=== PATIENT | female | born 1960 | race Caucasian/White ===

== ENCOUNTER 2016-10-09 18:35 | Observation (INO) | payer MEDICARE, BC, OTHER ==
[2016-10-09] MEDS ORDERED: NITROGLYCERIN SL TABS 0.4 MG TAB SUBLINGUAL STA ×3 (19:25)
[2016-10-09] MEDS ORDERED: ASPIRIN 81 MG CHEW PO STA (19:25)
--- NOTE | 2016-10-09 19:28 | ED ---
General Adult HPI - General Chief complaint: Chest Pain Stated complaint: CHEST PAIN, PRESSURE Time Seen by Provider: 10/09/16 19:00 Source: patient, RN notes reviewed Mode of arrival: wheelchair Limitations: no limitations - History of Present Illness Initial comments: Patient is a pleasant 55-year-old female presenting to the emergency Department with chest pressure. Onset was yesterday. Symptoms have been fairly steady. Patient did have some discomfort of her left mid arm. Patient does have some associated dyspnea. Symptoms seem to be exertional. Patient was nauseated yesterday and did vomit once. Patient has had some sweating. Patient did have similar symptoms years ago associated with a heart attack. Patient has had some cramping of her legs. Patient feels lightheaded. - Related Data Home Medications Medication Instructions Recorded Confirmed Atorvastatin [Lipitor] 40 mg PO HS 05/07/14 10/09/16 Furosemide [Lasix] 20 mg PO DAILY 05/07/14 10/09/16 Metoprolol Succinate [Toprol XL] 25 mg PO DAILY 05/07/14 10/09/16 Potassium Chloride [K-Tab] 10 meq PO DAILY 05/07/14 10/09/16 Aspirin EC [Ecotrin] 325 mg PO DAILY 10/09/16 10/09/16 Isosorbide Mononitrate ER [Imdur] 30 mg PO DAILY 10/09/16 10/09/16 Omeprazole 40 mg PO DAILY 10/09/16 10/09/16 Allergies Allergy/AdvReac Type Severity Reaction Status Date / Time Iodinated Contrast Media - AdvReac Severe Decreased Verified 10/09/16 19:29 Oral and Blood Pressure codeine AdvReac Nausea & Verified 10/09/16 19:29 Vomiting Review of Systems ROS Statement: Those systems with pertinent positive or pertinent negative responses have been documented in the HPI. ROS Other: All systems not noted in ROS Statement are negative. Constitutional: Denies: fever Eyes: Denies: eye pain ENT: Denies: ear pain Respiratory: Reports: dyspnea. Denies: cough Cardiovascular: Reports: chest pain Endocrine: Reports: fatigue Gastrointestinal: Denies: abdominal pain Genitourinary: Denies: dysuria Musculoskeletal: Denies: back pain Skin: Denies: rash Neurological: Denies: headache Past Medical History Past Medical History: Asthma, Hyperlipidemia, Hypertension, Myocardial Infarction ([place]) History of Any Multi-Drug Resistant Organisms: None Reported Past Surgical History: Heart Catheterization, Orthopedic Surgery Past Psychological History: No Psychological Hx Reported Smoking Status: Former smoker Past Alcohol Use History: None Reported Past Drug Use History: None Reported General Exam Limitations: no limitations General appearance: alert, in no apparent distress Head exam: Present: atraumatic Eye exam: Present: normal appearance, PERRL ENT exam: Present: normal oropharynx Neck exam: Present: normal inspection Respiratory exam: Present: normal lung sounds bilaterally Cardiovascular Exam: Present: regular rate, normal rhythm Expanded Peripheral pulses: 2+: Radial (R), Radial (L), Posterior Tibialis (R), Posterior Tibialis (L) GI/Abdominal exam: Present: soft. Absent: tenderness Extremities exam: Present: normal inspection. Absent: pedal edema, calf tenderness Neurological exam: Present: alert Psychiatric exam: Present: normal affect, normal mood Skin exam: Absent: rash Course Vital Signs 10/09/16 10/09/16 10/09/16 18:37 19:43 20:00 Temperature 96.9 F L Pulse Rate 104 H 101 H 95 Respiratory 18 18 18 Rate Blood Pressure 141/90 136/73 150/62 O2 Sat by Pulse 97 97 96 Oximetry 10/09/16 20:27 Temperature Pulse Rate 81 Respiratory 20 Rate Blood Pressure 141/61 O2 Sat by Pulse 99 Oximetry EKG Findings - EKG Comments: EKG Findings:: Sinus tachycardia 107. Frequent PVCs. AR 138. QRS 24. QT 342. QTC 456. Left axis. Inferior Q waves. There is some T wave inversion. Medical Decision Making - Medical Decision Making Patient reexamined and resting comfortably in bed. Patient and family updated on results and plan. Patient also updated regarding results of d-dimer and potential for blood clot. Patient nonetheless refuses computed tomography scan. VQ scan will be ordered. Case was discussed in detail with Dr. Kwan, who will admit for Dr. Live. - Lab Data Result diagrams: 10/09/16 19:00 10/09/16 19:00 Lab Results 10/09/16 10/09/16 10/09/16 Range/Units 19:00 19:00 19:00 WBC 7.9 (3.8-10.6) k/uL RBC 4.91 (3.80-5.40) m/uL Hgb 14.5 (11.4-16.0) gm/dL Hct 44.4 (34.0-46.0) % MCV 90.3 (80.0-100.0) fL MCH 29.6 (25.0-35.0) pg MCHC 32.8 (31.0-37.0) g/dL RDW 13.4 (11.5-15.5) % Plt Count 247 (150-450) k/uL Neutrophils % 63 % Lymphocytes % 25 % Monocytes % 6 % Eosinophils % 2 % Basophils % 1 % Neutrophils # 5.0 (1.3-7.7) k/uL Lymphocytes # 2.0 (1.0-4.8) k/uL Monocytes # 0.5 (0-1.0) k/uL Eosinophils # 0.2 (0-0.7) k/uL Basophils # 0.1 (0-0.2) k/uL PT (9.0-12.0) sec INR (<1.1) APTT (22.0-30.0) sec D-Dimer (<0.60) mg/L FEU Sodium 145 (137-145) mmol/L Potassium 3.4 L (3.5-5.1) mmol/L Chloride 105 (98-107) mmol/L Carbon Dioxide 27 (22-30) mmol/L Anion Gap 13 mmol/L BUN 16 (7-17) mg/dL Creatinine 0.74 (0.52-1.04) mg/dL Est GFR (MDRD) Af Amer >60 (>60 ml/min/1.73 sqM) Est GFR (MDRD) Non-Af >60 (>60 ml/min/1.73 sqM) Glucose 111 H (74-99) mg/dL Calcium 9.4 (8.4-10.2) mg/dL Magnesium 2.0 (1.6-2.3) mg/dL Total Bilirubin 0.8 (0.2-1.3) mg/dL AST 25 (14-36) U/L ALT 36 (9-52) U/L Alkaline Phosphatase 127 H (38-126) U/L Total Creatine Kinase 39 (30-135) U/L CK-MB (CK-2) 0.5 (0.0-2.4) ng/mL CK-MB (CK-2) Rel Index 1.3 Troponin I <0.012 (0.000-0.034) ng/mL NT-Pro-B Natriuret Pep pg/mL Total Protein 7.3 (6.3-8.2) g/dL Albumin 4.1 (3.5-5.0) g/dL 10/09/16 10/09/16 Range/Units 19:00 19:00 WBC (3.8-10.6) k/uL RBC (3.80-5.40) m/uL Hgb (11.4-16.0) gm/dL Hct (34.0-46.0) % MCV (80.0-100.0) fL MCH (25.0-35.0) pg MCHC (31.0-37.0) g/dL RDW (11.5-15.5) % Plt Count (150-450) k/uL Neutrophils % % Lymphocytes % % Monocytes % % Eosinophils % % Basophils % % Neutrophils # (1.3-7.7) k/uL Lymphocytes # (1.0-4.8) k/uL Monocytes # (0-1.0) k/uL Eosinophils # (0-0.7) k/uL Basophils # (0-0.2) k/uL PT 10.2 (9.0-12.0) sec INR 1.0 (<1.1) APTT 23.3 (22.0-30.0) sec D-Dimer 0.77 H (<0.60) mg/L FEU Sodium (137-145) mmol/L Potassium (3.5-5.1) mmol/L Chloride (98-107) mmol/L Carbon Dioxide (22-30) mmol/L Anion Gap mmol/L BUN (7-17) mg/dL Creatinine (0.52-1.04) mg/dL Est GFR (MDRD) Af Amer (>60 ml/min/1.73 sqM) Est GFR (MDRD) Non-Af (>60 ml/min/1.73 sqM) Glucose (74-99) mg/dL Calcium (8.4-10.2) mg/dL Magnesium (1.6-2.3) mg/dL Total Bilirubin (0.2-1.3) mg/dL AST (14-36) U/L ALT (9-52) U/L Alkaline Phosphatase (38-126) U/L Total Creatine Kinase (30-135) U/L CK-MB (CK-2) (0.0-2.4) ng/mL CK-MB (CK-2) Rel Index Troponin I (0.000-0.034) ng/mL NT-Pro-B Natriuret Pep 102 pg/mL Total Protein (6.3-8.2) g/dL Albumin (3.5-5.0) g/dL - Radiology Data Radiology results: image reviewed (Chest x-ray shows stable cardiomegaly. No acute process.) Disposition Clinical Impression: Unstable angina pectoris Disposition: ADMITTED IP TO THIS HOSP
[2016-10-09 19:44] LABS: Basophils # (A) 0.1 k/uL (0-0.2); Basophils % (A) 1 %; CH 29.9; CHCM 33.2; Eosinophils # (A) 0.2 k/uL (0-0.7); Eosinophils % (A) 2 %; HCT 44.4 % (34.0-46.0); HDW 2.42; HGB 14.5 gm/dL (11.4-16.0); Luc # (Auto) 0.17; Luc % (Auto) 2; Lymphocytes % (A) 25 %; MCH 29.6 pg (25.0-35.0); MCHC 32.8 g/dL (31.0-37.0); MCV 90.3 fL (80.0-100.0); Mean Platelet Volume 7.9; Monocytes # (A) 0.5 k/uL (0-1.0); Monocytes % (A) 6 %; Neutrophils % (A) 63 %; RBC 4.91 m/uL (3.80-5.40); RDW 13.4 % (11.5-15.5); WBC 7.9 k/uL (3.8-10.6); WBC (Perox) 8.04
[2016-10-09 19:49] LABS: ALT 36 U/L (9-52); AST 25 U/L (14-36); Alkaline Phosphatase 127 U/L (38-126); Anion Gap 13 mmol/L; Blood Urea Nitrogen 16 mg/dL (7-17); Calcium 9.4 mg/dL (8.4-10.2); Carbon Dioxide 27 mmol/L (22-30); Chloride 105 mmol/L (98-107); Glucose 111 mg/dL (74-99); Non-African American GFR(MDRD) >60 (>60 ml/min/1.73 sqM); Potassium 3.4 mmol/L (3.5-5.1); Sodium 145 mmol/L (137-145); Total Bilirubin 0.8 mg/dL (0.2-1.3); Total Protein 7.3 g/dL (6.3-8.2)
--- NOTE | 2016-10-09 19:49 | XR ---
EXAMINATION TYPE: XR chest 2V DATE OF EXAM: 10/09/2016 7:35 PM COMPARISON: Prior chest x-ray 07 May 2014 HISTORY: Chest pain, history of myocardial infarct TECHNIQUE: Frontal and lateral views of the chest are obtained. FINDINGS: Heart is stable and enlarged. Prominent lung volumes may be indicative of COPD. No pneumon ia, pneumothorax, or pleural effusion is evident. There are overlying cardiac leads. Pulmonary vascul arity and marsha not significantly changed. IMPRESSION: No acute cardiopulmonary process. Stable cardiomegaly.
[2016-10-09 19:59] LABS: Creatine Kinase 39 U/L (30-135)
[2016-10-09] MEDS ORDERED: ACETAMINOPHEN TAB 325 MG TAB PO STA (19:59)
[2016-10-09 20:11] LABS: Creatine Kinase MB 0.5 ng/mL (0.0-2.4); Troponin I <0.012 ng/mL (0.000-0.034)
[2016-10-09 20:21] LABS: Partial Thromboplastin Time 23.3 sec (22.0-30.0); Prothrombin Time 10.2 sec (9.0-12.0)
[2016-10-09] MEDS ORDERED: FAMOTIDINE 20 MG/2 ML VIAL IV STA (20:42)
[2016-10-09] MEDS ORDERED: diphenhydrAMINE 50 MG/ML 1 ML VIAL IVP STA (20:42)
[2016-10-09] MEDS ORDERED: RX INFO: IV CONTRAST WAS GIVEN 1 EACH MISC MISCELLANE PRN (20:42)
[2016-10-09] MEDS ORDERED: methylPREDNISolone SOD SUCCI 125 MG/2 ML VIAL IV STA (20:42)
[2016-10-09] MEDS ORDERED: NITROGLYCERIN SL TABS 0.4 MG TAB SUBLINGUAL PRN (21:01)
[2016-10-09] MEDS ORDERED: HEPARIN SODIUM,PORCINE 5,000 UNIT/ML 1 ML VIAL IV PRN (21:01)
[2016-10-09] MEDS ORDERED: HEPARIN SODIUM,PORCINE 5,000 UNIT/ML 1 ML VIAL IV ONE (21:01)
[2016-10-09] MEDS ORDERED: HEPARIN SODIUM,PORCINE/D5W PMX 25,000 UNIT in DEXTROSE/WATER 1 500ML.BAG IV SCH (21:15)
[2016-10-09] MEDS ORDERED: SODIUM CHLORIDE 0.9% 1,000 ML IV SCH (21:30)
[2016-10-09 22:14] VITALS: BMI 50.1
[2016-10-09] MEDS ORDERED: ONDANSETRON 4 MG/2 ML VIAL IVP PRN (22:30)
[2016-10-09] MEDS ORDERED: HYDROmorphone 1 MG/ML 1 ML SYRINGE IVP PRN (22:34)
[2016-10-09] MEDS ORDERED: ATORVASTATIN 40 MG TAB PO SCH (22:45)
--- NOTE | 2016-10-09 23:22 | NM ---
EXAMINATION TYPE: Nuclear medicine ventilation and perfusion lung scan. DATE OF EXAM: 10/09/2016 11:12 PM COMPARISON: NONE HISTORY: Pain and dyspnea. TECHNIQUE: Utilizing inhalation of 70.9 mCi Tc 99m DTPA aerosol and intravenous injection of 5.36 mC i of Tc 99m MAA, ventilation and perfusion images are acquired post injection in multiple projections . FINDINGS: Normal radiotracer distribution is noted in the lungs. There is no evidence of mismatched defects. IMPRESSION: There is a low probability for acute pulmonary embolism.
[2016-10-09] MEDS: METOPROLOL SUCCINATE (ER) 25 MG TAB.ER.24H PO SCH (23:24)
[2016-10-09] MEDS: POTASSIUM CHLORIDE ER 10 MEQ TAB.ER.PRT PO SCH (23:24)
[2016-10-09] MEDS: NITROGLYCERIN OINT 1 INCH/GM PACKET TOPICAL SCH (23:24)
[2016-10-09] MEDS: PANTOPRAZOLE 40 MG TABLET PO SCH (23:24)
[2016-10-09] MEDS: ISOSORBIDE MONONITRATE ER 30 MG TAB.ER.24H PO SCH (23:24)
[2016-10-10 02:49] LABS: Mean Platelet Volume 7.5
[2016-10-10 02:59] LABS: Cholesterol 178 mg/dL (<200); Creatine Kinase 28 U/L (30-135); HDL Cholesterol 64 mg/dL (40-60); Triglycerides 138 mg/dL (<150)
[2016-10-10 03:12] LABS: Creatine Kinase MB 0.4 ng/mL (0.0-2.4); Troponin I <0.012 ng/mL (0.000-0.034)
[2016-10-10] MEDS ORDERED: ACETAMINOPHEN TAB 325 MG TAB PO PRN (04:26)
[2016-10-10] MEDS: NITROGLYCERIN OINT 1 INCH/GM PACKET TOPICAL SCH (04:28)
[2016-10-10 08:27] LABS: Creatine Kinase 27 U/L (30-135)
[2016-10-10 08:39] LABS: Creatine Kinase MB 0.4 ng/mL (0.0-2.4); Troponin I <0.012 ng/mL (0.000-0.034)
[2016-10-10] MEDS ORDERED: FUROSEMIDE 20 MG TAB PO SCH (09:00)
[2016-10-10] MEDS ORDERED: ASPIRIN 325 MG TAB PO SCH (09:00)
[2016-10-10] MEDS ORDERED: POTASSIUM CHLORIDE ORAL LIQUID 40 MEQ/30 ML CUP PO ONE (09:28)
[2016-10-10] MEDS ORDERED: REGADENOSON 0.4 MG/5 ML SYRINGE IV ONE (09:30)
[2016-10-10] MEDS ORDERED: ASPIRIN 81 MG CHEW PO SCH (09:30)
[2016-10-10] MEDS ORDERED: AMINOPHYLLINE 500 MG/20 ML VIAL IV PRN (09:30)
[2016-10-10] MEDS: PANTOPRAZOLE 40 MG TABLET PO SCH (10:12)
[2016-10-10] MEDS: METOPROLOL SUCCINATE (ER) 25 MG TAB.ER.24H PO SCH (10:12)
[2016-10-10] MEDS: ISOSORBIDE MONONITRATE ER 30 MG TAB.ER.24H PO SCH (10:12)
[2016-10-10] MEDS: POTASSIUM CHLORIDE ER 10 MEQ TAB.ER.PRT PO SCH (10:13)
--- NOTE | 2016-10-10 10:20 | CONS ---
DATE OF CONSULTATION: This is a 55-year-old morbidly obese lady with a history of palpitations and PVCs who was seen by Dr. Briones and placed on beta edson several years ago. She has not been very good with follow-up. She came into the hospital with mostly complaints of what seems to be a left arm discomfort. She felt discomfort in the left upper arm and left mid arm, which seemed to come on spontaneously and not necessarily with exertion. She had some shortness of breath as well. She did not have any chest discomfort. She also had occasional palpitations. She came in with these symptoms, was seen in the emergency room, had a mildly elevated d-dimer. She had a contrast allergy and therefore went on to have a VQ scan, which was low probability. Her left arm pain has resolved. She feels comfortable but on questioning, with activity she has shortness of breath, which has increased lately and the left arm pain seems to be a one-time thing and has not recurred. However, she has uncomfortable feeling in the chest with shortness of breath and she attends to her father who has a congestive heart failure and takes care of him, but she herself is not very active physically. In view of her nondescript exertional shortness of breath, which seems to have increased and also some tightness in the chest from time to time, I am recommending a Lexiscan stress test and echocardiogram. This was also offered as an outpatient but patient wants to stay back and have test done while she is here. Her troponins are normal. EKG revealed sinus mechanism with isolated PVCs and nonspecific precordial ST-T changes. She is already on a beta edson. At the time of my evaluation, she is quite asymptomatic. PAST MEDICAL HISTORY: 1. Hypertension. 2. Palpitations with PVCs on beta edson seen by Dr. Briones several years ago. 3. She also has hyperlipidemia, bronchial asthma and in 1997 she had an episode of angina. 4. She has had 5 cardiac caths according to her. The last one in 2009 and was told she has no more than a 50% lesion, and this was performed in [facility]. She had a contrast allergy on the first cardiac catheterization in 1997 but since then with premedication she has not had issues. Medications at home include atorvastatin, Lasix 20 mg daily, Toprol-XL 25 mg daily, potassium 10 mg daily, aspirin 325 mg daily, Imdur 30 mg daily, omeprazole 40 mg daily. ALLERGIES: She is ALLERGIC TO CODEINE AND IODINE CONTRAST. On examination, blood pressure is 120/70, pulse rate 68 per minute, regular. HEENT: Unremarkable. Fundus was not examined by me. Neck is supple. There is no JVD. I do not hear a carotid bruit. Heart exam reveals S1 and S2 heard normally without a rub, murmur or gallop. Lungs are clear. Abdomen is soft, nontender. Lower extremities reveal normal pulses. No edema. Central nervous system is normal. EKG revealed sinus mechanism, precordial nonspecific ST-T changes which are not new. IMPRESSION: 1. Atypical chest pain in a patient with a moderate risk factor profile. 2. History of PVCs and beta edson. 3. Morbid obesity. 4. Hypertension. 5. Hypercholesterolemia. 6. History of unremarkable cardiac catheterization in 2009. RECOMMENDATIONS: I am recommending that we discontinue IV heparin, put her on a Hep-Lock, increase activity, switch her to Imdur only, discontinue nitro paste, increase activity, perform an echocardiogram and a Lexiscan stress test tomorrow morning and if these are normal, she can be discharged. I discussed my thoughts in detail with the patient as well as her . Thank you very much for the consult.
[2016-10-10] MEDS ORDERED: HEPARIN SODIUM,PORCINE 5,000 UNIT/ML 1 ML VIAL SQ SCH (16:00)
[2016-10-10 19:45] LABS: Anion Gap 10 mmol/L; Blood Urea Nitrogen 13 mg/dL (7-17); Carbon Dioxide 24 mmol/L (22-30); Chloride 105 mmol/L (98-107); Glucose 131 mg/dL (74-99); Non-African American GFR(MDRD) >60 (>60 ml/min/1.73 sqM); Potassium 4.1 mmol/L (3.5-5.1); Sodium 139 mmol/L (137-145)
[2016-10-10 20:47] VITALS: BP 127/55; PULSE 67; RESP 16; TEMP 98.6
--- NOTE | 2016-10-11 09:36 | HP ---
DATE OF ADMISSION: 10/09/2016 CHIEF COMPLAINT: Chest pain. HISTORY OF PRESENT ILLNESS: Ms. Blue is a 55-year-old female with known history of hypertension, hyperlipidemia, morbid obesity, history of [place], came to the ER with complaints of chest pain along with discomfort in the left arm. Evidently patient has not been feeling well for the past 2 days and having nausea and pressure-like sensation in the chest. The patient last night when she was [id number] with the family, suddenly she felt chest pain and blood pressure was elevated at the time when she was checked and family suggested her to go to the ER. Apparently patient has been dealing with stressful situation at family and her father being ill and also her house being remodeled. The patient did have similar symptoms years ago associated with heart attack. Patient does not have any history of stent placement. Patient had a previous cardiac catheterization. Initially her Troponin has been negative. EKG showed sinus rhythm with PVCs. Otherwise, patient is currently chest pain free. REVIEW OF SYSTEMS: CONSTITUTIONAL: No fever. No chills. RESPIRATORY: No cough or sputum production. CARDIOVASCULAR: No chest pain or shortness of breath. No leg swelling. ABDOMEN: No nausea, vomiting, abdominal pain. GENITOURINARY: Negative. ENDOCRINE: Negative. PSYCHIATRIC: Negative. SKIN: Negative. All other fourteen-point review of system negative except as above. Past medical history includes: Hypertension, hyperlipidemia, history of [place] and asthma. PAST SURGICAL HISTORY: Cardiac catheterization, no PCI, orthopedic surgery. SOCIAL HISTORY: Patient is a former smoker, quit several years ago. Denied alcohol or drugs or IVDU. FAMILY HISTORY: History of father had bypass graft and valvular heart disease and coronary artery disease. ALLERGIES INCLUDE IODINATED CONTRAST, ORAL AND CODEINE. Home medications: 1. Atorvastatin. 2. Lasix. 3. Toprol. 4. Potassium chloride. 5. Aspirin. 6. Imdur. 7. Omeprazole. PHYSICAL EXAMINATION: A 55-year-old female sitting in a chair comfortably; awake, alert, oriented times three. The patient appears to be in no apparent distress. VITALS: Blood pressure is 101/58. Pulse is 73, respiration 18, temperature afebrile, pulse ox 94% on room air. HEENT: Atraumatic, normocephalic. Neck is supple. No JVD. CVS: S1, S2 heard. No murmurs, no gallop. LUNGS: Bilateral air entry is present. No wheezing. No crackles. ABDOMEN: Soft, obese. Bowel sounds are present. STOPPER MAKER: Awake, alert, oriented, x3. No focal deficit. EXTREMITIES: No edema. Pulses palpable bilaterally. No clubbing or cyanosis. PSYCHIATRIC: Cooperative. LABORATORY DATA: WBC 7.9, hemoglobin 14.5, platelets 247. D-dimer 0.77. Sodium 145, potassium 3.4, chloride 105, bicarb 27. BUN 16, creatinine 0.74. Troponin x3 is negative. LDL is 86. HDL 64. EKG sinus rhythm with PVCs. CHEST X-RAY: No acute cardiopulmonary process and PET scan showed low probability for PE. IMPRESSION: 1. Atypical chest pain. Rule out acute coronary syndrome. Troponin times two negative. EKG showed sinus rhythm. We will continue the telemetry monitoring. 2. History of premature ventricular contractions and currently on beta blockers. 3. Hypertension. 4. Hyperlipidemia. 5. History of myocardial infarction, status post cardiac catheterization in 2009. 6. Anxiety and emotional stress at home. 7. Deep venous thrombosis prophylaxis. 8. Elevated D-dimer, VQ scan showed low probability for pulmonary embolism. 9. PATIENT IS ALLERGIC TO CONTRAST. DISCUSSION AND PLAN: Patient will be continued on home blood pressure medications and serial EKGs and troponins. Cardiology is planning for Lexiscan stress test tomorrow. Otherwise, we will continue the current management and follow up closely. Further recommendations based on the clinical course.
--- NOTE | 2016-12-06 06:47 | DS ---
DATE OF ADMISSION: 10/09/2016 DATE OF DISCHARGE: 10/10/2016 The patient left AGAINST MEDICAL ADVICE. DISCHARGE DIAGNOSES: 1. Atypical chest pain. Troponin x2 negative. Cardiology is planning for Lexiscan stress test tomorrow, but patient left against medical advice. 2. History of premature ventricular contractions , currently on beta blockers. 3. Hypertension. 4. Hyperlipidemia. 5. History of cardiac catheterization in 2009. It was normal. 6. Anxiety and emotional stress at home. 7. History of myocardial infarction. 8. Deep venous thrombosis prophylaxis. 9. Elevated D-dimer. VQ scan showed low probability for pulmonary embolism. 10. Patient is allergic to CONTRAST. HOSPITAL COURSE: Ms. Blue is a 55-year-old female with a known history of anxiety and recent emotional stress at home admitted to the hospital with complaints of chest pain radiating along the left arm. Initial EKG as well as troponin x2 are negative at this time. Due to moderate risk for coronary artery disease, patient was scheduled for Lexiscan stress test as per Cardiology. Patient otherwise is very anxious and wants to go home. Patient was advised that she might have acute [place] and ( ) complications including . The patient still wants to leave AGAINST MEDICAL ADVICE. The patient is alert and oriented x3 and verbalizes her understanding of acute situation. Otherwise patient left AGAINST MEDICAL ADVICE.
== END 2016-10-10 20:45 | disposition left against medical advice (07) ==
LOC: EC 18:35 → 3OBS 21:01
PROVIDERS: ADMIT Hospitalist; ATTEND Hospitalist
DX: R07.89 Other chest pain (principal); I49.3 Ventricular premature depolarization; E66.01 Morbid (severe) obesity due to excess calories; E78.00 Pure hypercholesterolemia, unspecified; E78.5 Hyperlipidemia, unspecified; F41.9 Anxiety disorder, unspecified; I10 Essential (primary) hypertension; I25.2 Old myocardial infarction; Z79.82 Long term (current) use of aspirin; Z87.891 Personal history of nicotine dependence; R42 Dizziness and giddiness; Z79.899 Other long term (current) drug therapy; Z88.5 Allergy status to narcotic agent; Z91.041 Radiographic dye allergy status; Z82.49 Family history of ischemic heart disease and other diseases of the circulatory system; R06.02 Shortness of breath
CPT/HCPCS: 36415; 93005; 85379; 83880; 80061; 80053; 80048; 82550 ×2; 82553 ×2; 83735; 84484 ×2; 85025; 85049; 85610; 85730 ×2; 71020; 78582; 99285; G0378 ×2; A9540; A9567; J1644 ×3; J2785; 96366; 96372

== ENCOUNTER 2017-01-06 10:13 | Inpatient (IN) | payer BC, MEDICARE, OTHER ==
[2017-01-06] MEDS ORDERED: ALBUTEROL NEBULIZED 2.5 MG/3 ML INHALATION STA (10:42)
[2017-01-06] MEDS ORDERED: SODIUM CHLORIDE 0.9% 1,000 ML IV STA ×2 (10:42)
[2017-01-06] MEDS ORDERED: IPRATROPIUM 0.5 MG/2.5 ML NEBU INHALATION STA (10:42)
--- NOTE | 2017-01-06 11:33 | ED ---
General Adult HPI - General Chief complaint: Upper Respiratory Infection Stated complaint: NADIA, CHEST PRESSURE Time Seen by Provider: 01/06/17 10:41 Source: patient, RN notes reviewed, old records reviewed Mode of arrival: wheelchair Limitations: no limitations - History of Present Illness Initial comments: This is a 48-year-old female here for evaluation. This patient presents for evaluation of shortness of breath cough and congestion, history of asthma and COPD. No recent hospital admissions. No travel history no sick contacts increased sputum production and increased cough episodic fevers at home. Patient also has history of high blood pressure high cholesterol. States that this time she does not feel well - Related Data Home Medications Medication Instructions Recorded Confirmed Atorvastatin [Lipitor] 40 mg PO HS 05/07/14 01/06/17 Furosemide [Lasix] 40 mg PO MOWEFR 05/07/14 01/06/17 Metoprolol Succinate [Toprol XL] 25 mg PO DAILY 05/07/14 01/06/17 Potassium Chloride [K-Tab] 10 meq PO BID 05/07/14 01/06/17 Aspirin EC [Ecotrin] 325 mg PO BID 10/09/16 01/06/17 Isosorbide Mononitrate ER [Imdur] 30 mg PO DAILY 10/09/16 01/06/17 Omeprazole 40 mg PO DAILY 10/09/16 01/06/17 Nitroglycerin Sl Tabs [Nitrostat] 0.4 mg SUBLINGUAL Q5M PRN 10/10/16 01/06/17 Albuterol Inhaler [Ventolin Hfa 1 - 2 puff INHALATION RT-Q6H PRN 01/06/17 Inhaler] Fluticasone/Salmeterol [Advair 1 puff INHALATION RT-BID 01/06/17 01/06/17 250-50 Diskus] Furosemide [Lasix] 20 mg PO SUTUTHSA 01/06/17 01/06/17 Allergies Allergy/AdvReac Type Severity Reaction Status Date / Time Iodinated Contrast Media - AdvReac Severe Decreased Verified 01/06/17 10:31 Oral and Blood Pressure codeine AdvReac Nausea & Verified 01/06/17 10:31 Vomiting Review of Systems ROS Statement: Those systems with pertinent positive or pertinent negative responses have been documented in the HPI. ROS Other: All systems not noted in ROS Statement are negative. Past Medical History Past Medical History: Asthma, Hyperlipidemia, Hypertension, Myocardial Infarction ([place]) Last Myocardial Infarction Date:: 1997 History of Any Multi-Drug Resistant Organisms: None Reported Past Surgical History: Heart Catheterization, Orthopedic Surgery Additional Past Surgical History / Comment(s): B/L knee replacement Past Anesthesia/Blood Transfusion Reactions: No Reported Reaction Past Psychological History: No Psychological Hx Reported Smoking Status: Former smoker Past Alcohol Use History: Rare Past Drug Use History: None Reported - Past Family History Father Family Medical History: Congestive Heart Failure (CHF), CVA/TIA, Hyperlipidemia , Hypertension Mother Additional Family Medical History / Comment(s): Epilepsy General Exam Limitations: no limitations General appearance: alert, in no apparent distress Head exam: Present: atraumatic, normocephalic, normal inspection Eye exam: Present: normal appearance, PERRL, EOMI. Absent: scleral icterus, conjunctival injection, periorbital swelling ENT exam: Present: normal exam, mucous membranes dry, mucous membranes moist Neck exam: Present: normal inspection. Absent: tenderness, meningismus, lymphadenopathy Respiratory exam: Present: normal lung sounds bilaterally, wheezes, accessory muscle use, decreased breath sounds, prolonged expiratory. Absent: respiratory distress, rales, rhonchi, stridor Cardiovascular Exam: Present: regular rate, normal rhythm, normal heart sounds. Absent: systolic murmur, diastolic murmur, rubs, gallop, clicks GI/Abdominal exam: Present: soft, normal bowel sounds. Absent: distended, tenderness, guarding, rebound, rigid Extremities exam: Present: normal inspection, full ROM, normal capillary refill. Absent: tenderness, pedal edema, joint swelling, calf tenderness Back exam: Present: normal inspection Neurological exam: Present: alert, oriented X3, CN II-XII intact Psychiatric exam: Present: normal affect, normal mood Skin exam: Present: warm, dry, intact, normal color. Absent: rash Course Vital Signs 01/06/17 01/06/17 01/06/17 10:27 11:01 11:31 Temperature 98.3 F 98.4 F Pulse Rate 74 74 61 Respiratory 20 18 Rate Blood Pressure 122/74 140/79 O2 Sat by Pulse 94 L 96 Oximetry 01/06/17 01/06/17 01/06/17 11:47 12:02 12:16 Temperature Pulse Rate 76 85 85 Respiratory Rate Blood Pressure O2 Sat by Pulse Oximetry 01/06/17 01/06/17 13:29 14:05 Temperature 98.4 F Pulse Rate 71 Respiratory 18 20 Rate Blood Pressure 135/63 O2 Sat by Pulse 97 Oximetry - Reevaluation(s) Reevaluation #1: 01/06/17 14:11 Patient wouldn't minimal to no improvement prolonged breathing treatment EKG Findings - EKG Comments: EKG Findings:: EKG shows normal sinus rhythm rate 70, NH 144, QRS 96, QTC 444 Medical Decision Making - Medical Decision Making 48 female the ER for evaluation regarding shortness of breath cough and congestion history of asthma history of high cholesterol and hypertension. Patient will be admitted for IV antibiotics secondary to COPD exacerbation, cavalcade by underlying pneumonia. - Lab Data Result diagrams: 01/06/17 11:27 01/06/17 11:27 Lab Results 01/06/17 01/06/17 01/06/17 Range/Units 11:27 11:27 11:27 WBC 11.9 H (3.8-10.6) k/uL RBC 4.61 (3.80-5.40) m/uL Hgb 13.8 (11.4-16.0) gm/dL Hct 41.0 (34.0-46.0) % MCV 88.8 (80.0-100.0) fL MCH 30.0 (25.0-35.0) pg MCHC 33.8 (31.0-37.0) g/dL RDW 13.9 (11.5-15.5) % Plt Count 231 (150-450) k/uL Neutrophils % 77 % Lymphocytes % 13 % Monocytes % 6 % Eosinophils % 1 % Basophils % 1 % Neutrophils # 9.2 H (1.3-7.7) k/uL Lymphocytes # 1.5 (1.0-4.8) k/uL Monocytes # 0.7 (0-1.0) k/uL Eosinophils # 0.1 (0-0.7) k/uL Basophils # 0.1 (0-0.2) k/uL PT (9.0-12.0) sec INR (<1.1) APTT (22.0-30.0) sec Sodium 144 (137-145) mmol/L Potassium 4.0 (3.5-5.1) mmol/L Chloride 104 (98-107) mmol/L Carbon Dioxide 28 (22-30) mmol/L Anion Gap 12 mmol/L BUN 12 (7-17) mg/dL Creatinine 0.61 (0.52-1.04) mg/dL Est GFR (MDRD) Af Amer >60 (>60 ml/min/1.73 sqM) Est GFR (MDRD) Non-Af >60 (>60 ml/min/1.73 sqM) Glucose 106 H (74-99) mg/dL Calcium 9.2 (8.4-10.2) mg/dL Magnesium 2.1 (1.6-2.3) mg/dL Total Bilirubin 1.0 (0.2-1.3) mg/dL AST 25 (14-36) U/L ALT 35 (9-52) U/L Alkaline Phosphatase 169 H (38-126) U/L Total Creatine Kinase 27 L (30-135) U/L CK-MB (CK-2) 0.3 (0.0-2.4) ng/mL CK-MB (CK-2) Rel Index 1.1 Troponin I <0.012 (0.000-0.034) ng/mL NT-Pro-B Natriuret Pep pg/mL Total Protein 7.5 (6.3-8.2) g/dL Albumin 4.1 (3.5-5.0) g/dL 01/06/17 01/06/17 Range/Units 11:27 11:27 WBC (3.8-10.6) k/uL RBC (3.80-5.40) m/uL Hgb (11.4-16.0) gm/dL Hct (34.0-46.0) % MCV (80.0-100.0) fL MCH (25.0-35.0) pg MCHC (31.0-37.0) g/dL RDW (11.5-15.5) % Plt Count (150-450) k/uL Neutrophils % % Lymphocytes % % Monocytes % % Eosinophils % % Basophils % % Neutrophils # (1.3-7.7) k/uL Lymphocytes # (1.0-4.8) k/uL Monocytes # (0-1.0) k/uL Eosinophils # (0-0.7) k/uL Basophils # (0-0.2) k/uL PT 10.6 (9.0-12.0) sec INR 1.0 (<1.1) APTT 23.4 (22.0-30.0) sec Sodium (137-145) mmol/L Potassium (3.5-5.1) mmol/L Chloride (98-107) mmol/L Carbon Dioxide (22-30) mmol/L Anion Gap mmol/L BUN (7-17) mg/dL Creatinine (0.52-1.04) mg/dL Est GFR (MDRD) Af Amer (>60 ml/min/1.73 sqM) Est GFR (MDRD) Non-Af (>60 ml/min/1.73 sqM) Glucose (74-99) mg/dL Calcium (8.4-10.2) mg/dL Magnesium (1.6-2.3) mg/dL Total Bilirubin (0.2-1.3) mg/dL AST (14-36) U/L ALT (9-52) U/L Alkaline Phosphatase (38-126) U/L Total Creatine Kinase (30-135) U/L CK-MB (CK-2) (0.0-2.4) ng/mL CK-MB (CK-2) Rel Index Troponin I (0.000-0.034) ng/mL NT-Pro-B Natriuret Pep 157 pg/mL Total Protein (6.3-8.2) g/dL Albumin (3.5-5.0) g/dL - Radiology Data Radiology results: report reviewed (Chest x-ray suspicious for infiltrate versus atelectasis), image reviewed Disposition Clinical Impression: Asthmatic bronchitis, Community acquired bacterial pneumonia Disposition: ADMITTED IP TO THIS [facility] Condition: Good Referrals: Osbaldo Live DO [Primary Care Provider] - 1-2 days
[2017-01-06 11:38] LABS: Basophils # (A) 0.1 k/uL (0-0.2); Basophils % (A) 1 %; CH 29.6; CHCM 33.5; Eosinophils # (A) 0.1 k/uL (0-0.7); Eosinophils % (A) 1 %; HDW 2.55; HGB 13.8 gm/dL (11.4-16.0); Luc # (Auto) 0.22; Luc % (Auto) 2; Lymphocytes # (A) 1.5 k/uL (1.0-4.8); Lymphocytes % (A) 13 %; MCHC 33.8 g/dL (31.0-37.0); MCV 88.8 fL (80.0-100.0); Monocytes # (A) 0.7 k/uL (0-1.0); Monocytes % (A) 6 %; Neutrophils # (A) 9.2 k/uL (1.3-7.7); Neutrophils % (A) 77 %; RBC 4.61 m/uL (3.80-5.40); RDW 13.9 % (11.5-15.5); WBC 11.9 k/uL (3.8-10.6); WBC (Perox) 10.65
[2017-01-06 11:49] LABS: ALT 35 U/L (9-52); AST 25 U/L (14-36); Alkaline Phosphatase 169 U/L (38-126); Anion Gap 12 mmol/L; Blood Urea Nitrogen 12 mg/dL (7-17); Calcium 9.2 mg/dL (8.4-10.2); Carbon Dioxide 28 mmol/L (22-30); Chloride 104 mmol/L (98-107); Glucose 106 mg/dL (74-99); Magnesium 2.1 mg/dL (1.6-2.3); Non-African American GFR(MDRD) >60 (>60 ml/min/1.73 sqM); Sodium 144 mmol/L (137-145); Total Protein 7.5 g/dL (6.3-8.2)
[2017-01-06 11:55] LABS: Partial Thromboplastin Time 23.4 sec (22.0-30.0); Prothrombin Time 10.6 sec (9.0-12.0)
[2017-01-06 12:03] LABS: Creatine Kinase 27 U/L (30-135)
[2017-01-06 12:16] LABS: Creatine Kinase MB 0.3 ng/mL (0.0-2.4); Troponin I <0.012 ng/mL (0.000-0.034)
--- NOTE | 2017-01-06 13:03 | XR ---
EXAMINATION TYPE: XR chest 2V DATE OF EXAM: 01/06/2017 12:53 PM COMPARISON: 10/09/2016 TECHNIQUE: PA and lateral views submitted. HISTORY: Difficulty breathing FINDINGS: The lungs are clear and there is no pneumothorax, pleural effusion, or focal pneumonia. The heart i s enlarged. Hyperinflation suggests COPD. Diffuse osteopenia noted. Degenerative change of the spine. IMPRESSION: 1. Correlate for COPD. The degree of underlying chronic interstitial lung disease suspected. Correlat e clinically.
[2017-01-06] MEDS ORDERED: methylPREDNISolone SOD SUCCI 125 MG/2 ML VIAL IV STA (14:05)
[2017-01-06] MEDS ORDERED: AZITHROMYCIN 500 MG in SODIUM CHLORIDE 0.9% 250 ML IVPB STA (14:09)
[2017-01-06] MEDS: IPRATROPIUM-ALBUTEROL 3 ML NEB INHALATION SCH ×2 (15:45→20:16)
[2017-01-06] MEDS: SODIUM CHLORIDE 0.9% 1,000 ML IV SCH (17:14)
[2017-01-06 17:24] LABS: Glucose,Whole Blood 185 mg/dL (75-99)
[2017-01-06] MEDS ORDERED: NITROGLYCERIN SL TABS 0.4 MG TAB SUBLINGUAL PRN (17:35)
[2017-01-06] MEDS: methylPREDNISolone SOD SUCCI 125 MG/2 ML VIAL IV SCH (18:37)
[2017-01-06] MEDS: FUROSEMIDE 20 MG TAB PO SCH (18:38)
[2017-01-06 19:16] LABS: Hemoglobin A1C 5.8 % (4.2-6.1)
[2017-01-06] MEDS: ASPIRIN 325 MG TAB PO SCH (20:47)
[2017-01-06] MEDS: POTASSIUM CHLORIDE ER 10 MEQ TAB.ER.PRT PO SCH (20:47)
[2017-01-06] MEDS: ATORVASTATIN 40 MG TAB PO SCH (20:48)
[2017-01-06 21:38] LABS: Glucose,Whole Blood 245 mg/dL (75-99)
[2017-01-06] MEDS: INSULIN LISPRO (humaLOG) 300 UNIT/3 ML VIAL SQ SCH (21:46)
[2017-01-07] MEDS: methylPREDNISolone SOD SUCCI 125 MG/2 ML VIAL IV SCH ×5 (00:05→22:59)
[2017-01-07 07:01] LABS: Glucose,Whole Blood 187 mg/dL (75-99)
[2017-01-07] MEDS: METOPROLOL SUCCINATE (ER) 25 MG TAB.ER.24H PO SCH (07:40)
[2017-01-07] MEDS: ISOSORBIDE MONONITRATE ER 30 MG TAB.ER.24H PO SCH (07:41)
[2017-01-07] MEDS: PANTOPRAZOLE 40 MG TABLET PO SCH (07:41)
[2017-01-07] MEDS: POTASSIUM CHLORIDE ER 10 MEQ TAB.ER.PRT PO SCH ×2 (07:41→21:44)
[2017-01-07] MEDS: INSULIN LISPRO (humaLOG) 300 UNIT/3 ML VIAL SQ SCH ×4 (07:41→22:58)
[2017-01-07] MEDS: FUROSEMIDE 40 MG TAB PO SCH (07:41)
[2017-01-07] MEDS: ASPIRIN 325 MG TAB PO SCH ×2 (07:41→21:44)
[2017-01-07] MEDS: IPRATROPIUM-ALBUTEROL 3 ML NEB INHALATION SCH ×4 (08:07→20:24)
[2017-01-07] MEDS ORDERED: AZITHROMYCIN 500 MG in SODIUM CHLORIDE 0.9% 250 ML IVPB SCH (09:00)
[2017-01-07] MEDS: ENOXAPARIN 40 MG/0.4 ML SYRINGE SQ SCH (09:17)
[2017-01-07 12:39] LABS: Glucose,Whole Blood 158 mg/dL (75-99)
[2017-01-07 15:18] VITALS: BMI 50.8
[2017-01-07] MEDS: SODIUM CHLORIDE 0.9% 1,000 ML IV SCH (15:19)
--- NOTE | 2017-01-07 15:45 | P.HPIM ---
History of Present Illness H&P Date: 01/07/17 Chief Complaint: Shortness of breath Patient is a 56-year-old female, patient of Dr. Osbaldo Live in the outpatient setting, with medical history significant for asthma, COPD,, hyperlipidemia, hypertension, hyperlipidemia, coronary artery disease and previous myocardial infarction, bilateral cataracts, and remote nicotine dependence. Patient presented to the emergency department with complaints of shortness of breath associated with cough and congestion and increased sputum production. Chest x-ray with evidence of COPD. Mild leukocytosis on admission. Troponin less than 0.012. BNP 157. Afebrile. Vital signs normal. Lung sounds on admission with evidence of wheezes, accessory muscle use, decreased breath sounds, and prolonged expiratory with minimal improvement after breathing treatment. Patient was admitted to the medical floor for IV antibiotics, steroids, nebulized updraft treatments, and supplemental oxygen use with consult to Dr. Chahal for pulmonary service. Upon examination, patient is feeling better. Patient reports she didn't sleep well last night. Denies fevers, chills, nausea, vomiting, increased shortness of breath, chest pain, or abdominal pain. Denies numbness or tingling. Denies diarrhea or constipation. Denies dysuria, hematuria, or urgency. Oxygen saturation 94% on room air. No fevers. Past Medical History Past Medical History: Asthma, Chest Pain / Angina, Hyperlipidemia, Hypertension , Myocardial Infarction ([place]) Additional Past Medical History / Comment(s): BEGINNINGS OF CATARACTS([place]ARA), "IRREGULAR HEART BEAT". Last Myocardial Infarction Date:: 1997 History of Any Multi-Drug Resistant Organisms: None Reported Past Surgical History: Heart Catheterization, Orthopedic Surgery Additional Past Surgical History / Comment(s): B/L knee replacement Past Anesthesia/Blood Transfusion Reactions: No Reported Reaction Past Psychological History: No Psychological Hx Reported Smoking Status: Former smoker Past Alcohol Use History: Occasional Additional Past Alcohol Use History / Comment(s): TRIED SMOKING AT AGE 10 BUT REALLY STARTED AT AGE 12, QUIT 1986-WAS SMOKING 2.5-3 PPD Past Drug Use History: None Reported - Past Family History Father Family Medical History: Congestive Heart Failure (CHF), CVA/TIA, Hyperlipidemia , Hypertension Mother Additional Family Medical History / Comment(s): Epilepsy Medications and Allergies Home Medications Medication Instructions Recorded Confirmed Type Atorvastatin [Lipitor] 40 mg PO HS 05/07/14 01/06/17 History Furosemide [Lasix] 40 mg PO MOWEFR 05/07/14 01/06/17 History Metoprolol Succinate [Toprol XL] 25 mg PO DAILY 05/07/14 01/06/17 History Potassium Chloride [K-Tab] 10 meq PO BID 05/07/14 01/06/17 History Aspirin EC [Ecotrin] 325 mg PO BID 10/09/16 01/06/17 History Isosorbide Mononitrate ER [Imdur] 30 mg PO DAILY 10/09/16 01/06/17 History Omeprazole 40 mg PO DAILY 10/09/16 01/06/17 History Nitroglycerin Sl Tabs [Nitrostat] 0.4 mg SUBLINGUAL Q5M PRN 10/10/16 01/06/17 History Albuterol Inhaler [Ventolin Hfa 1 - 2 puff INHALATION RT-Q6H PRN 01/06/17 History Inhaler] Fluticasone/Salmeterol [Advair 1 puff INHALATION RT-BID 01/06/17 01/06/17 History 250-50 Diskus] Furosemide [Lasix] 20 mg PO SUTUTHSA 01/06/17 01/06/17 History Allergies Allergy/AdvReac Type Severity Reaction Status Date / Time Iodinated Contrast Media - AdvReac Severe Decreased Verified 01/06/17 10:31 Oral and Blood Pressure codeine AdvReac Nausea & Verified 01/06/17 10:31 Vomiting Physical Exam Vitals: Vital Signs Temp Pulse Pulse Resp BP Pulse Ox 01/07/17 11:20 88 01/07/17 11:15 80 01/07/17 08:15 84 01/07/17 08:09 80 95 01/07/17 07:00 97.3 F L 74 18 140/73 95 01/06/17 23:00 97.9 F 99 20 130/68 95 01/06/17 20:24 88 01/06/17 20:13 88 01/06/17 15:57 84 01/06/17 15:48 80 01/06/17 15:25 97.1 F L 94 20 139/65 97 Intake and Output 01/07/17 01/07/17 01/07/17 06:59 14:59 22:59 Other: # Voids 1 1 Weight 126.099 kg Patient Weight 01/08/17 06:59 Weight 126.099 kg GENERAL: Pt awake and alert, well-appearing, well-nourished, and in no acute distress. HEAD: Atraumatic, normocephalic. EYES: Pupils equal, round, sclera anicteric, conjunctiva are normal. ENT:Moist mucous membranes. NECK:Supple without lymphadenopathy or JVD. LUNGS: Breath sounds diminished to auscultation bilaterally. HEART: Heart S1, S2, no S3 or S4. Regular rate and rhythm. No murmurs, rubs or gallops. ABDOMEN: Soft, obese, nontender, nondistended, normoactive bowel sounds. No guarding, no rebound. EXTREMITIES: 2+ peripheral pulses. No edema. No calf tenderness. NEUROLOGICAL: Pt oriented x 3. Cranial nerves II through XII grossly intact. Strength and sensation grossly intact. PSYCH: Normal mood, normal affect. SKIN: Warm, dry, intact. Normal turgor. No rashes or lesions. Results CBC & Chem 7: 01/06/17 11:27 01/06/17 11:27 Labs: Abnormal Lab Results - Last 24 Hours (Table) 01/06/17 01/06/17 01/07/17 Range/Units 17:22 20:59 06:59 POC Glucose (mg/dL) 185 H 245 H 187 H (75-99) mg/dL 01/07/17 Range/Units 12:30 POC Glucose (mg/dL) 158 H (75-99) mg/dL Microbiology - Last 24 Hours (Table) 01/06/17 11:27 Blood Culture - Preliminary Blood No Growth after 24 hours Chest x-ray: report reviewed Thrombosis Risk Factor Assmnt - DVT/VTE Prophylaxis DVT/VTE Prophylaxis: Pharmacologic Prophylaxis ordered - Choose All That Apply Any of the Below Risk Factors Present?: Yes Each Factor Represents 1 point: Abnormal pulmonary function (COPD), Age 41-60 years, Obesity (BMI >25) Other Risk Factors: No Other congenital or acquired thrombophilia - If yes, enter type in comment: No Thrombosis Risk Factor Assessment Total Risk Factor Score: 3 Thrombosis Risk Factor Assessment Level: Moderate Risk Assessment and Plan Plan: Impression and plan: 1. Exacerbation of COPD. Continue antibiotics, steroids, nebulized updraft treatments, supplemental oxygen to keep oxygen saturation greater than 92. Pulmonary consult in place, recommendations pending. 2. History of asthma, severity unknown. 3. Hyperlipidemia. 4. Hypertension. 5. Coronary artery disease with history of myocardial infarction. 6. History of bilateral cataracts. 7. History of nicotine dependence. 8. Morbid obesity. BMI 50.8. Continue to monitor patient. Home medications been reviewed and resumed. Continue GI and DVT prophylaxis. Continue to follow the pulmonary service. Repeat CBC and BMP in a.m. The above impression and plan have been discussed and directed by Dr. Live. Gamaliel POLK acting as scribe for Dr. Live.
--- NOTE | 2017-01-07 15:59 | P.CNPUL ---
History of Present Illness Consult date: 01/07/17 Reason for consult: dyspnea History of present illness: 56-year-old female patient, history of bronchial asthma and multiple environmental ALLERGIES maintained on a combination of Advair and Proventil rescue inhaler, morbidly obese, also known history of coronary artery disease and the patient has had a remote myocardial infarction back in 1986, coming in for increased shortness of breath. Apparently the patient was in a good state of health until approximately 3 days ago she got exposed to pollen emanating from grass exposure. She noted that with this exposure she became progressively short of breath bronchospastic and wheezy. She had no angina. She came into the hospital with a chest x-ray was done and the chest x-ray showed evidence of any pneumonia. The patient was admitted for acute asthma exacerbation. She reports to be compliant on Advair. No pleurisy. No hemoptysis. No angina. No swelling lower extremities. No pressors hospital physician for asthma activity. She is an ex-smoker and she quit smoking back in 1986. No nausea. No vomiting no change in mental status. No other complaints otherwise. Review of Systems All systems: negative Constitutional: Denies chills, Denies fever Eyes: denies blurred vision, denies pain Ears, nose, mouth and throat: Denies headache, Denies sore throat Cardiovascular: Denies chest pain, Denies shortness of breath Respiratory: Reports cough, Reports dyspnea, Reports wheezing Gastrointestinal: Denies abdominal pain, Denies diarrhea, Denies nausea, Denies vomiting Genitourinary: Denies dysuria, Denies hematuria Musculoskeletal: Denies myalgias Integumentary: Denies pruritus, Denies rash Neurological: Denies numbness, Denies weakness Psychiatric: Denies anxiety, Denies depression Endocrine: Denies fatigue, Denies weight change Past Medical History Past Medical History: Asthma, Chest Pain / Angina, Hyperlipidemia, Hypertension , Myocardial Infarction ([place]) Additional Past Medical History / Comment(s): Asthma, hyperlipidemia, hypertension, coronary artery disease, bilateral cataracts, morbid obesity Last Myocardial Infarction Date:: 1997 History of Any Multi-Drug Resistant Organisms: None Reported Past Surgical History: Heart Catheterization, Orthopedic Surgery Additional Past Surgical History / Comment(s): B/L knee replacement Past Anesthesia/Blood Transfusion Reactions: No Reported Reaction Past Psychological History: No Psychological Hx Reported Smoking Status: Former smoker Past Alcohol Use History: Occasional Additional Past Alcohol Use History / Comment(s): TRIED SMOKING AT AGE 10 BUT REALLY STARTED AT AGE 12, QUIT 1986-WAS SMOKING 2.5-3 PPD Past Drug Use History: None Reported - Past Family History Father Family Medical History: Congestive Heart Failure (CHF), CVA/TIA, Hyperlipidemia , Hypertension Mother Additional Family Medical History / Comment(s): Epilepsy Medications and Allergies Home Medications Medication Instructions Recorded Confirmed Type Atorvastatin [Lipitor] 40 mg PO HS 05/07/14 01/06/17 History Furosemide [Lasix] 40 mg PO MOWEFR 05/07/14 01/06/17 History Metoprolol Succinate [Toprol XL] 25 mg PO DAILY 05/07/14 01/06/17 History Potassium Chloride [K-Tab] 10 meq PO BID 05/07/14 01/06/17 History Aspirin EC [Ecotrin] 325 mg PO BID 10/09/16 01/06/17 History Isosorbide Mononitrate ER [Imdur] 30 mg PO DAILY 10/09/16 01/06/17 History Omeprazole 40 mg PO DAILY 10/09/16 01/06/17 History Nitroglycerin Sl Tabs [Nitrostat] 0.4 mg SUBLINGUAL Q5M PRN 10/10/16 01/06/17 History Albuterol Inhaler [Ventolin Hfa 1 - 2 puff INHALATION RT-Q6H PRN 01/06/17 History Inhaler] Fluticasone/Salmeterol [Advair 1 puff INHALATION RT-BID 01/06/17 01/06/17 History 250-50 Diskus] Furosemide [Lasix] 20 mg PO SUTUTHSA 01/06/17 01/06/17 History Allergies Allergy/AdvReac Type Severity Reaction Status Date / Time Iodinated Contrast Media - AdvReac Severe Decreased Verified 01/06/17 10:31 Oral and Blood Pressure codeine AdvReac Nausea & Verified 01/06/17 10:31 Vomiting Physical Exam Vitals: Vital Signs Temp Pulse Pulse Resp BP Pulse Ox 01/07/17 15:00 98.1 F 55 L 19 108/51 93 L 01/07/17 11:20 88 01/07/17 11:15 80 01/07/17 08:15 84 01/07/17 08:09 80 95 01/07/17 07:00 97.3 F L 74 18 140/73 95 01/06/17 23:00 97.9 F 99 20 130/68 95 01/06/17 20:24 88 01/06/17 20:13 88 01/06/17 15:57 84 Intake and Output 01/07/17 01/07/17 01/07/17 06:59 14:59 22:59 Other: # Voids 1 1 Weight 126.099 kg Patient Weight 01/08/17 06:59 Weight 126.099 kg Head exam was generally normal. There was no scleral icterus or corneal arcus. Mucous membranes were moist.Neck was supple and without jugular venous distension, thyromegaly, or carotid bruits. Carotids were easily palpable bilaterally. There was no adenopathy. Patient has significant crowding of the posterior pharynx. There is no goiter or neck masses. Lungs sounds are diminished bilaterally and the patient has few scattered external wheezes heard throughout the lung sherman and prolongation of respiratory phase of breathing.Cardiac exam revealed the PMI to be normally situated and sized. The rhythm was regular and no extrasystoles were noted during several minutes of auscultation. The first and second heart sounds were normal and physiologic splitting of the second heart sound was noted. There were no murmurs, rubs, clicks, or gallops.Abdominal exam revealed normal bowel sounds. The abdomen was soft, non-tender, and without masses, organomegaly, or appreciable enlargement of the abdominal aorta. The patient's BE ACCURATELY PALPATED DUE TO OBESITY.Examination of the extremities revealed easily palpable radial, femoral and pedal pulses. There was no cyanosis, clubbing or edema. Results - Laboratory Findings CBC and BMP: 01/06/17 11:27 01/06/17 11:27 PT/INR, D-dimer PT 10.6 sec (9.0-12.0) 01/06/17 11:27 INR 1.0 (<1.1) 01/06/17 11:27 Abnormal lab findings: Abnormal Labs 01/06/17 01/06/17 01/06/17 11:27 11:27 11:27 WBC 11.9 H Neutrophils # 9.2 H Glucose 106 H POC Glucose (mg/dL) Alkaline Phosphatase 169 H Total Creatine Kinase 27 L 01/06/17 01/06/17 01/07/17 17:22 20:59 06:59 WBC Neutrophils # Glucose POC Glucose (mg/dL) 185 H 245 H 187 H Alkaline Phosphatase Total Creatine Kinase 01/07/17 12:30 WBC Neutrophils # Glucose POC Glucose (mg/dL) 158 H Alkaline Phosphatase Total Creatine Kinase - Diagnostic Findings Chest x-ray: image reviewed Assessment and Plan Plan: Assessment 1 chronic bronchial asthma in acute exacerbation, likely secondary to ALLERGY exposure. No evidence of an acute bronchitis or pneumonia 2 COPD, likely based on history of [id number] smoking 3 morbid obesity 4 coronary artery disease with a remote history of myocardial infarction back in 1986 5 multiple environmental ALLERGIES 6 hypertension 7 hyperlipidemia Plan Agree on the current treatment. I spent recovered within next 24-48 hours. The patient is on IV Solu-Medrol which will be moved to prednisone burst taper within next 24-48 hours. Continue Advair on outpatient basis. Proventil rescue inhaler when necessary. We'll continue to follow.
[2017-01-07 17:06] LABS: Glucose,Whole Blood 214 mg/dL (75-99)
[2017-01-07 21:02] LABS: Glucose,Whole Blood 282 mg/dL (75-99)
[2017-01-07] MEDS: ATORVASTATIN 40 MG TAB PO SCH (21:44)
[2017-01-07] MEDS ORDERED: INSULIN LISPRO (humaLOG) 300 UNIT/3 ML VIAL SQ ONE (21:49)
[2017-01-07] MEDS: ZOLPIDEM 5 MG TAB PO PRN (22:59)
[2017-01-08] MEDS: methylPREDNISolone SOD SUCCI 125 MG/2 ML VIAL IV SCH ×4 (06:06→23:27)
[2017-01-08 07:39] LABS: Glucose,Whole Blood 136 mg/dL (75-99)
[2017-01-08] MEDS: INSULIN LISPRO (humaLOG) 300 UNIT/3 ML VIAL SQ SCH ×4 (07:43→21:14)
[2017-01-08] MEDS: ASPIRIN 325 MG TAB PO SCH ×2 (07:43→20:33)
[2017-01-08] MEDS: AZITHROMYCIN 500 MG TAB PO SCH (07:43)
[2017-01-08] MEDS: FUROSEMIDE 20 MG TAB PO SCH (07:43)
[2017-01-08] MEDS: PANTOPRAZOLE 40 MG TABLET PO SCH (07:43)
[2017-01-08] MEDS: ISOSORBIDE MONONITRATE ER 30 MG TAB.ER.24H PO SCH (07:43)
[2017-01-08] MEDS: POTASSIUM CHLORIDE ER 10 MEQ TAB.ER.PRT PO SCH ×2 (07:43→20:33)
[2017-01-08] MEDS: ENOXAPARIN 40 MG/0.4 ML SYRINGE SQ SCH (07:44)
[2017-01-08] MEDS: METOPROLOL SUCCINATE (ER) 25 MG TAB.ER.24H PO SCH (07:52)
[2017-01-08 10:53] LABS: Basophils % (A) 0 %; CH 29.2; CHCM 32.4; Eosinophils % (A) 0 %; HCT 40.6 % (34.0-46.0); HDW 2.46; HGB 13.2 gm/dL (11.4-16.0); Luc # (Auto) 0.09; Luc % (Auto) 1; Lymphocytes # (A) 0.8 k/uL (1.0-4.8); Lymphocytes % (A) 4 %; MCH 29.6 pg (25.0-35.0); MCHC 32.6 g/dL (31.0-37.0); MCV 90.8 fL (80.0-100.0); Mean Platelet Volume 7.3; Monocytes # (A) 0.6 k/uL (0-1.0); Monocytes % (A) 3 %; Neutrophils # (A) 16.5 k/uL (1.3-7.7); Neutrophils % (A) 92 %; RBC 4.47 m/uL (3.80-5.40); RDW 14.1 % (11.5-15.5); WBC 17.9 k/uL (3.8-10.6); WBC (Perox) 18.53
[2017-01-08 11:28] LABS: Anion Gap 10 mmol/L; Blood Urea Nitrogen 16 mg/dL (7-17); Calcium 9.4 mg/dL (8.4-10.2); Carbon Dioxide 26 mmol/L (22-30); Chloride 104 mmol/L (98-107); Glucose 149 mg/dL (74-99); Non-African American GFR(MDRD) >60 (>60 ml/min/1.73 sqM); Potassium 4.5 mmol/L (3.5-5.1); Sodium 140 mmol/L (137-145)
[2017-01-08] MEDS: IPRATROPIUM-ALBUTEROL 3 ML NEB INHALATION SCH ×4 (11:31→20:05)
[2017-01-08 12:31] LABS: Glucose,Whole Blood 126 mg/dL (75-99)
[2017-01-08] MEDS: SODIUM CHLORIDE 0.9% 1,000 ML IV SCH (14:51)
[2017-01-08] MEDS ORDERED: FUROSEMIDE 10 MG/ML 4 ML VIAL IV STA (14:57)
--- NOTE | 2017-01-08 14:57 | P.PN ---
Subjective 56-year-old female patient, history of bronchial asthma and multiple environmental ALLERGIES maintained on a combination of Advair and Proventil rescue inhaler, morbidly obese, also known history of coronary artery disease and the patient has had a remote myocardial infarction back in 1986, coming in for increased shortness of breath. Apparently the patient was in a good state of health until approximately 3 days ago she got exposed to pollen emanating from grass exposure. She noted that with this exposure she became progressively short of breath bronchospastic and wheezy. She had no angina. She came into the hospital with a chest x-ray was done and the chest x-ray showed evidence of any pneumonia. The patient was admitted for acute asthma exacerbation. She reports to be compliant on Advair. No pleurisy. No hemoptysis. No angina. No swelling lower extremities. No pressors hospital physician for asthma activity. She is an ex-smoker and she quit smoking back in 1986. No nausea. No vomiting no change in mental status. No other complaints otherwise. On 01/08/2017, the patient is showing only limited improvement in her shortness of breath. She still bronchus spastic and wheezy and she will need an additional 2 days for recovery. Meanwhile, she is also complaining of some increased fluid retention. No fever. No chills. No chest pain. No other complaints otherwise. Objective - Vital Signs Vital signs: Vital Signs Temp 97.4 F L 01/08/17 07:00 Pulse 76 01/08/17 11:43 Resp 20 01/08/17 07:00 BP 111/87 01/08/17 07:00 Pulse Ox 94 L 01/08/17 07:00 Intake & Output 01/07/17 01/08/17 01/08/17 18:59 06:59 18:59 Intake Total 790 480 Balance 790 480 Weight 126.099 kg Intake: Oral 790 480 Other: Voiding Method Toilet Toilet # Voids 1 1 3 - Exam Head exam was generally normal. There was no scleral icterus or corneal arcus. Mucous membranes were moist.Neck was supple and without jugular venous distension, thyromegaly, or carotid bruits. Carotids were easily palpable bilaterally. There was no adenopathy. Patient has significant crowding of the posterior pharynx. There is no goiter or neck masses. Lungs sounds are diminished bilaterally and the patient has few scattered external wheezes heard throughout the lung sherman and prolongation of respiratory phase of breathing.Cardiac exam revealed the PMI to be normally situated and sized. The rhythm was regular and no extrasystoles were noted during several minutes of auscultation. The first and second heart sounds were normal and physiologic splitting of the second heart sound was noted. There were no murmurs, rubs, clicks, or gallops.Abdominal exam revealed normal bowel sounds. The abdomen was soft, non-tender, and without masses, organomegaly, or appreciable enlargement of the abdominal aorta. The patient's BE ACCURATELY PALPATED DUE TO OBESITY.Examination of the extremities revealed easily palpable radial, femoral and pedal pulses. There was no cyanosis, clubbing or edema. - Labs CBC & Chem 7: 01/08/17 10:22 01/08/17 10:22 Labs: Abnormal Lab Results - Last 24 Hours (Table) 01/07/17 01/07/17 01/08/17 Range/Units 17:04 21:01 07:13 WBC (3.8-10.6) k/uL Neutrophils # (1.3-7.7) k/uL Lymphocytes # (1.0-4.8) k/uL Glucose (74-99) mg/dL POC Glucose (mg/dL) 214 H 282 H 136 H (75-99) mg/dL 01/08/17 01/08/17 01/08/17 Range/Units 10:22 10:22 12:25 WBC 17.9 H (3.8-10.6) k/uL Neutrophils # 16.5 H (1.3-7.7) k/uL Lymphocytes # 0.8 L (1.0-4.8) k/uL Glucose 149 H (74-99) mg/dL POC Glucose (mg/dL) 126 H (75-99) mg/dL Microbiology - Last 24 Hours (Table) 01/06/17 11:27 Blood Culture - Preliminary Blood No Growth after 48 hours Assessment and Plan Plan: Assessment 1 chronic bronchial asthma in acute exacerbation, likely secondary to ALLERGY exposure. No evidence of an acute bronchitis or pneumonia 2 COPD, likely based on history of [id number] smoking 3 morbid obesity 4 coronary artery disease with a remote history of myocardial infarction back in 1986 5 multiple environmental ALLERGIES 6 hypertension 7 hyperlipidemia Plan Continue same treatment. Give the patient does of 4 g of IV Lasix. Kept on the salt intake. We'll continue to follow.
[2017-01-08 17:15] LABS: Glucose,Whole Blood 308 mg/dL (75-99)
[2017-01-08] MEDS ORDERED: INSULIN LISPRO (humaLOG) 300 UNIT/3 ML VIAL SQ ONE (17:36)
--- NOTE | 2017-01-08 18:18 | PN ---
DATE OF SERVICE: 01/08/2017 INTERVAL HISTORY: Ms. Blue is a 56-year-old female who follows with Dr. Osbaldo Live in the outpatient setting with a past medical history of asthma, COPD, hypertension, hyperlipidemia, coronary artery disease, [place], bilateral cataracts, admitted to the hospital with the chief complaint of difficulty in breathing with cough and congestion. Patient also reports some increased sputum. Chest x-ray shows evidence of COPD, and she is currently being treated for COPD exacerbation with antibiotics and steroids. Patient states that she is feeling much better compared to when she came in. Her breathing is much better. REVIEW OF SYSTEMS: CONSTITUTIONAL: Denies having any fever, chills or rigors. RESPIRATORY: Difficulty in breathing is better. No cough. CHEST: Denies having any palpitations or chest pain. GI: No abdominal pain, nausea, vomiting or diarrhea. : No dysuria or hematuria. Patient's medications have been reviewed. On examination, patient's vital signs are temperature 97.4, heart rate 73, respiratory rate 20, blood pressure 111/87. Saturating at 94% on room air. GENERAL EXAMINATION: Patient appears to be no acute distress. HEAD: Atraumatic, normocephalic. EYES: Pupils round and reactive to light. NECK: No JVD. No thyromegaly. CARDIAC: S1, S2 heard. LUNGS: Bilateral breath sounds are positive; slightly diminished in the lower lung sherman. No active wheezes. A few rhonchi in all lung sherman. ABDOMEN: Soft, obese, nontender, nondistended. Active bowel sounds. No guarding or rigidity. EXTREMITIES: Two plus pulses felt. No edema. No cyanosis. No calf tenderness. SUPER[employer]OR [employer]: Alert, awake, oriented x3. No focal neurological deficits. PSYCHIATRIC: Appropriate mood and affect. SKIN: No rash. PATIENT'S LABS: White count of 17.9, hemoglobin 13.2, platelets of 300. Sodium 140, potassium 4.5, chloride 105, bicarb 26. BUN 16, creatinine 0.62. Chest x-ray showing underlying COPD. ASSESSMENT AND PLAN: 1. Acute exacerbation of chronic obstructive pulmonary disease, most likely secondary to acute tracheobronchitis. Patient is started on azithromycin, IV steroids and breathing treatments. 2. History of hypertension. 3. Hyperlipidemia. 4. Coronary artery disease with history of myocardial infarction. 5. History of bilateral cataracts. 6. History of nicotine dependence in the past. 7. Morbid obesity with body mass index of 50.8. PLAN: The plan is to continue the patient on antibiotics, and her IV steroids will be changed to p.o. steroids from tomorrow. Continue with GI, DVT prophylaxis and resume her home medications. Further recommendations to follow depending on the progress of the patient.
[2017-01-08] MEDS: ATORVASTATIN 40 MG TAB PO SCH (20:33)
[2017-01-08 21:06] LABS: Glucose,Whole Blood 282 mg/dL (75-99)
[2017-01-08] MEDS: ZOLPIDEM 5 MG TAB PO PRN (22:10)
[2017-01-09 07:33] LABS: Glucose,Whole Blood 149 mg/dL (75-99)
[2017-01-09] MEDS: INSULIN LISPRO (humaLOG) 300 UNIT/3 ML VIAL SQ SCH ×4 (07:59→21:14)
[2017-01-09] MEDS: POTASSIUM CHLORIDE ER 10 MEQ TAB.ER.PRT PO SCH ×2 (08:07→21:14)
[2017-01-09] MEDS: predniSONE 20 MG TAB PO SCH (08:07)
[2017-01-09] MEDS: ASPIRIN 325 MG TAB PO SCH ×2 (08:08→21:14)
[2017-01-09] MEDS: FUROSEMIDE 20 MG TAB PO SCH (08:08)
[2017-01-09] MEDS: PANTOPRAZOLE 40 MG TABLET PO SCH (08:08)
[2017-01-09] MEDS: AZITHROMYCIN 500 MG TAB PO SCH (08:08)
[2017-01-09] MEDS: ENOXAPARIN 40 MG/0.4 ML SYRINGE SQ SCH (08:09)
[2017-01-09] MEDS: METOPROLOL SUCCINATE (ER) 25 MG TAB.ER.24H PO SCH (08:15)
[2017-01-09] MEDS: ISOSORBIDE MONONITRATE ER 30 MG TAB.ER.24H PO SCH (08:15)
[2017-01-09] MEDS: IPRATROPIUM-ALBUTEROL 3 ML NEB INHALATION SCH ×4 (08:58→20:58)
[2017-01-09 12:16] LABS: Glucose,Whole Blood 205 mg/dL (75-99)
--- NOTE | 2017-01-09 14:35 | P.PN ---
Subjective 56-year-old female patient, history of bronchial asthma and multiple environmental ALLERGIES maintained on a combination of Advair and Proventil rescue inhaler, morbidly obese, also known history of coronary artery disease and the patient has had a remote myocardial infarction back in 1986, coming in for increased shortness of breath. Apparently the patient was in a good state of health until approximately 3 days ago she got exposed to pollen emanating from grass exposure. She noted that with this exposure she became progressively short of breath bronchospastic and wheezy. She had no angina. She came into the hospital with a chest x-ray was done and the chest x-ray showed evidence of any pneumonia. The patient was admitted for acute asthma exacerbation. She reports to be compliant on Advair. No pleurisy. No hemoptysis. No angina. No swelling lower extremities. No pressors hospital physician for asthma activity. She is an ex-smoker and she quit smoking back in 1986. No nausea. No vomiting no change in mental status. No other complaints otherwise. On 01/08/2017, the patient is showing only limited improvement in her shortness of breath. She still bronchus spastic and wheezy and she will need an additional 2 days for recovery. Meanwhile, she is also complaining of some increased fluid retention. No fever. No chills. No chest pain. No other complaints otherwise. On 01/09/2017 the patient is even better and she is less short of breath and wheezy and the bronchospasm and wheezing is essentially recovered. No new complaints otherwise for now. She is on a prednisone burst taper starting with 60 mg by mouth daily. She was also seen by cardiology. Objective - Vital Signs Vital signs: Vital Signs Temp 96.7 F L 01/09/17 07:00 Pulse 80 01/09/17 12:50 Resp 20 01/09/17 08:05 BP 130/65 01/09/17 07:00 Pulse Ox 95 01/09/17 07:00 Intake & Output 01/08/17 01/09/17 01/09/17 18:59 06:59 18:59 Intake Total 720 900 480 Balance 720 900 480 Intake: Oral 720 900 480 Other: Voiding Method Toilet Toilet # Voids 1 2 3 # Bowel Movements 1 - Exam Head exam was generally normal. There was no scleral icterus or corneal arcus. Mucous membranes were moist.Neck was supple and without jugular venous distension, thyromegaly, or carotid bruits. Carotids were easily palpable bilaterally. There was no adenopathy. Patient has significant crowding of the posterior pharynx. There is no goiter or neck masses. Lungs sounds are diminished yet they're clear.Cardiac exam revealed the PMI to be normally situated and sized. The rhythm was regular and no extrasystoles were noted during several minutes of auscultation. The first and second heart sounds were normal and physiologic splitting of the second heart sound was noted. There were no murmurs, rubs, clicks, or gallops.Abdominal exam revealed normal bowel sounds. The abdomen was soft, non-tender, and without masses, organomegaly, or appreciable enlargement of the abdominal aorta. The patient's BE ACCURATELY PALPATED DUE TO OBESITY.Examination of the extremities revealed easily palpable radial, femoral and pedal pulses. There was no cyanosis, clubbing or edema. - Labs CBC & Chem 7: 01/08/17 10:22 01/08/17 10:22 Labs: Abnormal Lab Results - Last 24 Hours (Table) 01/08/17 01/08/17 01/09/17 Range/Units 17:10 21:00 07:09 POC Glucose (mg/dL) 308 H 282 H 149 H (75-99) mg/dL 01/09/17 Range/Units 12:13 POC Glucose (mg/dL) 205 H (75-99) mg/dL Microbiology - Last 24 Hours (Table) 01/06/17 11:27 Blood Culture - Preliminary Blood No Growth after 72 hours Assessment and Plan Plan: Assessment 1 chronic bronchial asthma in acute exacerbation, likely secondary to ALLERGY exposure, recovering 2 COPD, likely based on history of [id number] smoking 3 morbid obesity 4 coronary artery disease with a remote history of myocardial infarction back in 1986 5 multiple environmental ALLERGIES 6 hypertension 7 hyperlipidemia Plan Continue same treatment. Continue the prednisone burst taper. Discharge planning is in progress.
[2017-01-09] MEDS: SODIUM CHLORIDE 0.9% 1,000 ML IV SCH (16:14)
[2017-01-09 17:13] LABS: Glucose,Whole Blood 182 mg/dL (75-99)
--- NOTE | 2017-01-09 17:15 | PN ---
DATE OF SERVICE: 01/09/2017 INTERVAL HISTORY: Ms. Blue is a 56-year-old female who follows with Dr. Osbaldo Live in outpatient setting with past medical history of asthma, COPD, hypertension, hyperlipidemia, CAD , [place] admitted to the hospital with chief complaint of difficulty breathing. Patient is currently being treated for COPD exacerbation with IV antibiotics, steroids and breathing treatments. Patient is doing much better compared to when she came in. No active complaints overnight. REVIEW OF SYSTEMS: CONSTITUTIONAL: Denies having any fevers, chills or rigors. RESPIRATORY: Difficulty in breathing is better. No cough. Chest: No palpitations or chest pain. GI: No abdominal pain, nausea, vomiting, or diarrhea. : No dysuria or hematuria. Patient's medications have been reviewed. On examination, patient's vital signs temperature 97.6, heart rate 93, respiratory rate 20, blood pressure 110/60, saturating at 94% on room air. GENERAL EXAMINATION: Obese, female, sitting up in her bed, appears to be no acute distress. HEAD: Atraumatic, normocephalic. EYES: Pupils, round, and reactive to light. NECK: No JVD. No thyromegaly. CARDIOVASCULAR: S1, S2 heard. LUNGS: Bilateral breath sounds are positive, slightly diminished at the lower lung sherman. No active wheezes. ABDOMEN: Soft, nontender. Bowel sounds are positive. EXTREMITIES: No edema. No cyanosis, no clubbing. WIRE COINER: Awake, alert and oriented x3. No focal neurological deficits. PSYCHIATRIC: Appropriate mood and affect. SKIN: No rash. The patient's labs: White count of 17.9, hemoglobin is 13.2, platelets of 300, sodium 140, potassium 4.5, chloride 104, bicarb 26, BUN 16, creatinine 0.62. These are the labs from yesterday. ASSESSMENT AND PLAN: 1. Acute exacerbation of chronic obstructive pulmonary disease, most likely secondary to acute tracheobronchitis, continue with azithromycin. IV steroids have been changed to p.o. prednisone today. Continue with breathing treatments. 2. History of hypertension. 3. Hyperlipidemia. 4. Coronary artery disease with history of myocardial infarction. 5. History of bilateral cataracts. 6. History of nicotine dependence in the past. 7. Morbid with body mass index 50.8. PLAN: Plan is to continue with the current medication regimen. She is being changed to p.o. steroids today. Most likely anticipate discharge in the next 24 to 48 hours. ALANIS
[2017-01-09 21:01] LABS: Glucose,Whole Blood 182 mg/dL (75-99)
[2017-01-09] MEDS: ATORVASTATIN 40 MG TAB PO SCH (21:14)
[2017-01-09] MEDS: ZOLPIDEM 5 MG TAB PO PRN (21:37)
[2017-01-10 06:57] LABS: Glucose,Whole Blood 95 mg/dL (75-99)
[2017-01-10] MEDS: IPRATROPIUM-ALBUTEROL 3 ML NEB INHALATION SCH ×2 (07:01→11:12)
[2017-01-10 07:39] VITALS: BP 124/78; RESP 19; TEMP 97.8
[2017-01-10] MEDS: INSULIN LISPRO (humaLOG) 300 UNIT/3 ML VIAL SQ SCH (07:53)
[2017-01-10] MEDS: ENOXAPARIN 40 MG/0.4 ML SYRINGE SQ SCH (07:54)
[2017-01-10] MEDS: METOPROLOL SUCCINATE (ER) 25 MG TAB.ER.24H PO SCH (07:55)
[2017-01-10] MEDS: predniSONE 20 MG TAB PO SCH (07:55)
[2017-01-10] MEDS: ISOSORBIDE MONONITRATE ER 30 MG TAB.ER.24H PO SCH (07:55)
[2017-01-10] MEDS: FUROSEMIDE 40 MG TAB PO SCH (07:55)
[2017-01-10] MEDS: PANTOPRAZOLE 40 MG TABLET PO SCH (07:56)
[2017-01-10] MEDS: AZITHROMYCIN 500 MG TAB PO SCH (07:56)
[2017-01-10] MEDS: ASPIRIN 325 MG TAB PO SCH (07:56)
[2017-01-10] MEDS: POTASSIUM CHLORIDE ER 10 MEQ TAB.ER.PRT PO SCH (07:56)
[2017-01-10 09:39] LABS: Anion Gap 11 mmol/L; Blood Urea Nitrogen 17 mg/dL (7-17); Calcium 9.1 mg/dL (8.4-10.2); Carbon Dioxide 25 mmol/L (22-30); Chloride 105 mmol/L (98-107); Glucose 144 mg/dL (74-99); Non-African American GFR(MDRD) >60 (>60 ml/min/1.73 sqM); Potassium 3.7 mmol/L (3.5-5.1); Sodium 141 mmol/L (137-145)
[2017-01-10 09:47] LABS: Basophils % (A) 0 %; CH 29.1; CHCM 31.7; Eosinophils # (A) 0.1 k/uL (0-0.7); Eosinophils % (A) 1 %; HCT 43.7 % (34.0-46.0); HDW 2.43; Luc # (Auto) 0.11; Luc % (Auto) 1; Lymphocytes # (A) 3.2 k/uL (1.0-4.8); Lymphocytes % (A) 35 %; MCH 29.5 pg (25.0-35.0); MCV 92.1 fL (80.0-100.0); Mean Platelet Volume 7.6; Monocytes # (A) 0.5 k/uL (0-1.0); Monocytes % (A) 5 %; Neutrophils # (A) 5.3 k/uL (1.3-7.7); Neutrophils % (A) 58 %; RBC 4.74 m/uL (3.80-5.40); WBC 9.2 k/uL (3.8-10.6); WBC (Perox) 9.39
[2017-01-10 11:20] LABS: Glucose,Whole Blood 187 mg/dL (75-99)
[2017-01-10 11:33] VITALS: PULSE 68
--- NOTE | 2017-01-10 12:35 | P.DS ---
Providers Date of admission: 01/06/17 14:05 Expected date of discharge: 01/10/17 Attending physician: Osbaldo Live Consults: 01/07/17 10:59 Consult Physician Urgent Consulting Provider: Lesa Chahal Consult Reason/Comments: COPD, PNEUMONIA Do you want consulting provider notified?: Yes Primary care physician: Osbaldo Live [facility] Course: Patient is a 56-year-old female, patient of Dr. Osbaldo Live in the outpatient setting, with past medical history significant for asthma, COPD, hypertension, hyperlipidemia, coronary artery disease, and myocardial infarction. Patient was admitted to the hospital with chief complaint of difficulty breathing. Patient was found to have evidence of COPD exacerbation and acute exacerbation of chronic bronchial asthma likely secondary to ALLERGY exposure. Patient was evaluated by Dr. Chahal from pulmonary service. Patient improved significantly with antibiotics, bronchodilators, steroids, and supplemental oxygen. Patient was deemed stable for discharge to home with follow-up in the outpatient setting. Discharge diagnoses: 1. Chronic bronchial asthma in acute exacerbation, likely secondary to ALLERGY exposure, recovering. 2. Acute exacerbation of COPD. 3. Morbid obesity. 4. Coronary artery disease with remote history of myocardial infarction back in 1986. 5. Multiple environmental ALLERGIES. 6. Hypertension. 7. Hyperlipidemia. The above impression and plan have been discussed and directed by Dr. Live. Gamaliel POLK acting as scribe for Dr. Live. Pertinent Studies: EKG; chest x-ray Patient Condition at Discharge: Good Plan - Discharge Summary New Discharge Prescriptions: Azithromycin [Zithromax] 500 mg PO DAILY #2 tab Ipratropium-Albuterol Nebulize [Duoneb 0.5 mg-3 mg/3 ml Soln] 3 ml INHALATION RT -QID PRN #30 neb PRN Reason: Shortness Of Breath predniSONE 0 mg PO DIRECTED #30 tab Discharge Medication List Atorvastatin [Lipitor] 40 mg PO HS 05/07/14 [History] Furosemide [Lasix] 40 mg PO MOWEFR 05/07/14 [History] Metoprolol Succinate [Toprol XL] 25 mg PO DAILY 05/07/14 [History] Potassium Chloride [K-Tab ER] 10 meq PO BID 05/07/14 [History] Aspirin EC [Ecotrin] 325 mg PO BID 10/09/16 [History] Isosorbide Mononitrate ER [Imdur] 30 mg PO DAILY 10/09/16 [History] Omeprazole 40 mg PO DAILY 10/09/16 [History] Nitroglycerin Sl Tabs [Nitrostat] 0.4 mg SUBLINGUAL Q5M PRN 10/10/16 [History] Albuterol Inhaler [Ventolin Hfa Inhaler] 1 - 2 puff INHALATION RT-Q6H PRN [History] Fluticasone/Salmeterol [Advair 250-50 Diskus] 1 puff INHALATION RT-BID 01/06/17 [History] Furosemide [Lasix] 20 mg PO SUTUTHSA 01/06/17 [History] Azithromycin [Zithromax] 500 mg PO DAILY #2 tab 01/10/17 [Rx] Ipratropium-Albuterol Nebulize [Duoneb 0.5 mg-3 mg/3 ml Soln] 3 ml INHALATION RT -QID PRN #30 neb 01/10/17 [Rx] predniSONE 0 mg PO DIRECTED #30 tab 01/10/17 [Rx] Follow up Appointment(s)/Referral(s): Osbaldo Live DO [Primary Care Provider] - 01/13/17 10:30 am Lesa Chahal MD [STAFF PHYSICIAN] - 02/02/17 10:00 am (This is soonest available per Jeffrey at office) [facility] Visiting Nurse, [NON-STAFF] - Patient Instructions/Handouts: COPD (Chronic Obstructive Pulmonary Disease) (DC ), Asthma (DC) Activity/Diet/Wound Care/Special Instructions: Cardiac diet Discharge Disposition: HOME WITH HOME HEALTH SERVICES
== END 2017-01-10 12:11 | disposition home health service (06) | DRG 191 ==
LOC: EC 10:13 → 4MS4W 14:05
PROVIDERS: ADMIT Family Medicine; ATTEND Family Medicine
DX: J44.1 Chronic obstructive pulmonary disease with (acute) exacerbation (principal); J45.901 Unspecified asthma with (acute) exacerbation; I10 Essential (primary) hypertension; Z68.43 Body mass index [BMI] 50.0-59.9, adult; E66.01 Morbid (severe) obesity due to excess calories; I25.10 Atherosclerotic heart disease of native coronary artery without angina pectoris; I25.2 Old myocardial infarction; E78.5 Hyperlipidemia, unspecified; H26.9 Unspecified cataract; Z87.891 Personal history of nicotine dependence; Z91.041 Radiographic dye allergy status; Z88.5 Allergy status to narcotic agent; Z96.652 Presence of left artificial knee joint; Z79.82 Long term (current) use of aspirin; Z79.51 Long term (current) use of inhaled steroids; Z79.899 Other long term (current) drug therapy
CPT/HCPCS: 36415; 71020; 80048; 80053; 82550; 82553; 83036; 83735; 83880; 84484; 85025; 85610; 85730; 87040; 93005; 94640; 94760; 96361; 96365; 96375; 99285

== ENCOUNTER 2017-05-17 22:24 | Emergency (ER) | payer MEDICARE ==
[2017-05-17] MEDS ORDERED: methylPREDNISolone SOD SUCCI 125 MG/2 ML VIAL IV STA (22:54)
[2017-05-17] MEDS ORDERED: ALBUTEROL NEBULIZED 2.5 MG/3 ML INHALATION STA (22:54)
[2017-05-17] MEDS ORDERED: IPRATROPIUM 0.5 MG/2.5 ML NEBU INHALATION STA (22:54)
--- NOTE | 2017-05-17 23:00 | ED ---
General Adult HPI - General Chief complaint: Shortness of Breath Stated complaint: NADIA HX: COPD Time Seen by Provider: 05/17/17 22:46 Source: patient, RN notes reviewed Mode of arrival: ambulatory Limitations: no limitations - History of Present Illness Initial comments: 56-year-old female with history of COPD presents with a three-hour history of cough, difficulty breathing. Patient was exposed to some incense at a friend's house. This triggered a coughing spell and difficulty breathing. She does report some anterior chest pain worse with coughing. She has had multiple admissions with COPD and pneumonia in the past. Denies fever or chills. Denies productive cough. Denies typical chest pain. Patient has been taking albuterol at home, she does this daily. Denies any recent steroids. Additional past medical history of CAD and obesity. Patient is a nonsmoker - Related Data Home Medications Medication Instructions Recorded Confirmed Atorvastatin [Lipitor] 40 mg PO HS 05/07/14 05/17/17 Metoprolol Succinate [Toprol XL] 25 mg PO DAILY 05/07/14 05/17/17 Potassium Chloride [K-Tab ER] 10 meq PO BID 05/07/14 05/17/17 Aspirin EC [Ecotrin] 325 mg PO BID 10/09/16 05/17/17 Isosorbide Mononitrate ER [Imdur] 30 mg PO DAILY 10/09/16 05/17/17 Omeprazole 40 mg PO DAILY 10/09/16 05/17/17 Nitroglycerin Sl Tabs [Nitrostat] 0.4 mg SUBLINGUAL Q5M PRN 10/10/16 05/17/17 Albuterol Inhaler [Ventolin Hfa 1 - 2 puff INHALATION RT-Q6H PRN 01/06/17 Inhaler] Fluticasone/Salmeterol [Advair 1 puff INHALATION RT-BID 01/06/17 05/17/17 250-50 Diskus] Furosemide [Lasix] 40 mg PO DAILY 05/17/17 05/17/17 Ipratropium-Albuterol Nebulize 3 ml INHALATION RT-TID 05/17/17 05/17/17 [Duoneb 0.5 mg-3 mg/3 ml Soln] Ranolazine [Ranexa] 500 mg PO HS 05/17/17 05/17/17 Previous Rx's Medication Instructions Recorded predniSONE 50 mg PO DAILY #5 tab 05/18/17 Allergies Allergy/AdvReac Type Severity Reaction Status Date / Time Iodinated Contrast- Oral and Allergy Unknown Anaphylaxis/Decreased Verified 23:03 IV Dye Blood [Iodinated Contrast Media - Pressure Oral and] codeine Allergy Rash/Nausea Verified 05/17/17 23:03 & Vomiting Review of Systems ROS Statement: Those systems with pertinent positive or pertinent negative responses have been documented in the HPI. ROS Other: All systems not noted in ROS Statement are negative. Past Medical History Past Medical History: Asthma, Chest Pain / Angina, COPD, Hyperlipidemia, Hypertension, Myocardial Infarction ([place]) Additional Past Medical History / Comment(s): Asthma, hyperlipidemia, hypertension, coronary artery disease, bilateral cataracts, morbid obesity Last Myocardial Infarction Date:: 1997 History of Any Multi-Drug Resistant Organisms: None Reported Past Surgical History: Heart Catheterization, Orthopedic Surgery Additional Past Surgical History / Comment(s): B/L knee replacement Past Anesthesia/Blood Transfusion Reactions: No Reported Reaction Past Psychological History: No Psychological Hx Reported Smoking Status: Former smoker Past Alcohol Use History: Occasional Past Drug Use History: None Reported - Past Family History Father Family Medical History: Congestive Heart Failure (CHF), CVA/TIA, Hyperlipidemia , Hypertension Mother Additional Family Medical History / Comment(s): Epilepsy General Exam Limitations: no limitations General appearance: alert, in no apparent distress Head exam: Present: atraumatic, normocephalic Eye exam: Present: normal appearance, PERRL ENT exam: Present: normal exam Respiratory exam: Present: normal lung sounds bilaterally, wheezes, prolonged expiratory. Absent: respiratory distress Cardiovascular Exam: Present: normal rhythm, tachycardia GI/Abdominal exam: Present: soft. Absent: distended, tenderness Extremities exam: Present: normal inspection, normal capillary refill. Absent: pedal edema Back exam: Present: normal inspection Neurological exam: Present: alert, oriented X3 Psychiatric exam: Present: normal affect, normal mood Skin exam: Present: warm, dry, intact. Absent: cyanosis, diaphoretic Course Vital Signs 05/17/17 05/17/17 05/17/17 22:42 23:03 23:10 Temperature 97.7 F Pulse Rate 106 H 99 95 Respiratory 22 20 Rate Blood Pressure 156/87 132/58 O2 Sat by Pulse 95 95 Oximetry 05/17/17 23:13 Temperature Pulse Rate 100 Respiratory Rate Blood Pressure O2 Sat by Pulse Oximetry EKG Findings - EKG Comments: EKG Findings:: EKG shows sinus rhythm with PVC, ventricular rate 93, AK interval 152, QRS duration 98, QTC 430 T-wave Abnormality in the precordial leads, this is unchanged compared to previous EKG Medical Decision Making - Medical Decision Making 56-year-old female presents with proximal spastic cough and expiratory wheezing after exposure to essential oil. Patient does have history of COPD and is very sensitive to these oils and smelling salts. Patient is given albuterol, and steroids in the emergency department. Her lungs do improve with treatment. She has increased air entry. Decreased wheezing Amer spastic cough. Patient remains 96% on room air. No respiratory distress. Chest x-ray shows no focal pneumonia, or pulmonary edema. Patient will be discharged home with short course of steroids. She has albuterol at home which she will take. She'll follow-up with her primary care physician. - Lab Data Result diagrams: 05/17/17 23:10 05/17/17 23:10 Lab Results 05/17/17 05/17/17 05/17/17 Range/Units 23:10 23:10 23:10 WBC 9.2 (3.8-10.6) k/uL RBC 5.06 (3.80-5.40) m/uL Hgb 14.5 (11.4-16.0) gm/dL Hct 45.5 (34.0-46.0) % MCV 90.1 (80.0-100.0) fL MCH 28.7 (25.0-35.0) pg MCHC 31.9 (31.0-37.0) g/dL RDW 15.0 (11.5-15.5) % Plt Count 259 (150-450) k/uL Neutrophils % 59 % Lymphocytes % 27 % Monocytes % 7 % Eosinophils % 4 % Basophils % 1 % Neutrophils # 5.4 (1.3-7.7) k/uL Lymphocytes # 2.5 (1.0-4.8) k/uL Monocytes # 0.7 (0-1.0) k/uL Eosinophils # 0.4 (0-0.7) k/uL Basophils # 0.1 (0-0.2) k/uL PT (9.0-12.0) sec INR (<1.2) APTT (22.0-30.0) sec Sodium 140 (137-145) mmol/L Potassium 3.5 (3.5-5.1) mmol/L Chloride 105 (98-107) mmol/L Carbon Dioxide 22 (22-30) mmol/L Anion Gap 13 mmol/L BUN 17 (7-17) mg/dL Creatinine 0.80 (0.52-1.04) mg/dL Est GFR (MDRD) Af Amer >60 (>60 ml/min/1.73 sqM) Est GFR (MDRD) Non-Af >60 (>60 ml/min/1.73 sqM) Glucose 138 H (74-99) mg/dL Calcium 9.4 (8.4-10.2) mg/dL Magnesium 2.2 (1.6-2.3) mg/dL Total Bilirubin 0.6 (0.2-1.3) mg/dL AST 26 (14-36) U/L ALT 38 (9-52) U/L Alkaline Phosphatase 142 H (38-126) U/L Total Creatine Kinase 39 (30-135) U/L CK-MB (CK-2) 0.5 (0.0-2.4) ng/mL CK-MB (CK-2) Rel Index 1.3 Troponin I <0.012 (0.000-0.034) ng/mL NT-Pro-B Natriuret Pep pg/mL Total Protein 6.9 (6.3-8.2) g/dL Albumin 4.1 (3.5-5.0) g/dL 05/17/17 05/17/17 Range/Units 23:10 23:10 WBC (3.8-10.6) k/uL RBC (3.80-5.40) m/uL Hgb (11.4-16.0) gm/dL Hct (34.0-46.0) % MCV (80.0-100.0) fL MCH (25.0-35.0) pg MCHC (31.0-37.0) g/dL RDW (11.5-15.5) % Plt Count (150-450) k/uL Neutrophils % % Lymphocytes % % Monocytes % % Eosinophils % % Basophils % % Neutrophils # (1.3-7.7) k/uL Lymphocytes # (1.0-4.8) k/uL Monocytes # (0-1.0) k/uL Eosinophils # (0-0.7) k/uL Basophils # (0-0.2) k/uL PT 10.5 (9.0-12.0) sec INR 1.0 (<1.2) APTT 23.8 (22.0-30.0) sec Sodium (137-145) mmol/L Potassium (3.5-5.1) mmol/L Chloride (98-107) mmol/L Carbon Dioxide (22-30) mmol/L Anion Gap mmol/L BUN (7-17) mg/dL Creatinine (0.52-1.04) mg/dL Est GFR (MDRD) Af Amer (>60 ml/min/1.73 sqM) Est GFR (MDRD) Non-Af (>60 ml/min/1.73 sqM) Glucose (74-99) mg/dL Calcium (8.4-10.2) mg/dL Magnesium (1.6-2.3) mg/dL Total Bilirubin (0.2-1.3) mg/dL AST (14-36) U/L ALT (9-52) U/L Alkaline Phosphatase (38-126) U/L Total Creatine Kinase (30-135) U/L CK-MB (CK-2) (0.0-2.4) ng/mL CK-MB (CK-2) Rel Index Troponin I (0.000-0.034) ng/mL NT-Pro-B Natriuret Pep 62 pg/mL Total Protein (6.3-8.2) g/dL Albumin (3.5-5.0) g/dL Disposition Clinical Impression: Acute exacerbation of chronic obstructive airways disease Disposition: HOME SELF-CARE Condition: Poor Instructions: COPD (Chronic Obstructive Pulmonary Disease) (ED) Prescriptions: predniSONE 50 mg PO DAILY #5 tab Referrals: Osbaldo Live DO [Primary Care Provider] - 1-2 days Time of Disposition: 00:17
[2017-05-17 23:24] LABS: Basophils # (A) 0.1 k/uL (0-0.2); Basophils % (A) 1 %; CH 29.6; Eosinophils # (A) 0.4 k/uL (0-0.7); Eosinophils % (A) 4 %; HCT 45.5 % (34.0-46.0); HDW 2.37; HGB 14.5 gm/dL (11.4-16.0); Luc # (Auto) 0.17; Luc % (Auto) 2; Lymphocytes # (A) 2.5 k/uL (1.0-4.8); Lymphocytes % (A) 27 %; MCH 28.7 pg (25.0-35.0); MCHC 31.9 g/dL (31.0-37.0); MCV 90.1 fL (80.0-100.0); Mean Platelet Volume 7.8; Monocytes # (A) 0.7 k/uL (0-1.0); Monocytes % (A) 7 %; Neutrophils # (A) 5.4 k/uL (1.3-7.7); Neutrophils % (A) 59 %; RBC 5.06 m/uL (3.80-5.40); WBC 9.2 k/uL (3.8-10.6); WBC (Perox) 9.48
[2017-05-17 23:34] LABS: Partial Thromboplastin Time 23.8 sec (22.0-30.0); Prothrombin Time 10.5 sec (9.0-12.0)
--- NOTE | 2017-05-17 23:46 | XR ---
EXAMINATION TYPE: XR chest 2V DATE OF EXAM: 05/17/2017 COMPARISON: NONE HISTORY: Difficulty breathing TECHNIQUE: Frontal and lateral views of the chest are obtained. FINDINGS: Heart is enlarged. There is no gross heart failure. There is no sign of pleural effusion. There are chest leads. Bony thorax appears intact. IMPRESSION: Cardiomegaly. No heart failure. There is clearing of subsegmental atelectasis to a large extent compared to old exam.
[2017-05-17 23:49] LABS: ALT 38 U/L (9-52); AST 26 U/L (14-36); Alkaline Phosphatase 142 U/L (38-126); Anion Gap 13 mmol/L; Blood Urea Nitrogen 17 mg/dL (7-17); Calcium 9.4 mg/dL (8.4-10.2); Carbon Dioxide 22 mmol/L (22-30); Chloride 105 mmol/L (98-107); Glucose 138 mg/dL (74-99); Magnesium 2.2 mg/dL (1.6-2.3); Non-African American GFR(MDRD) >60 (>60 ml/min/1.73 sqM); Potassium 3.5 mmol/L (3.5-5.1); Sodium 140 mmol/L (137-145); Total Bilirubin 0.6 mg/dL (0.2-1.3); Total Protein 6.9 g/dL (6.3-8.2)
[2017-05-17 23:50] LABS: Creatine Kinase 39 U/L (30-135)
[2017-05-18 00:02] LABS: Creatine Kinase MB 0.5 ng/mL (0.0-2.4); Troponin I <0.012 ng/mL (0.000-0.034)
[2017-05-18 00:29] VITALS: BP 129/65; PULSE 97; RESP 18; TEMP 97
== END 2017-05-18 00:29 | disposition home or self-care (01) ==
LOC: EC 22:24
DX: J44.1 Chronic obstructive pulmonary disease with (acute) exacerbation (principal); R07.89 Other chest pain; E78.5 Hyperlipidemia, unspecified; I10 Essential (primary) hypertension; I25.2 Old myocardial infarction; I25.10 Atherosclerotic heart disease of native coronary artery without angina pectoris; E66.01 Morbid (severe) obesity due to excess calories; Z68.43 Body mass index [BMI] 50.0-59.9, adult; Z87.891 Personal history of nicotine dependence; Z79.82 Long term (current) use of aspirin; Z79.51 Long term (current) use of inhaled steroids; Z79.899 Other long term (current) drug therapy; Z88.5 Allergy status to narcotic agent; Z91.041 Radiographic dye allergy status
CPT/HCPCS: 36415; 94640; 93005; 83880; 80053; 82550; 82553; 83735; 84484; 85025; 85610; 85730; 71020; 99285; 96374; J2930

== ENCOUNTER 2017-05-20 15:53 | Emergency (ER) | payer MEDICARE ==
[2017-05-20] MEDS ORDERED: ALBUTEROL NEBULIZED 7.5 MG, IPRATROPIUM NEBULIZED 0.5 MG, SODIUM CHLORIDE 0.9% NEBULIZ ... INHALATION ONE ×3 (16:19)
[2017-05-20] MEDS ORDERED: methylPREDNISolone SOD SUCCI 125 MG/2 ML VIAL IM STA (16:20)
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
[2017-05-20 18:01] VITALS: BP 136/82; PULSE 90; RESP 18; TEMP 98
== END 2017-05-20 18:01 | disposition home or self-care (01) ==
LOC: EC 15:53
DX: J44.1 Chronic obstructive pulmonary disease with (acute) exacerbation (principal); E78.5 Hyperlipidemia, unspecified; I10 Essential (primary) hypertension; I25.2 Old myocardial infarction; E66.01 Morbid (severe) obesity due to excess calories; Z68.43 Body mass index [BMI] 50.0-59.9, adult; Z87.891 Personal history of nicotine dependence; Z79.82 Long term (current) use of aspirin; Z79.51 Long term (current) use of inhaled steroids; Z79.899 Other long term (current) drug therapy; Z88.5 Allergy status to narcotic agent; Z91.041 Radiographic dye allergy status; Z53.20 Procedure and treatment not carried out because of patient's decision for unspecified reasons
CPT/HCPCS: 94644; 99284

== ENCOUNTER 2017-11-29 21:29 | Inpatient (IN) | payer MEDICARE ==
[2017-11-29] MEDS ORDERED: methylPREDNISolone SOD SUCCI 125 MG/2 ML VIAL IV STA (22:08)
[2017-11-29] MEDS ORDERED: IPRATROPIUM-ALBUTEROL 3 ML NEB INHALATION STA (22:08)
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
[2017-11-29 22:43] LABS: Basophils # (A) 0.1 k/uL (0-0.2); Basophils % (A) 1 %; Eosinophils # (A) 0.3 k/uL (0-0.7); Eosinophils % (A) 3 %; HGB 13.1 gm/dL (11.4-16.0); Lymphocytes # (A) 1.8 k/uL (1.0-4.8); Lymphocytes % (A) 17 %; MCH 27.6 pg (25.0-35.0); MCHC 32.8 g/dL (31.0-37.0); MCV 84.2 fL (80.0-100.0); Mean Platelet Volume 7.9; Monocytes # (A) 0.6 k/uL (0-1.0); Monocytes % (A) 6 %; Neutrophils # (A) 7.8 k/uL (1.3-7.7); Neutrophils % (A) 73 %; Platelet Count 245 k/uL (150-450); RBC 4.75 m/uL (3.80-5.40); RDW 14.2 % (11.5-15.5); WBC 10.6 k/uL (3.8-10.6)
[2017-11-29 22:50] LABS: Creatine Kinase 48 U/L (30-135)
[2017-11-29 22:56] LABS: ALT 19 U/L (9-52); AST 33 U/L (14-36); Alkaline Phosphatase 147 U/L (38-126); Anion Gap 14 mmol/L; Blood Urea Nitrogen 20 mg/dL (7-17); Calcium 9.3 mg/dL (8.4-10.2); Carbon Dioxide 26 mmol/L (22-30); Chloride 102 mmol/L (98-107); D-Dimer 0.89 mg/L FEU (<0.60); Glucose 105 mg/dL (74-99); Prothrombin Time 9.9 sec (9.0-12.0); Sodium 142 mmol/L (137-145); Total Bilirubin 0.8 mg/dL (0.2-1.3); Total Protein 7.3 g/dL (6.3-8.2)
[2017-11-29 23:00] LABS: Creatine Kinase MB 0.4 ng/mL (0.0-2.4)
[2017-11-29 23:04] LABS: Troponin I <0.012 ng/mL (0.000-0.034)
[2017-11-29 23:16] LABS: Partial Thromboplastin Time 19.3 sec (22.0-30.0)
--- NOTE | 2017-11-29 23:17 | XR ---
EXAMINATION TYPE: XR chest 2V DATE OF EXAM: 11/29/2017 COMPARISON: 05/17/2017 HISTORY: Cough TECHNIQUE: Frontal and lateral views of the chest are obtained. FINDINGS: There is no heart failure nor confluent pneumonic infiltrate. Exam is limited by the patie nt size. I see no definite pleural effusion. Bony thorax is intact. IMPRESSION: No active cardiopulmonary disease. There is probably cardiomegaly. No significant change .
[2017-11-30] MEDS ORDERED: NITROGLYCERIN SL TABS 0.4 MG TAB SUBLINGUAL PRN (00:25)
[2017-11-30] MEDS ORDERED: HEPARIN SODIUM,PORCINE 5,000 UNIT/ML 1 ML VIAL IV STA (00:26)
[2017-11-30] MEDS: SODIUM CHLORIDE 0.9% 1,000 ML IV SCH (00:48)
[2017-11-30] MEDS: HEPARIN SOD,PORK IN 0.45% NACL 25,000 UNIT in 0.45% NACL 1 500ML.BAG IV SCH ×2 (00:51→12:36)
[2017-11-30] MEDS ORDERED: ACETAMINOPHEN TAB 325 MG TAB PO PRN (00:58)
[2017-11-30] MEDS: IPRATROPIUM-ALBUTEROL 3 ML NEB INHALATION SCH ×6 (01:16→19:46)
[2017-11-30] MEDS ORDERED: methylPREDNISolone SOD SUCCI 125 MG/2 ML VIAL IV SCH (06:00)
[2017-11-30] MEDS: SYMBICORT 80-4.5 MCG INHALER INHALATION SCH ×2 (06:56→19:46)
[2017-11-30 07:17] LABS: Glucose,Whole Blood 213 mg/dL (75-99)
[2017-11-30] MEDS: PANTOPRAZOLE 40 MG TABLET PO SCH (08:19)
[2017-11-30] MEDS: METOPROLOL SUCCINATE (ER) 25 MG TAB.ER.24H PO SCH (08:19)
[2017-11-30] MEDS: POTASSIUM CHLORIDE ER 10 MEQ TAB.ER.PRT PO SCH ×2 (08:19→21:01)
[2017-11-30] MEDS: FUROSEMIDE 40 MG TAB PO SCH (08:19)
[2017-11-30] MEDS: INSULIN ASPART 100 UNIT/ML 1 ML 10 ML VIAL SQ SCH ×4 (08:19→21:47)
[2017-11-30] MEDS: ISOSORBIDE MONONITRATE ER 30 MG TAB.ER.24H PO SCH (08:19)
[2017-11-30] MEDS: ASPIRIN 325 MG TAB PO SCH ×2 (08:19→21:03)
--- NOTE | 2017-11-30 10:44 | NM ---
EXAMINATION TYPE: NM pul vent and perfuse DATE OF EXAM: 11/30/2017 COMPARISON: VQ scan from October 09, 2016. Chest x-ray from yesterday. HISTORY: Shortness of breath with elevated d-dimer TECHNIQUE: Utilizing inhalation of 66.1 mCi Tc 99m DTPA aerosol and intravenous injection of 5.39 mC i of Tc 99m MAA, ventilation and perfusion images are acquired post injection in multiple projections . FINDINGS: Normal radiotracer distribution is noted in the lungs. There is no evidence of mismatched defects. Ca rdiomegaly is redemonstrated. IMPRESSION: Low probability for pulmonary embolism. No significant change from prior V/Q study.
--- NOTE | 2017-11-30 11:49 | P.HPIM ---
History of Present Illness H&P Date: 11/30/17 Chief Complaint: shortness of breath 56-year-old female who presented to the emergency room with a chief complaint of shortness of breath and coughing. The patient states she was recently on vacation in [place] and states she was in the car driving for long hours. She denied lower extremity pain or swelling. Patient denied chest pain or pressure. Denied fever or chills. The patient has a history of asthma, COPD, hyperlipidemia, hypertension, myocardial infarction. She has a history of osteoarthritis with bilateral total knee replacements. History of coronary artery disease with stent placement 5. She is a former cigarette smoker and quit smoking in 1986. Chest x-ray: Negative for acute cardiopulmonary disease. VQ scan: Low probability for pulmonary embolus Laboratory data: WBC 10.6. Hemoglobin 13.1. Platelet count 245. Sodium 142. Potassium 4.0. B UN 20. Creatinine 0.80. Glucose 105. Magnesium 2.0. Troponin negative 1 D-dimer: 0.89 The patient was admitted to the hospital under the care of Dr. Live. Review of Systems GENERAL: Patient denies fever. Denies chills. EYES: Denies blurred vision. Denies vision changes. Denies eye pain. EARS, NOSE, MOUTH, & THROAT: Denies headache. Denies sore throat. Denies ear pain. RESPIRATORY: Positive for shortness of breath. Positive for cough. Positive for sputum production. Denies hemoptysis. CARDIOVASCULAR: Denies chest pain or pressure. Denies palpitations. Denies arrhythmias. GASTROINTESTINAL: Denies abdominal pain. Denies diarrhea. Denies constipation. Denies nausea. Denies vomiting. Denies heartburn. Denies blood in the stool. GENITOURINARY: Denies urinary frequency. Denies burning. Denies dysuria. Denies cloudy urine. Denies blood in the urine. MUSCULOSKELETAL: Denies myalgias. Denies joint swelling. Denies decreased range of motion beyond patients baseline. INTEGUMENTARY: Denies pruitis. Denies rash. PSYCHIATRIC: Denies suicidal or homicial ideations. ENDOCRINE: Denies weight change. Denies polydipsia. Denies polyuria. HEMATOLOGIC: Denies bleeding disorders. Past Medical History Past Medical History: Asthma, Chest Pain / Angina, COPD, Hyperlipidemia, Hypertension, Myocardial Infarction ([place]) Additional Past Medical History / Comment(s): Asthma, hyperlipidemia, hypertension, coronary artery disease, bilateral cataracts, morbid obesity Last Myocardial Infarction Date:: 1997 History of Any Multi-Drug Resistant Organisms: None Reported Past Surgical History: Heart Catheterization, Orthopedic Surgery Additional Past Surgical History / Comment(s): B/L knee replacement heart cathx5 Past Anesthesia/Blood Transfusion Reactions: No Reported Reaction Past Psychological History: No Psychological Hx Reported Smoking Status: Former smoker Past Alcohol Use History: Occasional Additional Past Alcohol Use History / Comment(s): TRIED SMOKING AT AGE 10 BUT REALLY STARTED AT AGE 12, QUIT 1986-WAS SMOKING 2.5-3 PPD Past Drug Use History: None Reported Additional Drug Use History / Comment(s): past alcohol use but currently only has one beer once every few months - Past Family History Father Family Medical History: Congestive Heart Failure (CHF), CVA/TIA, Hyperlipidemia , Hypertension Mother Additional Family Medical History / Comment(s): Epilepsy Medications and Allergies Home Medications Medication Instructions Recorded Confirmed Type Atorvastatin [Lipitor] 40 mg PO HS 05/07/14 11/29/17 History Metoprolol Succinate [Toprol XL] 25 mg PO DAILY 05/07/14 11/29/17 History Potassium Chloride [K-Tab ER] 10 meq PO BID 05/07/14 11/29/17 History Aspirin EC [Ecotrin] 325 mg PO BID 10/09/16 11/29/17 History Isosorbide Mononitrate ER [Imdur] 30 mg PO DAILY 10/09/16 11/29/17 History Omeprazole 40 mg PO DAILY 10/09/16 11/29/17 History Nitroglycerin Sl Tabs [Nitrostat] 0.4 mg SUBLINGUAL Q5M PRN 10/10/16 11/29/17 History Albuterol Inhaler [Ventolin Hfa 1 - 2 puff INHALATION RT-Q6H PRN 01/06/17 History Inhaler] Fluticasone/Salmeterol [Advair 1 puff INHALATION RT-BID 01/06/17 11/29/17 History 250-50 Diskus] Furosemide [Lasix] 40 mg PO DAILY 05/17/17 11/29/17 History Ipratropium-Albuterol Nebulize 3 ml INHALATION RT-QID 05/17/17 11/29/17 History [Duoneb 0.5 mg-3 mg/3 ml Soln] Ranolazine [Ranexa] 500 mg PO HS 05/17/17 11/29/17 History Allergies Allergy/AdvReac Type Severity Reaction Status Date / Time Iodinated Contrast- Oral and Allergy Severe Anaphylaxis/Decreased Verified 11/29 22:24 IV Dye Blood [Iodinated Contrast Media - Pressure Oral and] codeine Allergy Rash/Nausea Verified 11/29/17 22:24 & Vomiting Physical Exam Vitals: Vital Signs Temp Pulse Pulse Resp BP BP Pulse Ox 11/30/17 08:00 18 11/30/17 07:10 102 H 11/30/17 06:59 98 93 L 11/30/17 06:25 98.7 F 97 20 105/63 94 L 11/30/17 01:56 97.8 F 77 18 102/58 93 L 11/30/17 01:29 80 11/30/17 01:16 76 11/29/17 23:06 74 22 127/62 95 11/29/17 22:53 24 11/29/17 22:34 80 11/29/17 22:24 76 11/29/17 21:49 98.1 F 85 20 117/70 93 L Intake and Output 11/29/17 11/30/17 11/30/17 22:59 06:59 14:59 Intake Total 659.068 Balance 659.068 Intake: Intake, IV Titration 339.068 Amount Heparin Sod,Pork in 0.45% 339.068 NaCl 25,000 unit In 0.45 % NaCl 1 500ml.bag @ 17.6 UNITS/KG/HR 45.82 mls/hr IV .[id number] [facility] Rx#: [id number] Oral 320 Other: # Voids 1 Weight 130.181 kg GENERAL: This is a 56-year-old female in no apparent distress at the time of examination. Pleasant and cooperative. HEENT: Head is atraumatic, normocephalic. Pupils are equal, round, and reactive to light. Sclerae anicteric. Conjunctivae are clear. Mucus membranes of the mouth are moist. Neck is supple. RESPIRATORY: Diminished at the bases with scattered rhonchi. No use of accessory muscles. Patient maintaining oxygen saturation greater than 92%. No chest wall tenderness is noted on palpation or with deep breathing. CARDIOVASCULAR: Regular rate and rhythm. S1 and S2 noted. No systolic or diastolic murmur auscultated. No JVD noted. No S3 or S4 noted. GASTROINTESTINAL: No distention noted. Abdomen soft and round. Normal active bowel sounds auscultated x 4 quadrants. No pain or tenderness noted upon palpation. INTEGUMENTARY: No cyanosis. No jaundice. No rashes noted. No cellulitis noted. EXTREMITIES: 2+ peripheral pulses. No evidence of peripheral edema. No calf tenderness noted. NEUROLOGIC: Cranial nerves II-XII intact. PSYCHIATRIC: Awake, alert, and oriented X 3. Appropriate affect. Intact judgement and insight. Results CBC & Chem 7: 11/29/17 22:30 11/29/17 22:30 Labs: Abnormal Lab Results - Last 24 Hours (Table) 11/29/17 11/29/17 11/29/17 Range/Units 22:30 22:30 22:30 Neutrophils # 7.8 H (1.3-7.7) k/uL APTT 19.3 L (22.0-30.0) sec D-Dimer 0.89 H (<0.60) mg/L FEU BUN 20 H (7-17) mg/dL Glucose 105 H (74-99) mg/dL POC Glucose (mg/dL) (75-99) mg/dL Alkaline Phosphatase 147 H (38-126) U/L 11/30/17 11/30/17 Range/Units 06:57 07:12 Neutrophils # (1.3-7.7) k/uL APTT >200.0 H* (22.0-30.0) sec D-Dimer (<0.60) mg/L FEU BUN (7-17) mg/dL Glucose (74-99) mg/dL POC Glucose (mg/dL) 213 H (75-99) mg/dL Alkaline Phosphatase (38-126) U/L Thrombosis Risk Factor Assmnt - Choose All That Apply Any of the Below Risk Factors Present?: Yes Each Factor Represents 1 point: Abnormal pulmonary function (COPD), Age 41-60 years, Obesity (BMI >25) Other Risk Factors: No Other congenital or acquired thrombophilia - If yes, enter type in comment: No Thrombosis Risk Factor Assessment Total Risk Factor Score: 3 Thrombosis Risk Factor Assessment Level: Moderate Risk Assessment and Plan Plan: ASSESSMENT: 1. Shortness of breath and coughing with recent prolonged immobility, VQ scan reveals low probability for pulmonary embolus, suspect mild acute exacerbation of chronic obstructive pulmonary disease with purulent tracheobronchitis 2. Coronary artery disease with previous stent placement 5 3. Essential hypertension 4. Hyperlipidemia 5. History of myocardial infarction 6. Osteoarthritis with history of bilateral total knee replacements 7. Nicotine dependence, in remission, patient quit smoking in 1986 8. Severe obesity: BMI 52.5 PLAN: Discontinue heparin drip Continue IV steroids: will decrease to 40mg Q 8 Begin levaquin 750mg PO daily Continue Duoneb treatments Capillary blood glucose accuchecks Sputum culture Wean oxygen as tolerated Home meds as appropriate Monitor labs GI prophylaxis: Protonix 40 mg PO Daily DVT prophylaxis: Heparin 5000 units subcu every 8 hours Monitor vital signs and address as appropriate Further recommendations pending patient's course Anticipate discharge home tomorrow if patient remains stable Nurse practitioner note has been reviewed by physician. Signing provider agrees with the documented findings, assessment, and plan of care.
[2017-11-30] MEDS: LEVOFLOXACIN 750 MG TAB PO SCH (12:35)
[2017-11-30 12:38] LABS: Glucose,Whole Blood 287 mg/dL (75-99)
[2017-11-30] MEDS: HEPARIN SODIUM,PORCINE 5,000 UNIT/ML 1 ML VIAL SQ SCH (17:05)
[2017-11-30] MEDS: methylPREDNISolone SOD SUCCI 40 MG/ML 1 ML VIAL IV SCH (17:05)
[2017-11-30 17:32] LABS: Glucose,Whole Blood 222 mg/dL (75-99)
[2017-11-30] MEDS ORDERED: RANOLAZINE 500 MG TAB.ER.12H PO SCH (21:00)
[2017-11-30] MEDS ORDERED: ATORVASTATIN 40 MG TAB PO SCH (21:00)
[2017-11-30 21:23] LABS: Glucose,Whole Blood 270 mg/dL (75-99)
[2017-11-30] MEDS ORDERED: IPRATROPIUM-ALBUTEROL 3 ML NEB INHALATION PRN (23:41)
[2017-12-01] MEDS: methylPREDNISolone SOD SUCCI 40 MG/ML 1 ML VIAL IV SCH ×2 (00:08→08:40)
[2017-12-01] MEDS: HEPARIN SODIUM,PORCINE 5,000 UNIT/ML 1 ML VIAL SQ SCH ×2 (00:08→08:39)
[2017-12-01] MEDS: SODIUM CHLORIDE 0.9% 1,000 ML IV SCH (00:08)
[2017-12-01 06:29] VITALS: BP 109/66; TEMP 98
[2017-12-01 07:17] LABS: Glucose,Whole Blood 165 mg/dL (75-99)
[2017-12-01] MEDS: SYMBICORT 80-4.5 MCG INHALER INHALATION SCH (07:21)
[2017-12-01 07:37] VITALS: PULSE 100
[2017-12-01] MEDS ORDERED: IPRATROPIUM-ALBUTEROL 3 ML NEB INHALATION SCH (08:00)
[2017-12-01] MEDS: FUROSEMIDE 40 MG TAB PO SCH (08:39)
[2017-12-01] MEDS: POTASSIUM CHLORIDE ER 10 MEQ TAB.ER.PRT PO SCH (08:39)
[2017-12-01] MEDS: LEVOFLOXACIN 750 MG TAB PO SCH (08:39)
[2017-12-01] MEDS: PANTOPRAZOLE 40 MG TABLET PO SCH (08:39)
[2017-12-01] MEDS: ASPIRIN 325 MG TAB PO SCH (08:39)
[2017-12-01] MEDS: METOPROLOL SUCCINATE (ER) 25 MG TAB.ER.24H PO SCH (08:39)
[2017-12-01] MEDS: ISOSORBIDE MONONITRATE ER 30 MG TAB.ER.24H PO SCH (08:39)
[2017-12-01] MEDS: INSULIN ASPART 100 UNIT/ML 1 ML 10 ML VIAL SQ SCH (08:40)
[2017-12-01 09:58] VITALS: RESP 16
--- NOTE | 2017-12-01 10:27 | P.DS ---
Providers Date of admission: 11/30/17 00:21 Expected date of discharge: 12/01/17 Attending physician: Osbaldo Live Primary care physician: Osbaldo Live [facility] Course: 56-year-old female who presented to the emergency room with a chief complaint of shortness of breath and coughing. The patient states she was recently on vacation in [place] and states she was in the car driving for long hours. She denied lower extremity pain or swelling. Patient denied chest pain or pressure. Denied fever or chills. The patient has a history of asthma, COPD, hyperlipidemia, hypertension, myocardial infarction. She has a history of osteoarthritis with bilateral total knee replacements. History of coronary artery disease with stent placement 5. She is a former cigarette smoker and quit smoking in 1986. Chest x-ray: Negative for acute cardiopulmonary disease. VQ scan: Low probability for pulmonary embolus Laboratory data: WBC 10.6. Hemoglobin 13.1. Platelet count 245. Sodium 142. Potassium 4.0. B UN 20. Creatinine 0.80. Glucose 105. Magnesium 2.0. Troponin negative 1 D-dimer: 0.89 The patient was admitted to the hospital under the care of Dr. Live. The patient was started on a heparin drip in the ER. She underwent VQ scan which revealed low probability for a PE. Her heparin drip was discontinued. She was placed on IV steroids and weaned down as patient tolerated. She was also started on Levaquin daily. Blood cultures negative at the 24 hour jeronimo. Sputum culture is pending. Patient has been afebrile. Vital signs stable. She states her shortness of breath and coughing has signifcantly improved and she is requesting to be discharged home. The patient was deemed stable for discharge per Dr. Live. Prescriptions for Levaquin and a prednisone taper were sent to the patients preferred pharmacy. She is to follow up in [address] Live DISCHARGE DIAGNOSIS: 1. Shortness of breath and coughing with recent prolonged immobility, VQ scan reveals low probability for pulmonary embolus, suspect mild acute exacerbation of chronic obstructive pulmonary disease with purulent tracheobronchitis, improved at the time of discharge 2. Coronary artery disease with previous stent placement 5 3. Essential hypertension 4. Hyperlipidemia 5. History of myocardial infarction 6. Osteoarthritis with history of bilateral total knee replacements 7. Nicotine dependence, in remission, patient quit smoking in 1986 8. Severe obesity: BMI 52.5 Nurse practitioner note has been reviewed by physician. Signing provider agrees with the documented findings, assessment, and plan of care. Patient Condition at Discharge: Stable Plan - Discharge Summary Discharge Rx Participant: Yes New Discharge Prescriptions: New Levofloxacin [Levaquin] 750 mg PO DAILY #7 tab predniSONE See Taper PO DIRECTED #30 tab Continue Potassium Chloride [K-Tab ER] 10 meq PO BID Metoprolol Succinate [Toprol XL] 25 mg PO DAILY Atorvastatin [Lipitor] 40 mg PO HS Omeprazole 40 mg PO DAILY Isosorbide Mononitrate ER [Imdur] 30 mg PO DAILY Aspirin EC [Ecotrin] 325 mg PO BID Nitroglycerin Sl Tabs [Nitrostat] 0.4 mg SUBLINGUAL Q5M PRN PRN Reason: Chest Pain Fluticasone/Salmeterol [Advair 250-50 Diskus] 1 puff INHALATION RT-BID Albuterol Inhaler [Ventolin Hfa Inhaler] 1 - 2 puff INHALATION RT-Q6H PRN PRN Reason: Shortness Of Breath Ranolazine [Ranexa] 500 mg PO HS Ipratropium-Albuterol Nebulize [Duoneb 0.5 mg-3 mg/3 ml Soln] 3 ml INHALATION RT-QID Furosemide [Lasix] 40 mg PO DAILY Discharge Medication List Atorvastatin [Lipitor] 40 mg PO HS 05/07/14 [History] Metoprolol Succinate [Toprol XL] 25 mg PO DAILY 05/07/14 [History] Potassium Chloride [K-Tab ER] 10 meq PO BID 05/07/14 [History] Aspirin EC [Ecotrin] 325 mg PO BID 10/09/16 [History] Isosorbide Mononitrate ER [Imdur] 30 mg PO DAILY 10/09/16 [History] Omeprazole 40 mg PO DAILY 10/09/16 [History] Nitroglycerin Sl Tabs [Nitrostat] 0.4 mg SUBLINGUAL Q5M PRN 10/10/16 [History] Albuterol Inhaler [Ventolin Hfa Inhaler] 1 - 2 puff INHALATION RT-Q6H PRN [History] Fluticasone/Salmeterol [Advair 250-50 Diskus] 1 puff INHALATION RT-BID 01/06/17 [History] Furosemide [Lasix] 40 mg PO DAILY 05/17/17 [History] Ipratropium-Albuterol Nebulize [Duoneb 0.5 mg-3 mg/3 ml Soln] 3 ml INHALATION RT -QID 05/17/17 [History] Ranolazine [Ranexa] 500 mg PO HS 05/17/17 [History] Levofloxacin [Levaquin] 750 mg PO DAILY #7 tab 12/01/17 [Rx] predniSONE See Taper PO DIRECTED #30 tab 12/01/17 [Rx] Follow up Appointment(s)/Referral(s): Osbaldo Live DO [Primary Care Provider] - 12/12/17 2:30 pm Patient Instructions/Handouts: Asthma (DC) Activity/Diet/Wound Care/Special Instructions: Cardiac diet. Activity as tolerated. Discharge Disposition: HOME SELF-CARE
== END 2017-12-01 09:59 | disposition home or self-care (01) | DRG 191 ==
LOC: EC 21:29 → 4MS4W 11-30 00:21
PROVIDERS: ADMIT Family Medicine; ATTEND Family Medicine
DX: J44.0 Chronic obstructive pulmonary disease with (acute) lower respiratory infection (principal); J45.901 Unspecified asthma with (acute) exacerbation; Z68.43 Body mass index [BMI] 50.0-59.9, adult; E66.01 Morbid (severe) obesity due to excess calories; J44.1 Chronic obstructive pulmonary disease with (acute) exacerbation; J20.9 Acute bronchitis, unspecified; I25.10 Atherosclerotic heart disease of native coronary artery without angina pectoris; E78.5 Hyperlipidemia, unspecified; I10 Essential (primary) hypertension; M19.91 Primary osteoarthritis, unspecified site; F17.201 Nicotine dependence, unspecified, in remission; R79.1 Abnormal coagulation profile; H26.9 Unspecified cataract; I25.2 Old myocardial infarction; Z96.653 Presence of artificial knee joint, bilateral; Z95.5 Presence of coronary angioplasty implant and graft; Z79.82 Long term (current) use of aspirin; Z79.51 Long term (current) use of inhaled steroids; Z79.899 Other long term (current) drug therapy; Z88.5 Allergy status to narcotic agent; Z91.041 Radiographic dye allergy status; Z82.49 Family history of ischemic heart disease and other diseases of the circulatory system; Z83.49 Family history of other endocrine, nutritional and metabolic diseases; Z82.0 Family history of epilepsy and other diseases of the nervous system; Z82.3 Family history of stroke
CPT/HCPCS: 36415; 71046; 78582; 80053; 82550; 82553; 83735; 83880; 84484; 85025; 85379; 85610; 85730; 87040; 87070; 87205; 93005; 94640; 94760; 96374; 96375; 99285

== ENCOUNTER 2018-10-14 13:31 | Emergency (ER) | payer MEDICARE ==
--- NOTE | 2018-10-14 14:00 | ED ---
General Adult HPI - General Chief complaint: Shortness of Breath Stated complaint: Cough,NADIA Time Seen by Provider: 10/14/18 13:35 Source: patient, RN notes reviewed Mode of arrival: ambulatory Limitations: no limitations - History of Present Illness Initial comments: This is a 57-year-old female who presents emergency department complaining of a cough since Tuesday. Patient states she's also had some shortness of breath associated with cough. Patient states she has chest pain but only when she coughs or takes a really deep breath. Patient denies any fever chills patient denies any palpitations. Patient denies any abdominal pain patient denies nausea or vomiting. Patient denies any swelling to the legs or calf tenderness. Patient denies any lightheadedness dizziness or near syncopal episode. - Related Data Home Medications Medication Instructions Recorded Confirmed Atorvastatin [Lipitor] 40 mg PO HS 05/07/14 10/14/18 Metoprolol Succinate [Toprol XL] 25 mg PO DAILY 05/07/14 10/14/18 Potassium Chloride [K-Tab ER] 10 meq PO BID 05/07/14 10/14/18 Aspirin EC [Ecotrin] 325 mg PO BID 10/09/16 10/14/18 Isosorbide Mononitrate ER [Imdur] 30 mg PO DAILY 10/09/16 10/14/18 Omeprazole 40 mg PO DAILY 10/09/16 10/14/18 Nitroglycerin Sl Tabs [Nitrostat] 0.4 mg SUBLINGUAL Q5M PRN 10/10/16 10/14/18 Albuterol Inhaler [Ventolin Hfa 1 - 2 puff INHALATION RT-Q6H PRN 01/06/17 Inhaler] Furosemide [Lasix] 40 mg PO DAILY 05/17/17 10/14/18 Ipratropium-Albuterol Nebulize 3 ml INHALATION RT-QID 05/17/17 10/14/18 [Duoneb 0.5 mg-3 mg/3 ml Soln] Ranolazine [Ranexa] 500 mg PO HS 05/17/17 10/14/18 Allergies Allergy/AdvReac Type Severity Reaction Status Date / Time Iodinated Contrast- Oral and Allergy Severe Anaphylaxis/Decreased Verified 10/14 13:49 IV Dye Blood [Iodinated Contrast Media - Pressure Oral and] codeine Allergy Rash/Nausea Verified 10/14/18 13:49 & Vomiting Review of Systems ROS Statement: Those systems with pertinent positive or pertinent negative responses have been documented in the HPI. ROS Other: All systems not noted in ROS Statement are negative. Past Medical History Past Medical History: Asthma, Coronary Artery Disease (CAD), Chest Pain / Angina , COPD, Hyperlipidemia, Hypertension, Myocardial Infarction ([place]) Additional Past Medical History / Comment(s): bilateral cataracts, morbid obesity Last Myocardial Infarction Date:: 1997 History of Any Multi-Drug Resistant Organisms: None Reported Past Surgical History: Heart Catheterization, Orthopedic Surgery Additional Past Surgical History / Comment(s): B/L knee replacement, heart cathx5 Past Anesthesia/Blood Transfusion Reactions: No Reported Reaction Past Psychological History: No Psychological Hx Reported Smoking Status: Former smoker Past Alcohol Use History: Occasional Past Drug Use History: None Reported - Past Family History Father Family Medical History: Congestive Heart Failure (CHF), CVA/TIA, Hyperlipidemia , Hypertension Mother Additional Family Medical History / Comment(s): Epilepsy General Exam - General Exam Comments Initial Comments: GENERAL: Patient is well-developed and well-nourished. Patient is nontoxic and well- hydrated and is in mild distress. ENT: Neck is soft and supple. No significant lymphadenopathy is noted. Oropharynx is clear. Moist mucous membranes. Neck has full range of motion without eliciting any pain. EYES: The sclera were anicteric and conjunctiva were pink and moist. Extraocular movements were intact and pupils were equal round and reactive to light. Eyelids were unremarkable. PULMONARY: Unlabored respirations. Good breath sounds bilaterally. No audible rales rhonchi or wheezing was noted. CARDIOVASCULAR: There is a regular rate and rhythm without any murmurs gallops or rubs. ABDOMEN: Soft and nontender with normal bowel sounds. Patient is morbidly obese SKIN: Skin is clear with no lesions or rashes and otherwise unremarkable. NEUROLOGIC: Patient is alert and oriented x3. Cranial nerves II through XII are grossly intact. Motor and sensory are also intact. Normal speech, volume and content. Symmetrical smile. MUSCULOSKELETAL: Normal extremities with adequate strength and full range of motion. LYMPHATICS: No significant lymphadenopathy is noted PSYCHIATRIC: Normal psychiatric evaluation. Limitations: no limitations Course Vital Signs 10/14/18 13:34 Temperature 97.5 F L Pulse Rate 80 Respiratory 20 Rate Blood Pressure 107/71 Medical Decision Making - Medical Decision Making EKG shows sinus rhythm with occasional PAC at 77 bpm ME interval is on a 48 QRS is 96 Q-T intervals 42 QTC is 454. Patient shows some T-wave inversions in V1 and V2 and V3 with a little bit of depression which was seen in previous EKGs. Patient has no chest pain currently. I went back into reevaluate the patient she was resting comfortably without any chest pain. Patient states anytime she has a chest pain if she coughs hard. Patient states she's had no sputum production with the cough. Patient states as long she sits still she is not short of breath. Patient has been oxygen in the high 90s to 100% on no oxygen in the emergency department. Patient's heart rate is been in the 70s consistently. - Lab Data Result diagrams: 10/14/18 14:02 10/14/18 14:02 Lab Results 10/14/18 10/14/18 10/14/18 Range/Units 14:02 14:02 14:02 WBC 7.6 (3.8-10.6) k/uL RBC 4.54 (3.80-5.40) m/uL Hgb 13.2 (11.4-16.0) gm/dL Hct 39.9 (34.0-46.0) % MCV 87.8 (80.0-100.0) fL MCH 29.1 (25.0-35.0) pg MCHC 33.2 (31.0-37.0) g/dL RDW 14.6 (11.5-15.5) % Plt Count 240 (150-450) k/uL Neutrophils % 64 % Lymphocytes % 24 % Monocytes % 6 % Eosinophils % 4 % Basophils % 1 % Neutrophils # 4.9 (1.3-7.7) k/uL Lymphocytes # 1.8 (1.0-4.8) k/uL Monocytes # 0.4 (0-1.0) k/uL Eosinophils # 0.3 (0-0.7) k/uL Basophils # 0.1 (0-0.2) k/uL PT 10.1 (9.0-12.0) sec INR 0.9 (<1.2) APTT 24.5 (22.0-30.0) sec Sodium 140 (137-145) mmol/L Potassium 3.8 (3.5-5.1) mmol/L Chloride 105 (98-107) mmol/L Carbon Dioxide 26 (22-30) mmol/L Anion Gap 9 mmol/L BUN 15 (7-17) mg/dL Creatinine 0.67 (0.52-1.04) mg/dL Est GFR (CKD-EPI)AfAm >90 (>60 ml/min/1.73 sqM) Est GFR (CKD-EPI)NonAf >90 (>60 ml/min/1.73 sqM) Glucose 137 H (74-99) mg/dL Calcium 8.9 (8.4-10.2) mg/dL Magnesium 1.9 (1.6-2.3) mg/dL Total Bilirubin 0.6 (0.2-1.3) mg/dL AST 27 (14-36) U/L ALT 35 (9-52) U/L Alkaline Phosphatase 145 H (38-126) U/L Troponin I (0.000-0.034) ng/mL NT-Pro-B Natriuret Pep pg/mL Total Protein 6.6 (6.3-8.2) g/dL Albumin 3.8 (3.5-5.0) g/dL 10/14/18 10/14/18 Range/Units 14:02 14:02 WBC (3.8-10.6) k/uL RBC (3.80-5.40) m/uL Hgb (11.4-16.0) gm/dL Hct (34.0-46.0) % MCV (80.0-100.0) fL MCH (25.0-35.0) pg MCHC (31.0-37.0) g/dL RDW (11.5-15.5) % Plt Count (150-450) k/uL Neutrophils % % Lymphocytes % % Monocytes % % Eosinophils % % Basophils % % Neutrophils # (1.3-7.7) k/uL Lymphocytes # (1.0-4.8) k/uL Monocytes # (0-1.0) k/uL Eosinophils # (0-0.7) k/uL Basophils # (0-0.2) k/uL PT (9.0-12.0) sec INR (<1.2) APTT (22.0-30.0) sec Sodium (137-145) mmol/L Potassium (3.5-5.1) mmol/L Chloride (98-107) mmol/L Carbon Dioxide (22-30) mmol/L Anion Gap mmol/L BUN (7-17) mg/dL Creatinine (0.52-1.04) mg/dL Est GFR (CKD-EPI)AfAm (>60 ml/min/1.73 sqM) Est GFR (CKD-EPI)NonAf (>60 ml/min/1.73 sqM) Glucose (74-99) mg/dL Calcium (8.4-10.2) mg/dL Magnesium (1.6-2.3) mg/dL Total Bilirubin (0.2-1.3) mg/dL AST (14-36) U/L ALT (9-52) U/L Alkaline Phosphatase (38-126) U/L Troponin I <0.012 (0.000-0.034) ng/mL NT-Pro-B Natriuret Pep 83 pg/mL Total Protein (6.3-8.2) g/dL Albumin (3.5-5.0) g/dL Disposition Clinical Impression: Upper respiratory infection Disposition: HOME SELF-CARE Instructions (If sedation given, give patient instructions): Upper Respiratory Infection (ED) Is patient prescribed a controlled substance at d/c from ED?: No Referrals: Osbaldo Live DO [Primary Care Provider] - 1-2 days Time of Disposition: 15:57
[2018-10-14 14:15] LABS: Basophils # (A) 0.1 k/uL (0-0.2); Basophils % (A) 1 %; Eosinophils # (A) 0.3 k/uL (0-0.7); Eosinophils % (A) 4 %; HCT 39.9 % (34.0-46.0); HGB 13.2 gm/dL (11.4-16.0); Lymphocytes # (A) 1.8 k/uL (1.0-4.8); Lymphocytes % (A) 24 %; MCH 29.1 pg (25.0-35.0); MCHC 33.2 g/dL (31.0-37.0); MCV 87.8 fL (80.0-100.0); Mean Platelet Volume 7.3; Monocytes # (A) 0.4 k/uL (0-1.0); Monocytes % (A) 6 %; Neutrophils # (A) 4.9 k/uL (1.3-7.7); Neutrophils % (A) 64 %; Platelet Count 240 k/uL (150-450); RBC 4.54 m/uL (3.80-5.40); RDW 14.6 % (11.5-15.5); WBC 7.6 k/uL (3.8-10.6)
[2018-10-14 14:28] LABS: ALT 35 U/L (9-52); AST 27 U/L (14-36); Albumin 3.8 g/dL (3.5-5.0); Alkaline Phosphatase 145 U/L (38-126); Anion Gap 9 mmol/L; Blood Urea Nitrogen 15 mg/dL (7-17); Calcium 8.9 mg/dL (8.4-10.2); Carbon Dioxide 26 mmol/L (22-30); Chloride 105 mmol/L (98-107); Glucose 137 mg/dL (74-99); Magnesium 1.9 mg/dL (1.6-2.3); Potassium 3.8 mmol/L (3.5-5.1); Sodium 140 mmol/L (137-145); Total Bilirubin 0.6 mg/dL (0.2-1.3); Total Protein 6.6 g/dL (6.3-8.2)
[2018-10-14 14:29] LABS: INR 0.9 (<1.2); Partial Thromboplastin Time 24.5 sec (22.0-30.0); Prothrombin Time 10.1 sec (9.0-12.0)
--- NOTE | 2018-10-14 14:36 | XR ---
EXAMINATION TYPE: XR chest 2V DATE OF EXAM: 10/14/2018 COMPARISON: Chest radiograph 06/09/2018 HISTORY: Dyspnea TECHNIQUE: Frontal and lateral views of the chest are obtained. FINDINGS: There is no focal air space opacity, pleural effusion, or pneumothorax seen. Anterior medi astinal opacity is again seen and unchanged. The cardiac silhouette size is within normal limits. Th e osseous structures are intact. IMPRESSION: 1 No acute cardiopulmonary process. No significant interval change.
[2018-10-14 16:20] VITALS: BP 139/69; PULSE 66; RESP 18; TEMP 98.7
== END 2018-10-14 16:20 | disposition home or self-care (01) ==
LOC: EC 13:31
DX: J06.9 Acute upper respiratory infection, unspecified (principal); R07.9 Chest pain, unspecified; J44.9 Chronic obstructive pulmonary disease, unspecified; I25.10 Atherosclerotic heart disease of native coronary artery without angina pectoris; I25.2 Old myocardial infarction; E78.5 Hyperlipidemia, unspecified; I10 Essential (primary) hypertension; Z87.891 Personal history of nicotine dependence; Z79.82 Long term (current) use of aspirin; Z79.899 Other long term (current) drug therapy; Z88.5 Allergy status to narcotic agent; Z91.041 Radiographic dye allergy status; Z95.818 Presence of other cardiac implants and grafts; Z96.653 Presence of artificial knee joint, bilateral; E66.01 Morbid (severe) obesity due to excess calories
CPT/HCPCS: 36415; 71046; 80053; 83735; 83880; 84484; 85025; 85610; 85730; 93005; 99285

== ENCOUNTER → 2020-05-20 | Outpatient (CLI) | payer MEDICARE ==
--- NOTE | 2020-05-20 16:21 | XR ---
EXAMINATION TYPE: XR thoracic spine 2V DATE OF EXAM: 05/20/2020 COMPARISON: None HISTORY: Pain, injury TECHNIQUE: Three-view thoracic spine FINDINGS: There are 12 thoracic type vertebral bodies. Pedicles are intact. Disc heights are preserve d. Vertebral body heights are preserved. IMPRESSION: 1. No acute osseous abnormality thoracic spine.
--- NOTE | 2020-05-20 22:16 | XR ---
EXAMINATION TYPE: XR lumbar spine 2 or 3V DATE OF EXAM: 05/20/2020 CLINICAL HISTORY: Strain injury with pain. TECHNIQUE: Frontal and lateral images of the lumbar spine are obtained. COMPARISON: None FINDINGS: There are 5 lumbar type vertebral bodies identified. The lumbar spine shows slight grade 1 anterolisthesis L4 and L5. Vertebral bodies and disc space heights are fairly well-maintained. Mild multilevel lateral spurring. Oval 1.8 cm density in the region of right L2 transverse process suspic ious for right renal calculus near renal pelvis. Correlate clinically. IMPRESSION: As above.
== END | disposition home or self-care (01) ==
LOC: RADXRMAIN 15:39
PROVIDERS: ATTEND Family Medicine
DX: M43.16 Spondylolisthesis, lumbar region (principal); M46.07 Spinal enthesopathy, lumbosacral region; M54.6 Pain in thoracic spine; S29.9XXA Unspecified injury of thorax, initial encounter
CPT/HCPCS: 72070; 72100

== ENCOUNTER 2020-09-01 11:11 | Inpatient (IN) | payer MEDICARE ==
[2020-09-01 12:09] LABS: Basophils % (A) 0 %; Eosinophils % (A) 0 %; HCT 40.6 % (34.0-46.0); HGB 13.5 gm/dL (11.4-16.0); Lymphocytes # (A) 0.7 k/uL (1.0-4.8); Lymphocytes % (A) 9 %; MCH 28.5 pg (25.0-35.0); MCHC 33.2 g/dL (31.0-37.0); MCV 85.9 fL (80.0-100.0); Monocytes # (A) 0.5 k/uL (0-1.0); Monocytes % (A) 6 %; Neutrophils # (A) 6.9 k/uL (1.3-7.7); Neutrophils % (A) 84 %; Platelet Count 208 k/uL (150-450); RBC 4.73 m/uL (3.80-5.40); WBC 8.2 k/uL (3.8-10.6)
--- NOTE | 2020-09-01 12:11 | ED ---
General Adult HPI - General Chief complaint: Shortness of Breath Stated complaint: NADIA, Covid + Time Seen by Provider: 09/01/20 11:13 Source: patient, RN notes reviewed Mode of arrival: EMS Limitations: no limitations - History of Present Illness Initial comments: Patient 59-year-old female significant past history for COPD, presented to the emergency room today which point shortness of breath. Patient does admit that she's had some increased cough congestion last few days. She does not that family member was positive for covid 19. Patient states that she had increased cough congestion this morning was feeling short of breath. Patient states that she did do back to back breathing treatments at home and felt slightly better. Patient does admit to feeling better with [facility] emergency room. Denies any other complaints or symptoms. Patient denies any chest pain, back pain, abdominal pain, nausea or vomiting, headaches or visual changes, or any other complaints. - Related Data Home Medications Medication Instructions Recorded Confirmed Atorvastatin [Lipitor] 40 mg PO HS 05/07/14 09/01/20 Metoprolol Succinate [Toprol XL] 25 mg PO DAILY 05/07/14 09/01/20 Potassium Chloride [K-Tab ER] 10 meq PO BID 05/07/14 09/01/20 Isosorbide Mononitrate ER [Imdur] 30 mg PO DAILY 10/09/16 09/01/20 Omeprazole 40 mg PO DAILY 10/09/16 09/01/20 Nitroglycerin Sl Tabs [Nitrostat] 0.4 mg SUBLINGUAL Q5M PRN 10/10/16 09/01/20 Furosemide [Lasix] 40 mg PO DAILY 05/17/17 09/01/20 Ipratropium-Albuterol Nebulize 3 ml INHALATION RT-QID 05/17/17 09/01/20 [Duoneb 0.5 mg-3 mg/3 ml Soln] Albuterol Sulfate [Ventolin HFA] 2 puff INHALATION RT-Q6H PRN 09/01/20 09/01/20 Ascorbic Acid [Vitamin C] 1,000 mg PO DAILY 09/01/20 09/01/20 Aspirin EC [Ecotrin Low Dose] 81 mg PO DAILY 09/01/20 09/01/20 Cholecalciferol [Vitamin D3 (25 1,000 unit PO DAILY 09/01/20 09/01/20 Mcg = 1000 Iu)] dexAMETHasone [Dexamethasone] 6 mg PO DAILY 09/01/20 09/01/20 Allergies Allergy/AdvReac Type Severity Reaction Status Date / Time Iodinated Contrast Media Allergy Severe Anaphylaxis/Decreased Verified 09/01/20 12:45 [Iodinated Contrast Media - Blood Oral and] Pressure codeine Allergy Rash/Nausea Verified 09/01/20 12:45 & Vomiting Review of Systems ROS Statement: Those systems with pertinent positive or pertinent negative responses have been documented in the HPI. ROS Other: All systems not noted in ROS Statement are negative. Past Medical History Past Medical History: Asthma, Coronary Artery Disease (CAD), Chest Pain / Angina, COPD, Hyperlipidemia, Hypertension, Myocardial Infarction (SD) Additional Past Medical History / Comment(s): bilateral cataracts, morbid obesity Last Myocardial Infarction Date:: 1997 History of Any Multi-Drug Resistant Organisms: None Reported Past Surgical History: Heart Catheterization, Orthopedic Surgery Additional Past Surgical History / Comment(s): B/L knee replacement, heart cathx5 Past Anesthesia/Blood Transfusion Reactions: No Reported Reaction Past Psychological History: No Psychological Hx Reported Smoking Status: Former smoker Past Alcohol Use History: Occasional Past Drug Use History: None Reported - Past Family History Father Family Medical History: Congestive Heart Failure (CHF), CVA/TIA, Hyperlipidemia, Hypertension Mother Additional Family Medical History / Comment(s): Epilepsy General Exam - General Exam Comments Initial Comments: General: The patient is awake and alert, in no distress, and does not appear acutely ill. Eye: extra-ocular movements are intact. No nystagmus. There is normal conjunctiva bilaterally. No signs of icterus. Ears, nose, mouth and throat: There are moist mucous membranes and no oral lesions. Neck: The neck is supple, there is no tenderness or JVD. Cardiovascular: There is a regular rate and rhythm. No murmur, rub or gallop is appreciated. Respiratory: Lungs are clear to auscultation, respirations are non-labored, breath sounds are equal. No wheezes, stridor, rales, or rhonchi. Musculoskeletal: Normal ROM, no tenderness. Strength 5/5. Sensation intact. Pulses equal bilaterally 2+. Neurological: A&O x 3. CN II-XII intact, There are no obvious motor or sensory deficits. Coordination appears grossly intact. Speech is normal. Skin: Skin is warm and dry and no rashes or lesions are noted. Psychiatric: Cooperative, appropriate mood & affect, normal judgment. Limitations: no limitations Course Vital Signs 09/01/20 09/01/20 11:18 12:52 Temperature 102.8 F H Pulse Rate 99 90 Respiratory 18 18 Rate Blood Pressure 136/77 117/66 O2 Sat by Pulse 96 96 Oximetry Medical Decision Making - Medical Decision Making Patient was hypoxic placed on some oxygen states she is feeling better. She says cough congestion does have some test positive in the family. Patient's comatose was positive today. Chest x-ray does show evidence for infiltrate. Patient given dose of dexamethasone here in emergency room. Patient will be admitted for continued treatment and evaluation. - Lab Data Result diagrams: 09/01/20 11:52 09/01/20 11:52 Lab Results 09/01/20 09/01/20 09/01/20 Range/Units 11:52 11:52 11:52 WBC 8.2 (3.8-10.6) k/uL RBC 4.73 (3.80-5.40) m/uL Hgb 13.5 (11.4-16.0) gm/dL Hct 40.6 (34.0-46.0) % MCV 85.9 (80.0-100.0) fL MCH 28.5 (25.0-35.0) pg MCHC 33.2 (31.0-37.0) g/dL RDW 14.0 (11.5-15.5) % Plt Count 208 (150-450) k/uL MPV 8.0 Neutrophils % 84 % Lymphocytes % 9 % Monocytes % 6 % Eosinophils % 0 % Basophils % 0 % Neutrophils # 6.9 (1.3-7.7) k/uL Lymphocytes # 0.7 L (1.0-4.8) k/uL Monocytes # 0.5 (0-1.0) k/uL Eosinophils # 0.0 (0-0.7) k/uL Basophils # 0.0 (0-0.2) k/uL PT 10.2 (9.0-12.0) sec INR 0.9 (<1.2) APTT 21.5 L (22.0-30.0) sec D-Dimer 1.34 H (<0.60) mg/L FEU Sodium 134 L (137-145) mmol/L Potassium 3.5 (3.5-5.1) mmol/L Chloride 100 (98-107) mmol/L Carbon Dioxide 30 (22-30) mmol/L Anion Gap 4 mmol/L BUN 8 (7-17) mg/dL Creatinine 0.50 L (0.52-1.04) mg/dL Est GFR (CKD-EPI)AfAm >90 (>60 ml/min/1.73 sqM) Est GFR (CKD-EPI)NonAf >90 (>60 ml/min/1.73 sqM) Glucose 149 H (74-99) mg/dL Plasma Lactic Acid Elvis (0.7-2.0) mmol/L Calcium 8.2 L (8.4-10.2) mg/dL Magnesium 1.6 (1.6-2.3) mg/dL Total Bilirubin 0.8 (0.2-1.3) mg/dL AST 29 (14-36) U/L ALT 24 (4-34) U/L Alkaline Phosphatase 124 (38-126) U/L Lactate Dehydrogenase 703 H (313-618) U/L C-Reactive Protein 43.5 H (<10.0) mg/L Total Protein 6.2 L (6.3-8.2) g/dL Albumin 3.4 L (3.5-5.0) g/dL Coronavirus (PCR) (Not Detectd) 09/01/20 09/01/20 Range/Units 11:52 11:55 WBC (3.8-10.6) k/uL RBC (3.80-5.40) m/uL Hgb (11.4-16.0) gm/dL Hct (34.0-46.0) % MCV (80.0-100.0) fL MCH (25.0-35.0) pg MCHC (31.0-37.0) g/dL RDW (11.5-15.5) % Plt Count (150-450) k/uL MPV Neutrophils % % Lymphocytes % % Monocytes % % Eosinophils % % Basophils % % Neutrophils # (1.3-7.7) k/uL Lymphocytes # (1.0-4.8) k/uL Monocytes # (0-1.0) k/uL Eosinophils # (0-0.7) k/uL Basophils # (0-0.2) k/uL PT (9.0-12.0) sec INR (<1.2) APTT (22.0-30.0) sec D-Dimer (<0.60) mg/L FEU Sodium (137-145) mmol/L Potassium (3.5-5.1) mmol/L Chloride (98-107) mmol/L Carbon Dioxide (22-30) mmol/L Anion Gap mmol/L BUN (7-17) mg/dL Creatinine (0.52-1.04) mg/dL Est GFR (CKD-EPI)AfAm (>60 ml/min/1.73 sqM) Est GFR (CKD-EPI)NonAf (>60 ml/min/1.73 sqM) Glucose (74-99) mg/dL Plasma Lactic Acid Elvis 2.1 H* (0.7-2.0) mmol/L Calcium (8.4-10.2) mg/dL Magnesium (1.6-2.3) mg/dL Total Bilirubin (0.2-1.3) mg/dL AST (14-36) U/L ALT (4-34) U/L Alkaline Phosphatase (38-126) U/L Lactate Dehydrogenase (313-618) U/L C-Reactive Protein (<10.0) mg/L Total Protein (6.3-8.2) g/dL Albumin (3.5-5.0) g/dL Coronavirus (PCR) Detected A (Not Detectd) Disposition Clinical Impression: Pneumonia due to COVID-19 virus Disposition: ADMITTED IP TO THIS HOSP Condition: Stable Is patient prescribed a controlled substance at d/c from ED?: No Referrals: Osbaldo Live DO [Primary Care Provider] - 1-2 days Time of Disposition: 13:34
--- NOTE | 2020-09-01 12:18 | XR ---
EXAMINATION TYPE: XR chest 1V portable DATE OF EXAM: 09/01/2020 COMPARISON: Chest x-ray October 14, 2018 HISTORY: Cough and difficulty in breathing. TECHNIQUE: Single frontal view of the chest is obtained. FINDINGS: There is persistent cardiomegaly. Background chronic parenchymal changes bilaterally with increased opacities in the mid to lower lungs greatest in the periphery. No large pleural effusion or pneumothorax. The osseous structures are intact. IMPRESSION: Correlate for covid- 19 infection with new opacities in the mid to lower lungs greatest in the periphery. Background chronic parenchymal change and cardiomegaly. Underlying interstitial gavin ma is in the differential, correlate clinically.
[2020-09-01 12:21] LABS: ALT 24 U/L (4-34); AST 29 U/L (14-36); African American GFR (CKD) >90 (>60 ml/min/1.73 sqM); Albumin 3.4 g/dL (3.5-5.0); Alkaline Phosphatase 124 U/L (38-126); Anion Gap 4 mmol/L; Blood Urea Nitrogen 8 mg/dL (7-17); Calcium 8.2 mg/dL (8.4-10.2); Carbon Dioxide 30 mmol/L (22-30); Chloride 100 mmol/L (98-107); Glucose 149 mg/dL (74-99); LDH 703 U/L (313-618); Magnesium 1.6 mg/dL (1.6-2.3); Non-African American GFR(CKD) >90 (>60 ml/min/1.73 sqM); Potassium 3.5 mmol/L (3.5-5.1); Sodium 134 mmol/L (137-145); Total Bilirubin 0.8 mg/dL (0.2-1.3); Total Protein 6.2 g/dL (6.3-8.2)
[2020-09-01 12:55] LABS: INR 0.9 (<1.2); Partial Thromboplastin Time 21.5 sec (22.0-30.0); Prothrombin Time 10.2 sec (9.0-12.0)
[2020-09-01 13:00] LABS: C Reactive Protein 43.5 mg/L (<10.0)
[2020-09-01] MEDS ORDERED: DEXAMETHASONE SOD PHOSPHATE 10 MG/ML 1 ML VIAL IV STA (13:17)
[2020-09-01 13:20] LABS: D-Dimer 1.34 mg/L FEU (<0.60)
[2020-09-01] MEDS ORDERED: NALOXONE 0.4 MG/ML 1 ML VIAL IV PRN (13:34)
[2020-09-01] MEDS: ACETAMINOPHEN TAB 325 MG TAB PO PRN (14:06)
[2020-09-01] MEDS: ALBUTEROL HFA INHALER INHALATION SCH (19:42)
[2020-09-01] MEDS: SYMBICORT 160-4.5 MCG INHALER INHALATION SCH (19:42)
--- NOTE | 2020-09-01 20:35 | CONS ---
CONSULTATION PULMONARY/CRITICAL CARE CONSULTATION: DATE OF SERVICE: 09/01/2020 REASON FOR CONSULTATION: Cough. This is a patient who is a nice 59-year-old female who has a history of underlying COPD. She apparently presented to the emergency department with complaints of shortness of breath. She also had some pain in her chest and cough. When talking to her today, she states her primary issue was cough. She states that she could not stop coughing. In fact, also had sharp pain in her chest when she did cough. She really was not short of breath per se. It sounds like they could have just treated her with Decadron, vitamins including vitamin C, vitamin D3, zinc and some cough syrup and sent her home. She was wondering about that herself. Her primary care physician is Dr. Osbaldo Live. Currently she is on oxygen at 2 L. She did test positive for COVID back on August 20. She was admitted on September 01. She is not receiving any IV fluids. She looks pretty comfortable here in the room. HOME MEDICATIONS: Reviewed. She is on Lipitor, metoprolol, potassium, Imdur, omeprazole, sublingual nitroglycerin, Lasix, DuoNeb, albuterol inhaler, vitamin C, vitamin D3 and Decadron. ALLERGIES: CODEINE and IVP DYE. MEDICAL HISTORY: Medical history includes asthma, CAD, chest pain, COPD, hyperlipidemia, hypertension and myocardial infarction. Additional medical history includes obesity and cataracts. Her previous NC was in 1997. SURGICAL HISTORY: Surgical history includes bilateral knee replacement and heart catheterization x5. SOCIAL HISTORY: Positive for previous tobacco use. She drinks alcohol occasionally. No illicit drug use. FAMILY HISTORY: Positive for father with heart failure, stroke, hyperlipidemia and hypertension and mother with epilepsy. REVIEW OF SYSTEMS: CONSTITUTIONAL: Negative. NEUROLOGIC: Negative. HEENT: Negative. CARDIOVASCULAR: Sharp chest pain with coughing. PULMONARY: Minimal shortness of breath. Mostly cough. GI: Negative. : Negative. RHEUMATOLOGIC: Negative. IMMUNOLOGIC: Negative. ENDOCRINOLOGIC: Negative. DERMATOLOGIC: Negative. PHYSICAL EXAMINATION: VITAL SIGNS: Current vital signs are reviewed. Temperature 99.1, T-max 102.8, heart rate 93, respiratory rate 19, blood pressure 127/66, mean 86, two-liter saturation 94%. GENERAL APPEARANCE: She appears in no acute distress. HEENT: Examination is grossly unremarkable. NECK: Supple. Full range of motion. No adenopathy. Neck veins are flat. CARDIOVASCULAR: Examination reveals regular rhythm and rate. S1, S2 normal. No S3, S4 or murmur. Heart rate 84. LUNGS: Lungs reveal a few scattered rhonchi. No wheezes or crackles. Breath sounds equal. ABDOMEN: Obese. Bowel sounds are heard. EXTREMITIES: Intact. Mild edema. SKIN: Without rash. NEUROLOGIC: Neurologic examination is brief but nonfocal. LABS/IMAGING: White count 8.2, hemoglobin 13.5, hematocrit 40.6, platelet count 280,000. PT/INR normal. PTT 21.5. D-dimer 1.34. Sodium 134, potassium 3.5, chloride 100, CO2 30. Anion gap is 4. BUN and creatinine were 8 and 0.5. Lactic acid is 2.1, repeat 1.2. LDH 703. C-reactive protein 43.5. Albumin 3.4. COVID testing was positive. Microbiology was negative. Chest x-ray shows some minimal bilateral infiltrates, mostly peripheral in nature. CURRENT MEDICATIONS: Reviewed. The patient is on Tylenol. ASSESSMENT: 1. Mild chronic obstructive pulmonary disease exacerbation, primarily characterized by cough. 2. COVID-19 pneumonitis with minimal hypoxemic respiratory failure. 3. History of previous tobacco use. 4. History of hyperlipidemia. 5. History of hypertension. 6. History of gastroesophageal reflux disease. 7. Coronary artery disease. 8. History of chest pain/angina. 9. Prior history of myocardial infarction. PLAN: Will add Decadron 6 mg p.o. daily. In addition, will add an albuterol inhaler and Symbicort. No additional recommendations are made. The patient should be on vitamin C, vitamin D3 and zinc. The patient could probably be discharged home tomorrow. Will continue to follow. MMODL / IJN: [id number] /
[2020-09-01 20:46] LABS: Ferritin 183.1 ng/mL (10.0-291.0)
[2020-09-02 05:18] LABS: Basophils % (A) 1 %; Eosinophils % (A) 0 %; HGB 13.5 gm/dL (11.4-16.0); Lymphocytes # (A) 0.5 k/uL (1.0-4.8); Lymphocytes % (A) 6 %; MCH 29.2 pg (25.0-35.0); MCHC 33.7 g/dL (31.0-37.0); MCV 86.7 fL (80.0-100.0); Mean Platelet Volume 7.7; Monocytes # (A) 0.4 k/uL (0-1.0); Monocytes % (A) 6 %; Neutrophils # (A) 6.7 k/uL (1.3-7.7); Neutrophils % (A) 87 %; Platelet Count 201 k/uL (150-450); RBC 4.61 m/uL (3.80-5.40); RDW 13.8 % (11.5-15.5); WBC 7.7 k/uL (3.8-10.6)
[2020-09-02] MEDS: ALBUTEROL HFA INHALER INHALATION SCH ×4 (07:32→19:39)
[2020-09-02] MEDS: SYMBICORT 160-4.5 MCG INHALER INHALATION SCH ×2 (07:33→19:39)
[2020-09-02] MEDS: ASCORBIC ACID 500 MG TAB PO SCH (08:51)
[2020-09-02] MEDS: CHOLECALCIFEROL 1,000 UNIT TAB PO SCH (08:51)
[2020-09-02] MEDS: dexAMETHasone 2 MG TAB PO SCH (08:51)
[2020-09-02] MEDS: ZINC SULFATE 220 MG CAP PO SCH (08:51)
[2020-09-02 10:16] LABS: Anion Gap 9.5 mmol/L (4.00-12.00); BUN/Creat Ratio 18.33 Ratio (12.00-20.00); Calcium 8.6 mg/dL (8.7-10.3); Carbon Dioxide 29.5 mmol/L (21.6-31.8); Non-African American GFR(CKD) 98.4 (60.0-200.0); Potassium 4.6 mmol/L (3.5-5.5)
[2020-09-02] MEDS: ACETAMINOPHEN TAB 325 MG TAB PO PRN (12:55)
[2020-09-02 14:38] VITALS: BMI 54.3
--- NOTE | 2020-09-02 14:45 | P.HPIM ---
History of Present Illness H&P Date: 09/02/20 Chief Complaint: Worsening shortness of breath, positive Covid This is a 59-year-old female with history of chronic intermittent asthma, CAD, OK, COPD, hypertension, hyperlipidemia, former nicotine dependence presented to the ER with worsening shortness of breath, harsh cough and multiple other medical issues. Tested positive for fermin virus August 20 and inpatient as w benny; reports she contacted it from her step kids. T-max 102.8. Blood cultures obtained. Maintaining O2 sats of 93-98% on 2 L nasal cannula. Lactic acid 2.1, with IV fluid hydration, significantly improved down to 1.2. CAD 700s, CRP 43.5, d-dimer 1.34, ferritin 183, pro calcitonin 0.07. Maintained on Golden and regimen. Reports diarrhea this morning. Chest x-ray reporting new opacity is in the mid to lower lungs greatest in the periphery, background chronic parenchymal change in cardiomegaly, underlying interstitial edema. Review of Systems ROS Statement: Those systems with pertinent positive or pertinent negative responses have been documented in the HPI. ROS Other: All systems not noted in ROS Statement are negative. Past Medical History Past Medical History: Asthma, Coronary Artery Disease (CAD), Chest Pain / Angina, COPD, Hyperlipidemia, Hypertension, Myocardial Infarction (OK) Additional Past Medical History / Comment(s): bilateral cataracts, morbid obesity Last Myocardial Infarction Date:: 1997 History of Any Multi-Drug Resistant Organisms: None Reported Past Surgical History: Heart Catheterization, Orthopedic Surgery Additional Past Surgical History / Comment(s): B/L knee replacement, heart cath x5 Past Anesthesia/Blood Transfusion Reactions: No Reported Reaction Smoking Status: Former smoker - Past Family History Father Family Medical History: Congestive Heart Failure (CHF), CVA/TIA, Hyperlipidemia, Hypertension Mother Additional Family Medical History / Comment(s): Epilepsy Medications and Allergies Home Medications Medication Instructions Recorded Confirmed Type Atorvastatin [Lipitor] 40 mg PO HS 05/07/14 09/01/20 History Metoprolol Succinate [Toprol XL] 25 mg PO DAILY 05/07/14 09/01/20 History Potassium Chloride [K-Tab ER] 10 meq PO BID 05/07/14 09/01/20 History Isosorbide Mononitrate ER [Imdur] 30 mg PO DAILY 10/09/16 09/01/20 History Omeprazole 40 mg PO DAILY 10/09/16 09/01/20 History Nitroglycerin Sl Tabs [Nitrostat] 0.4 mg SUBLINGUAL Q5M PRN 10/10/16 09/01/20 History Furosemide [Lasix] 40 mg PO DAILY 05/17/17 09/01/20 History Ipratropium-Albuterol Nebulize 3 ml INHALATION RT-QID 05/17/17 09/01/20 History [Duoneb 0.5 mg-3 mg/3 ml Soln] Albuterol Sulfate [Ventolin HFA] 2 puff INHALATION RT-Q6H PRN 09/01/20 09/01/20 History Ascorbic Acid [Vitamin C] 1,000 mg PO DAILY 09/01/20 09/01/20 History Aspirin EC [Ecotrin Low Dose] 81 mg PO DAILY 09/01/20 09/01/20 History Cholecalciferol [Vitamin D3 (25 1,000 unit PO DAILY 09/01/20 09/01/20 History Mcg = 1000 Iu)] dexAMETHasone [Dexamethasone] 6 mg PO DAILY 09/01/20 09/01/20 History Allergies Allergy/AdvReac Type Severity Reaction Status Date / Time Iodinated Contrast Media Allergy Severe Anaphylaxis/Decreased Verified 09/01/20 15:50 [Iodinated Contrast Media - Blood Oral and] Pressure codeine Allergy Rash/Nausea Verified 09/01/20 15:50 & Vomiting Physical Exam Vitals: Vital Signs Temp Pulse Pulse Resp BP BP Pulse Ox 09/02/20 07:33 98 09/02/20 05:00 98.3 F 84 20 133/79 93 L 09/01/20 20:00 98.1 F 77 20 142/70 95 09/01/20 19:42 95 09/01/20 18:15 98.4 F 88 18 129/79 94 L 09/01/20 14:59 99.1 F 93 19 127/66 94 L 09/01/20 14:11 99.8 F H 09/01/20 14:00 84 23 123/56 95 09/01/20 13:30 83 20 113/69 92 L 09/01/20 13:00 90 20 117/66 95 09/01/20 12:52 90 18 117/66 96 09/01/20 11:18 102.8 F H 99 18 136/77 96 Intake and Output 09/01/20 09/02/20 09/02/20 22:59 06:59 14:59 Other: Voiding Method Toilet # Voids 1 2 # Bowel Movements 2 Weight 130.635 kg PHYSICAL EXAM: VITAL SIGNS: As above GENERAL: Sitting up in bed, no acute distress HEENT: Conjunctivae normal. eyes normal. NECK: No JVD. No thyroid enlargement. No LNs CARDIOVASCULAR: S1, S2 regular.. No murmur RESPIRATION: Breath sounds diminished in the bases. Occasional scattered rhonchi or crackles. No bronchial breathing. Harsh cough. ABDOMEN: Soft, nontender . No guarding. no masses palpable. No ascites, No hepatosplenomegaly.Bowel sounds heard. LEGS: Mild edema, no cyanosis or clubbing. PSYCHIATRY: Alert and oriented X3, mood and affect normal. NERVOUS SYSTEM: Cranial N 2-12 grossly normal. Moves all 4 limbs. Diffuse weakness No focal deficits. Strength and sensation grossly intact.. Skin: no lesions, no rash Joints: No active swelling. No inflammation. Lymphatic system. No LN neck axilla or groin. Results CBC & Chem 7: 09/02/20 04:39 09/02/20 04:39 Labs: Abnormal Lab Results - Last 24 Hours (Table) 09/01/20 09/01/20 09/01/20 Range/Units 11:52 11:52 11:52 Lymphocytes # 0.7 L (1.0-4.8) k/uL APTT 21.5 L (22.0-30.0) sec D-Dimer 1.34 H (<0.60) mg/L FEU Sodium 134 L (137-145) mmol/L Creatinine 0.50 L (0.52-1.04) mg/dL Glucose 149 H (74-99) mg/dL Plasma Lactic Acid Elvis (0.7-2.0) mmol/L Calcium 8.2 L (8.4-10.2) mg/dL Lactate Dehydrogenase 703 H (313-618) U/L C-Reactive Protein 43.5 H (<10.0) mg/L Total Protein 6.2 L (6.3-8.2) g/dL Albumin 3.4 L (3.5-5.0) g/dL Coronavirus (PCR) (Not Detectd) 09/01/20 09/01/20 09/02/20 Range/Units 11:52 11:55 04:39 Lymphocytes # 0.5 L (1.0-4.8) k/uL APTT (22.0-30.0) sec D-Dimer (<0.60) mg/L FEU Sodium (137-145) mmol/L Creatinine (0.52-1.04) mg/dL Glucose (74-99) mg/dL Plasma Lactic Acid Elvis 2.1 H* (0.7-2.0) mmol/L Calcium (8.4-10.2) mg/dL Lactate Dehydrogenase (313-618) U/L C-Reactive Protein (<10.0) mg/L Total Protein (6.3-8.2) g/dL Albumin (3.5-5.0) g/dL Coronavirus (PCR) Detected A (Not Detectd) Thrombosis Risk Factor Assmnt - Choose All That Apply Each Factor Represents 1 point: Abnormal pulmonary function (COPD), Obesity (BMI >25), Serious lung disease incl. pneumonia (< 1month) Other Risk Factors: Yes Each Risk Factor Represents 2 Points: Age 61-74 years Other congenital or acquired thrombophilia - If yes, enter type in comment: No Thrombosis Risk Factor Assessment Total Risk Factor Score: 5 Thrombosis Risk Factor Assessment Level: High Risk Assessment and Plan Assessment: Acute Covid-19 pneumonitis Acute COPD exacerbation Lactic acidosis, resolved Prior nicotine dependence Hypertension Hyperlipidemia Gastroesophageal reflux disease CAD, history of OK Plan: Continue on current medication regime ,monitoring and to make treatment. Maintain Covid/COPD regimen. Increase ambulation as tolerated. New-onset diarrhea, monitor overnight. Discharge planning in progress for tomorrow morning. The impression and plan of care has been dictated as directed. : I performed a history and examination of this patient, discussed the same with the dictator. I agree with the dictator's note ,documented as a scribe. Any additional findings or plans will be noted.
[2020-09-02] MEDS ORDERED: Magnesium Replacement Protocol 1 EACH MISC MISCELLANE PRN (14:46)
--- NOTE | 2020-09-02 14:47 | P.PN ---
Subjective Progress Note Date: 09/02/20 Principal diagnosis: Shortness of breath, cough. 59-year-old female who was seen yesterday in consultation. The patient presented to the hospital with complaints of cough, and mild shortness of breath. The symptoms likely related to a mild to moderate COPD exacerbation, as well as a mild case of COVID 19 pneumonitis. Currently, the patient tells me that the primary care physician told her she could stay another day. I thought this patient was stable enough for discharge yesterday. Her major issue was that of cough not shortness of breath. Nonetheless, she has a history of previous tobacco use, hyperlipidemia, essential hypertension, gastroesophageal reflux disease, coronary artery disease, angina pectoris, and a prior history of myocardial infarction. She seemed to be resting comfortably. Her shortness of breath is completely dissipated. She has minimal cough. She denies any fever or chills. I did recommend Decadron 6 mg a day for 10 days. We also added an albuterol inhaler yesterday and Symbicort. These are her usual home medications. Finally, we did make the recommendation that she should be on vitamin C, vitamin D3, and zinc. Objective - Vital Signs Vital signs: Vital Signs Temp 100.3 F H 09/02/20 12:00 Pulse 92 09/02/20 12:00 Resp 18 09/02/20 12:00 BP 116/73 09/02/20 12:00 Pulse Ox 92 L 09/02/20 12:00 Intake & Output 09/01/20 09/02/20 09/02/20 18:59 06:59 18:59 Weight 130.635 kg 130.635 kg Other: Voiding Method Toilet Toilet Toilet # Voids 1 2 # Bowel Movements 2 - Exam No acute distress, oriented 3. Nasal O2 at 2 L noted. HEENT examination is grossly unremarkable. Mucous membranes are moist. No oral lesions. Neck supple. Full range of motion. No adenopathy thyromegaly or neck vein distention. Cardiovascular examination reveals regular rhythm rate. S1-S2 normal. No S3 or S4. No discernible murmur noted. Heart rate is 69 bpm. Heart sounds are d istant. Lungs reveal mostly clear breath sounds. Breath sounds are diminished bilaterally. No wheezes. No crackles. A few scattered rhonchi are noted. Abdomen soft bowel sounds are heard. No masses or tenderness. Extremities are intact. No cyanosis or clubbing appreciated. Mild edema of the lower extremities is noted. Skin is without rash or lesion. Neurologic examination is brief but nonfocal. - Labs CBC & Chem 7: 09/02/20 04:39 09/02/20 04:39 Labs: Abnormal Lab Results - Last 24 Hours (Table) 09/02/20 09/02/20 Range/Units 04:39 04:39 Lymphocytes # 0.5 L (1.0-4.8) k/uL Glucose 326 H (70-110) mg/dL Calcium 8.6 L (8.7-10.3) mg/dL Assessment and Plan Assessment: Shortness of breath, and mostly cough, multifactorial, in part related to mild COPD exacerbation, as well as mild COVID 19 pneumonitis. Mild hypoxemic respiratory failure secondary to above. History of previous tobacco use. History of hyperlipidemia. History of hypertension. Gastroesophageal reflux disease. Coronary artery disease. History of angina pectoris. History of myocardial infarction. Plan: Plan dated 09/02/2020. Yesterday, we added Decadron to her regimen. Also, we added albuterol inhaler, and Symbicort. In addition, we recommend vitamin C, vitamin D3, and zinc. The patient can likely be discharged in the next 24 hours. She is mostly asymptomatic. We will continue to follow. No additional recommendations are made. Labs, medications, and x-rays are all reviewed. Time with Patient: Less than 30
[2020-09-03] MEDS: ALBUTEROL HFA INHALER INHALATION SCH ×3 (07:27→15:45)
[2020-09-03] MEDS: SYMBICORT 160-4.5 MCG INHALER INHALATION SCH (07:27)
[2020-09-03 08:06] VITALS: RESP 18
[2020-09-03] MEDS ORDERED: NITROGLYCERIN SL TABS 0.4 MG TAB SUBLINGUAL PRN (08:20)
[2020-09-03] MEDS ORDERED: PANTOPRAZOLE 40 MG TABLET PO SCH (09:00)
[2020-09-03] MEDS ORDERED: POTASSIUM CHLORIDE ER 10 MEQ TAB.ER.PRT PO SCH (09:00)
[2020-09-03] MEDS ORDERED: ISOSORBIDE MONONITRATE ER 30 MG TAB.ER.24H PO SCH (09:00)
[2020-09-03] MEDS ORDERED: ASPIRIN 81 MG PO SCH (09:00)
[2020-09-03] MEDS ORDERED: FUROSEMIDE 40 MG TAB PO SCH (09:00)
[2020-09-03] MEDS ORDERED: METOPROLOL SUCCINATE (ER) 25 MG TAB.ER.24H PO SCH (09:00)
[2020-09-03] MEDS: ZINC SULFATE 220 MG CAP PO SCH (09:16)
[2020-09-03] MEDS: dexAMETHasone 2 MG TAB PO SCH (09:16)
[2020-09-03] MEDS: CHOLECALCIFEROL 1,000 UNIT TAB PO SCH (09:16)
[2020-09-03] MEDS: ASCORBIC ACID 500 MG TAB PO SCH (09:17)
[2020-09-03 11:02] VITALS: BP 91/58; PULSE 84; TEMP 98.9
--- NOTE | 2020-09-03 12:51 | XR ---
EXAMINATION TYPE: XR chest 1V portable DATE OF EXAM: 09/03/2020 CLINICAL HISTORY: Cough and Difficulty breathing progress study. TECHNIQUE: Single AP portable upright view of the chest is obtained. COMPARISON: Chest x-ray from 2 days earlier and older studies FINDINGS: Background cardiomegaly is redemonstrated. Background mild chronic parenchymal changes wit h worsening multifocal opacities greatest in the peripheral mid lung and bilateral lower lungs. Degen erative change bilateral glenohumeral joints redemonstrated. IMPRESSION: Findings consistent with worsening covid-19 infection progression, cardiomegaly and chron ic parenchymal changes with worsening multifocal bilateral acute infiltrates and/or organizing consol idations.
--- NOTE | 2020-09-03 15:15 | P.DS ---
Providers Date of admission: 09/01/20 13:27 Attending physician: Osbaldo Live Consults: 09/01/20 13:37 Consult Physician Routine Consulting Provider: Tito Mckeon Consult Reason/Comments: covid Do you want consulting provider notified?: Yes Primary care physician: Osbaldo Live Hospital Course: Final Diagnoses: Acute Covid-19 pneumonitis Acute COPD exacerbation Acute hypoxic respiratory failure Lactic acidosis, resolved Prior nicotine dependence Hypertension Hyperlipidemia Gastroesophageal reflux disease CAD, history of [place] Hospital course:This is a 59-year-old female with history of chronic inter mittent asthma, CAD, [place], COPD, hypertension, hyperlipidemia, former nicotine dependence presented to the ER with worsening shortness of breath, harsh cough and multiple other medical issues. Tested positive for fermin virus August 20 and inpatient as well; reports she contacted it from her addwishs. T-max 102.8. Blood cultures obtained. Maintaining O2 sats of 93-98% on 2 L nasal cannula. Lactic acid 2.1, with IV fluid hydration, significantly improved down to 1.2. CAD 700s, CRP 43.5, d-dimer 1.34, ferritin 183, pro calcitonin 0.07. Maintained on [place] and regimen. Reports diarrhea this morning. Chest x-ray reporting new opacity is in the mid to lower lungs greatest in the periphery, background chronic parenchymal change in cardiomegaly, underlying interstitial edema. Significant clinical improvement. Patient will be discharged home today pending final DC recommendations and clearance from pulmonary. The impression and plan of care has been dictated as directed. : I performed a history and examination of this patient, discussed the same with the dictator. I agree with the dictator's note ,documented as a scribe. Any additional findings or plans will be noted. Patient Condition at Discharge: Stable Plan - Discharge Summary New Discharge Prescriptions: New Zinc Sulfate [Orazinc] 220 mg PO DAILY #0 cap Budesonide-Formot 160-4.5 Mcg [Symbicort 160-4.5 Mcg Inhaler] 2 puff INHALATION RT-BID #1 inh Continue Potassium Chloride [K-Tab ER] 10 meq PO BID Metoprolol Succinate [Toprol XL] 25 mg PO DAILY Atorvastatin [Lipitor] 40 mg PO HS Omeprazole 40 mg PO DAILY Isosorbide Mononitrate ER [Imdur] 30 mg PO DAILY Nitroglycerin Sl Tabs [Nitrostat] 0.4 mg SUBLINGUAL Q5M PRN PRN Reason: Chest Pain Ipratropium-Albuterol Nebulize [Duoneb 0.5 mg-3 mg/3 ml Soln] 3 ml INHALATION RT-QID Furosemide [Lasix] 40 mg PO DAILY Aspirin EC [Ecotrin Low Dose] 81 mg PO DAILY Albuterol Sulfate [Ventolin HFA] 2 puff INHALATION RT-Q6H PRN PRN Reason: Shortness Of Breath Cholecalciferol [Vitamin D3 (25 Mcg = 1000 Iu)] 1,000 unit PO DAILY Ascorbic Acid [Vitamin C] 1,000 mg PO DAILY Changed dexAMETHasone [Dexamethasone] See Taper PO DAILY #6 tab Discharge Medication List Atorvastatin [Lipitor] 40 mg PO HS 05/07/14 [History] Metoprolol Succinate [Toprol XL] 25 mg PO DAILY 05/07/14 [History] Potassium Chloride [K-Tab ER] 10 meq PO BID 05/07/14 [History] Isosorbide Mononitrate ER [Imdur] 30 mg PO DAILY 10/09/16 [History] Omeprazole 40 mg PO DAILY 10/09/16 [History] Nitroglycerin Sl Tabs [Nitrostat] 0.4 mg SUBLINGUAL Q5M PRN 10/10/16 [History] Furosemide [Lasix] 40 mg PO DAILY 05/17/17 [History] Ipratropium-Albuterol Nebulize [Duoneb 0.5 mg-3 mg/3 ml Soln] 3 ml INHALATION RT-QID 05/17/17 [History] Albuterol Sulfate [Ventolin HFA] 2 puff INHALATION RT-Q6H PRN 09/01/20 [History] Ascorbic Acid [Vitamin C] 1,000 mg PO DAILY 09/01/20 [History] Aspirin EC [Ecotrin Low Dose] 81 mg PO DAILY 09/01/20 [History] Cholecalciferol [Vitamin D3 (25 Mcg = 1000 Iu)] 1,000 unit PO DAILY 09/01/20 [History] Budesonide-Formot 160-4.5 Mcg [Symbicort 160-4.5 Mcg Inhaler] 2 puff INHALATION RT-BID #1 inh 09/03/20 [Rx] Zinc Sulfate [Orazinc] 220 mg PO DAILY #0 cap 01/13/21 [Rx] dexAMETHasone [Dexamethasone] See Taper PO DAILY #6 tab 09/03/20 [Rx] Follow up Appointment(s)/Referral(s): Osbaldo Live DO [Primary Care Provider] - 1 Week (Please call and schedule your follow up appointment, the office line was busy.) Dev Addison [NON-STAFF] - Patient Instructions/Handouts: Dexamethasone (By mouth), Budesonide/Formoterol (By breathing), Viral Pneumonia (DC), Using Oxygen at Home (DC), Pulse Oximetry (DC) Activity/Diet/Wound Care/Special Instructions: Covid Quarantine--Maintain safe distance from others. Limit exposure and wear masks. Rest and hydration. Obtain Pulse Oximeter and monitor Oxygen level. If symptoms worsen, please return to the hospital.
--- NOTE | 2020-09-03 16:08 | P.PN ---
Subjective Progress Note Date: 09/03/20 Principal diagnosis: Acute CoVID 19 pneumonitis 59-year-old female who was seen yesterday in consultation. The patient presented to the hospital with complaints of cough, and mild shortness of breath. The symptoms likely related to a mild to moderate COPD exacerbation, as well as a mild case of COVID 19 pneumonitis. Currently, the patient tells me that the primary care physician told her she could stay another day. I thought this patient was stable enough for discharge yesterday. Her major issue was that of cough not shortness of breath. Nonetheless, she has a history of previous tobacco use, hyperlipidemia, essential hypertension, gastroesophageal reflux disease, coronary artery disease, angina pectoris, and a prior history of myocardial infarction. She seemed to be resting comfortably. Her shortness of breath is completely dissipated. She has minimal cough. She denies any fever or chills. I did recommend Decadron 6 mg a day for 10 days. We also added an albuterol inhaler yesterday and Symbicort. These are her usual home medications. Finally, we did make the recommendation that she should be on vitamin C, vitamin D3, and zinc. The patient is seen today 09/03/2020 in follow-up on the regular medical floor. She is awake and alert in no acute distress. Currently sitting up at the bedside. She's been up ambulating with assistance without any worsening shortness of breath. She continues with a dry nonproductive cough. She is maintaining good O2 saturations in the 90s on 3 L/m per nasal cannula. Chest x- ray continues to show evidence of multifocal opacities consistent with CoVID 19 infection. There is cardiomegaly and chronic parenchymal changes. She did desaturate to 79% with ambulation on room air. Recovered up into the 90s on 3 L. She is continued on Symbicort, albuterol, oral diuretics. Continued on dexamethasone, Protonix, vitamin supplements. Objective - Vital Signs Vital signs: Vital Signs Temp 98.9 F 09/03/20 11:00 Pulse 84 09/03/20 11:00 Resp 18 09/03/20 11:00 BP 91/58 09/03/20 11:00 Pulse Ox 86 L 09/03/20 11:26 Intake & Output 09/02/20 09/03/20 09/03/20 18:59 06:59 18:59 Intake Total 240 Output Total 3 Balance 237 Weight 130.635 kg Intake: Oral 240 Output: Urine 3 Other: Voiding Method Toilet Toilet Toilet # Voids 5 # Bowel Movements 3 3 - Exam GENERAL EXAM: Alert, active, pleasant 59-year-old female patient, on 3 L nasal cannula, comfortable in no apparent distress. HEAD: Normocephalic. EYES: Normal reaction of pupils, equal size. NOSE: Clear with pink turbinates. THROAT: No erythema or exudates. NECK: No masses, no JVD. CHEST: No chest wall deformity. LUNGS: Equal air entry with few scattered rhonchi CVS: S1 and S2 normal with no audible murmur, regular rhythm. ABDOMEN: No hepatosplenomegaly, normal bowel sounds, no guarding or rigidity. SPINE: No scoliosis or deformity SKIN: No rashes CENTRAL NERVOUS SYSTEM: No focal deficits, tone is normal in all 4 extremities. EXTREMITIES: There is no peripheral edema. No clubbing, no cyanosis. Peripheral pulses are intact. - Labs CBC & Chem 7: 09/02/20 04:39 09/02/20 04:39 Labs: Microbiology - Last 24 Hours (Table) 09/01/20 12:30 Blood Culture - Preliminary Blood No Growth after 48 hours 09/01/20 12:23 Blood Culture - Preliminary Blood No Growth after 48 hours Assessment and Plan Assessment: 1 Acute hypoxic respiratory failure secondary to acute CoVID 19 pneumonitis 2 Acute exacerbation of chronic obstructive pulmonary disease secondary to above 3 Previous history of chronic tobacco dependence 4 Hyperlipidemia 5 Hypertension 6 Gastroesophageal reflux disease 7 Coronary artery disease Plan: The patient was seen and evaluated by Dr. Mckeon Chest x-ray reviewed Stable from the pulmonary standpoint Continue the current treatment plan Complete 10 days of dexamethasone May require home oxygen I, the cosigning physician, performed a history & physical examination of the patient. Lungs sounds with few scattered rhonchi. Maintaining good O2 saturations in the 90s on 3 L/m per nasal cannula. I discussed the assessment and plan of care with my nurse practitioner, Petra Martin. I attest to the above note as dictated by her.
[2020-09-03] MEDS ORDERED: ATORVASTATIN 40 MG TAB PO SCH (21:00)
== END 2020-09-03 16:16 | disposition home or self-care (01) | DRG 177 ==
LOC: EC 11:11 → 6NMEDSUR 13:27
PROVIDERS: ADMIT Family Medicine; ATTEND Family Medicine
DX: U07.1 COVID-19 (principal); J12.82 Pneumonia due to coronavirus disease 2019; J96.01 Acute respiratory failure with hypoxia; J44.0 Chronic obstructive pulmonary disease with (acute) lower respiratory infection; J44.1 Chronic obstructive pulmonary disease with (acute) exacerbation; E87.2 Acidosis; Z68.43 Body mass index [BMI] 50.0-59.9, adult; K21.9 Gastro-esophageal reflux disease without esophagitis; Z96.653 Presence of artificial knee joint, bilateral; E66.01 Morbid (severe) obesity due to excess calories; I25.10 Atherosclerotic heart disease of native coronary artery without angina pectoris; E78.5 Hyperlipidemia, unspecified; I11.9 Hypertensive heart disease without heart failure; Z87.891 Personal history of nicotine dependence; Z82.49 Family history of ischemic heart disease and other diseases of the circulatory system; Z82.3 Family history of stroke; Z82.0 Family history of epilepsy and other diseases of the nervous system; Z79.899 Other long term (current) drug therapy; Z79.82 Long term (current) use of aspirin; I25.2 Old myocardial infarction; Z88.5 Allergy status to narcotic agent; Z91.041 Radiographic dye allergy status; Z98.890 Other specified postprocedural states
CPT/HCPCS: 36415; 71045; 80048; 80053; 82728; 83605; 83615; 83735; 84145; 85025; 85379; 85610; 85730; 86140; 87040; 87635; 93005; 94640; 94760; 96374; 99285

== ENCOUNTER → 2020-11-21 | Outpatient (CLI) | payer MEDICARE ==
--- NOTE | 2020-11-21 16:03 | CT ---
EXAMINATION TYPE: CT chest wo con DATE OF EXAM: 11/21/2020 COMPARISON: 04/11/2012 HISTORY: Abnormal lung field. Pt stated lower LT lobe. Pt hx Covid. CT DLP: 1007.5 mGycm, Automated exposure control for dose reduction was used. CONTRAST: None TECHNIQUE: Axial images were obtained at 1 mm thick sections at 10 mm intervals. This will limit po rtions of the examination which may not be visualized within the [id number]. Images were obtained in the prone and supine views. FINDINGS: Portion of the thyroid visualized is normal. There is some minimal subsegmental infiltrates within the periphery. Findings are nonspecific but can be compatible with atypical pneumonia. This does not have a typical appearance for pulmonary fibrosi s. 0.4 cm nodules in the periphery of the lingula. Series 9 image 18. No enlarged mediastinal or hilar adenopathy is evident. The ascending aorta diameter at the level o f the main pulmonary artery is 3.8 cm. The main pulmonary artery diameter at the bifurcation is 2.9 cm. Coronary artery calcifications present. There is a small hiatal hernia present. Limited CT sections are obtained through the upper abdomen. Abdomen is essentially unremarkable. IMPRESSIONS: 1. Very mild subsegmental infiltrate within the periphery of the lungs could be compatible with atypi umer pneumonia. Findings are not typical for pulmonary fibrosis.
== END | disposition home or self-care (01) ==
LOC: RADCTMAIN 15:05
PROVIDERS: ATTEND Family Medicine
DX: R91.8 Other nonspecific abnormal finding of lung field (principal)
CPT/HCPCS: 71250

== ENCOUNTER → 2021-09-18 | Outpatient (CLI) | payer MEDICARE ==
--- NOTE | 2021-09-21 11:00 | MM ---
Reason for exam: screening (asymptomatic). Last mammogram was performed 24 years ago. History: Patient is postmenopausal. Physical Findings: A clinical breast exam by your physician is recommended on an annual basis and results should be correlated with mammographic findings. MG 3D Screening Mammo W/Cad Bilateral CC and MLO view(s) were taken. XCCL view(s) were taken of the left breast. No prior studies available for comparison. There are scattered fibroglandular densities. Benign vascular calcifications bilaterally. A few benign oil cyst calcifications. Left 2 o'clock global asymmetry. No persisting abnormality on 3D images. No significant changes when compared with prior studies. ASSESSMENT: Benign, BI-RAD 2 RECOMMENDATION: Routine screening mammogram of both breasts in 1 year.
== END | disposition home or self-care (01) ==
LOC: RADMAMWWP 13:09
PROVIDERS: ATTEND Family Medicine
DX: Z12.31 Encounter for screening mammogram for malignant neoplasm of breast (principal); Z78.0 Asymptomatic menopausal state
CPT/HCPCS: 77063; 77067

== ENCOUNTER → 2021-12-18 | Outpatient (CLI) | payer MEDICARE ==
--- NOTE | 2021-12-18 14:14 | BD ---
EXAMINATION TYPE: Axial Bone Density DATE OF EXAM: 12/18/2021 COMPARISON: NONE CLINICAL HISTORY: 60 years year old Female. ICD-10 CODE: Z78.0 ASYMPTOMATIC MENOPAUSAL STATE Height: 5 FT 1 IN Weight: 291 FRAX RISK QUESTIONS: Alcohol (3 or more units per day): NO Family History (Parent hip fracture): NO Glucocorticoids (More than 3mos): NO (Ex: prednisone, prednisolone, methylprednisolone, dexamethasone, and hydrocortisone). History of Fracture in Adulthood: YES Secondary Osteoporosis: 1. Type 1 Diabetes: NO 2. Hyperthyroidism: NO 3. Menopause before 45: NO 4. Malnutrition: NO 5. Chronic liver disease: NO Rheumatoid Arthritis: NO Current Tobacco Use: NO RISK FACTORS HISTORY OF: Surgery to Spine/Hip(right/left)/Wrist (right/left): NO Family History of Osteoporosis: UNKNOWN Active: SOMEWHAT Diet low in dairy products/other sources of calcium: NO Postmenopausal woman: YES Take estrogen and/or progesterone medications: NO Lost more than 2 inches in height since high school: NO Frequent falls: NO Poor Health: FAIR Hyperparathyroidism: NO Adrenal Insufficiency: NO MEDICATIONS: Additional Medications: METFORMIN, TOPROL, ENDUR, ASPIRIN, OMEPRAZOLE, LIPITOR, ARTHRITIS MEDS, Additional History: EXAM MEASUREMENTS: Bone mineral densitometry was performed using the [employer] System. Bone mineral density as measured about the Lumbar spine is: ----- L1-L4(G/cm2): 0.917 T Score Values are as follows: ----- L1: -2.0 ----- L2: -2.0 ----- L3: -2.9 ----- L4: -2.0 ----- L1-L4: -2.2 BASELINE Bone mineral density about the R hip (g/cm2): 0.791 Bone mineral density about the L hip (g/cm2): 0.646 T Score values are as follows: -----R Neck: -1.8 -----L Neck: -2.8 -----R Total: -1.5 -----L Total: -1.9 BASELINE FRAX%s: The graph provided illustrates a 11.1 % chance for a major osteoporotic fx and a 2.4 % chance for the hips probability for fx in 10 years time. IMPRESSION: Osteopenia (T Score between -2.5 and -1). There is slightly increased risk of fracture and the patient may be considered for treatment. Re-Screen 2-5 years. NOTE: T-SCORE=SD OF THE YOUNG ADULT MEAN.
== END | disposition home or self-care (01) ==
LOC: RADBDWWP 12:34
PROVIDERS: ATTEND Family Medicine
DX: M85.89 Other specified disorders of bone density and structure, multiple sites (principal); Z78.0 Asymptomatic menopausal state
CPT/HCPCS: 77080

== ENCOUNTER → 2022-11-15 | Outpatient (CLI) | payer MEDICARE ==
--- NOTE | 2022-11-15 15:09 | MM ---
Reason for Exam: Screening (asymptomatic). Last mammogram was performed 1 year(s) and 2 month(s) ago. Patient History: Menarche at age 11. First Full-Term at age 16. Postmenopausal. Risk Values: Lisa 5 year model risk: 1.1%. NCI Lifetime model risk: 4.9%. Prior Study Comparison: 08/29/1997 Bilateral Special View Mammogram, [facility]. 09/12/1997 Right Diagnostic Mammogram, [facility]. 09/18/2021 Bilateral Screening Mammogram, [facility]. Tissue Density: There are scattered fibroglandular densities. Findings: Analyzed By CAD. There are few scattered benign-appearing tiny punctate calcifications in the bilateral breasts redemonstrated. Benign appearing vascular calcification bilaterally is redemonstrated. There is no suspicious new group of microcalcifications or new suspicious mass in either breast. Overall Assessment: Benign, BI-RAD 2 Management: Screening Mammogram of both breasts in 1 year. A clinical breast exam by your physician is recommended on an annual basis and results should be correlated with mammographic findings. Electronically signed and approved by: Renato Fan M.D.
== END | disposition home or self-care (01) ==
LOC: RADMAMWWP 13:46
PROVIDERS: ATTEND Family Medicine
DX: Z12.31 Encounter for screening mammogram for malignant neoplasm of breast (principal); R19.8 Other specified symptoms and signs involving the digestive system and abdomen; Z78.0 Asymptomatic menopausal state
CPT/HCPCS: 77063; 77067

== ENCOUNTER → 2022-11-29 | Outpatient (CLI) | payer MEDICARE ==
--- NOTE | 2022-11-29 11:39 | US ---
EXAMINATION TYPE: US abdomen complete DATE OF EXAM: 11/29/2022 COMPARISON: NONE CLINICAL HISTORY: R10.13 EPIGASTRIC PAIN. RUQ pain after eating x couple months TECHNIQUE: Multiple sonographic images of the abdomen are obtained. FINDINGS: EXAM MEASUREMENTS: Liver Length: 21.9 cm Gallbladder Wall: 0.2 cm CBD: 0.4 cm Spleen: 11.9 cm Right Kidney: 13.0 x 4.4 x 4.6 cm Left Kidney: 12.3 x 4.8 x 4.9 cm Pancreas: duct seen measuring 0.4cm Liver: enlarged, attenuating, mildly heterogeneous Gallbladder: wnl Evidence for sonographic Mcleod's sign: no CBD: visualized portions wnl, limited by overlying bowel gas Spleen: wnl Right Kidney: wnl Left Kidney: wnl Upper IVC: wnl Abd Aorta: visualized portions wnl, limited by overlying midline bowel gas The intrahepatic portion of the IVC and proximal abdominal aorta are within normal limits. There is no evidence of cholelithiasis. Common bile duct is unremarkable. The visualized portions of the judd creas are homogenous. The spleen is unremarkable. Kidneys are symmetric and free of hydronephrosis. No renal lesions are seen. IMPRESSION: 1. Hepatomegaly with underlying hepatic steatosis.
== END | disposition home or self-care (01) ==
LOC: RADUSWWP 09:29
PROVIDERS: ATTEND Family Medicine
DX: K76.0 Fatty (change of) liver, not elsewhere classified (principal); R16.0 Hepatomegaly, not elsewhere classified
CPT/HCPCS: 76700

== ENCOUNTER 2024-01-09 19:59 | Emergency (ER) | payer MEDICARE ==
[2024-01-09 20:15] VITALS: RESP 18; TEMP 98.1
--- NOTE | 2024-01-09 21:31 | ED ---
ENT HPI - General Chief complaint: Dental/Oral Stated complaint: Abcess of mouth,Hyperglycemia Time Seen by Provider: 01/09/24 21:12 Source: patient Mode of arrival: ambulatory Limitations: no limitations - History of Present Illness Initial comments: 63-year-old female presenting to the ED with complaints of dental pain. Patient states over the past few days has had pain of her right lower teeth. States that she touched her tooth yesterday and it cracked. Presenting to the ED secondary to pain of this. No fever or chills. No difficulty swallowing or difficulties breathing. Denies facial swelling. States that she has an appointment with her dentist tomorrow. Also states today her blood sugars have been up and down. In the waiting room her CBG was 200. No complaints of abdominal pain, nausea, vomiting. No other complaints at this time. - Related Data Home Medications Medication Instructions Recorded Confirmed Atorvastatin [Lipitor] 40 mg PO HS 05/07/14 12/24/20 Metoprolol Succinate [Toprol XL] 25 mg PO DAILY 05/07/14 12/24/20 Potassium Chloride [K-Tab ER] 10 meq PO BID 05/07/14 12/24/20 Isosorbide Mononitrate ER [Imdur] 30 mg PO DAILY 10/09/16 12/24/20 Omeprazole 40 mg PO DAILY 10/09/16 12/24/20 Furosemide [Lasix] 40 mg PO DAILY 05/17/17 12/24/20 Ipratropium-Albuterol Nebulize 3 ml INHALATION RT-QID 05/17/17 12/24/20 [Duoneb 0.5 mg-3 mg/3 ml Soln] Albuterol Sulfate [Ventolin HFA] 2 puff INHALATION RT-Q6H PRN 09/01/20 12/24/20 Cholecalciferol [Vitamin D3 (25 1,000 unit PO DAILY 09/01/20 12/24/20 Mcg = 1000 Iu)] metFORMIN HCL 500 mg PO DAILY 12/24/20 12/24/20 Previous Rx's Medication Instructions Recorded Budesonide-Formot 160-4.5 Mcg 2 puff INHALATION RT-BID #1 inh 09/03/20 [Symbicort 160-4.5 Mcg Inhaler] Amoxic-Pot Clav 875-125Mg 1 tab PO Q12HR 7 Days #14 tab 01/09/24 [Augmentin 875-125] Allergies Allergy/AdvReac Type Severity Reaction Status Date / Time Iodinated Contrast Media Allergy Severe Anaphylaxis/Decreased Verified 01/09/24 20:04 [Iodinated Contrast Media - Blood Oral and] Pressure codeine Allergy Rash/Nausea Verified 01/09/24 20:04 & Vomiting Review of Systems ROS Statement: Those systems with pertinent positive or pertinent negative responses have been documented in the HPI. ROS Other: All systems not noted in ROS Statement are negative. Past Medical History Past Medical History: Asthma, Coronary Artery Disease (CAD), Chest Pain / Angina, COPD, Diabetes Mellitus, Hyperlipidemia, Hypertension, Myocardial Infarction ([place]) Additional Past Medical History / Comment(s): bilateral cataracts, morbid obesity Last Myocardial Infarction Date:: 1997 History of Any Multi-Drug Resistant Organisms: None Reported Past Surgical History: Heart Catheterization, Orthopedic Surgery Additional Past Surgical History / Comment(s): B/L knee replacement, heart cath x5 Past Anesthesia/Blood Transfusion Reactions: No Reported Reaction Past Psychological History: No Psychological Hx Reported Smoking Status: Former smoker Past Alcohol Use History: Occasional Past Drug Use History: None Reported - Past Family History Father Family Medical History: Congestive Heart Failure (CHF), CVA/TIA, Hyperlipidemia, Hypertension Mother Additional Family Medical History / Comment(s): Epilepsy General Exam Limitations: no limitations General appearance: alert, in no apparent distress ENT exam: Present: other (Poor dentition. Patient does have a cracked right bottom molar with no surrounding swelling. No purulent discharge. No significant oropharyngeal swelling. No stridor. Tolerating secretions.) Neck exam: Present: normal inspection Respiratory exam: Present: normal lung sounds bilaterally Cardiovascular Exam: Present: regular rate GI/Abdominal exam: Present: soft Neurological exam: Present: alert, oriented X3 Skin exam: Present: warm, dry Course Vital Signs 01/09/24 20:00 Temperature 98.1 F Pulse Rate 81 Respiratory 18 Rate Blood Pressure 135/84 O2 Sat by Pulse 94 L Oximetry Medical Decision Making - Medical Decision Making Was pt. sent in by a medical professional or institution (, PA, BOBBIN DOFFER, urgent care, hospital, or senior care...) When possible be specific @ -No Did you speak to anyone other than the patient for history (EMS, parent, family, police, friend...)? What history was obtained from this source @ -No Did you review nursing and triage notes (agree or disagree)? Why? @ -I reviewed and agree with nursing and triage notes Were old charts reviewed (outside hosp., previous admission, EMS record, old EKG, old radiological studies, urgent care reports/EKG's, senior care records)? Report findings @ -No old charts were reviewed Differential Diagnosis (chest pain, altered mental status, abdominal pain women, abdominal pain men, vaginal bleeding, weakness, fever, dyspnea, syncope, headache, dizziness, GI bleed, back pain, seizure, CVA, palpatations, mental health, musculoskeletal)? @ -Ludwigs angina, periapical abscess, apical abscess, retropharyngeal abscess. This not meant to be an all-inclusive list EKG interpreted by me (3pts min.). @ -None X-rays interpreted by me (1pt min.). @ -None done CT interpreted by me (1pt min.). @ -None done U/S interpreted by me (1pt. min.). @ -None done What testing was considered but not performed or refused? (CT, X-rays, U/S, labs)? Why? @ -None What meds were considered but not given or refused? Why? @ -None Did you discuss the management of the patient with other professionals (professionals i.e. , PA, BOBBIN DOFFER, lab, RT, psych nurse, social psychologist, hydroelectric mechanic, teacher, residential care officer, case management coordinator)? Give summary @ -No Was smoking cessation discussed for >3mins.? @ -No Was critical care preformed (if so, how long)? @ -No Were there social determinants of health that impacted care today? How? (Homelessness, low income, unemployed, alcoholism, drug addiction, transportation, low edu. Level, literacy, decrease access to med. care, detention, rehab)? @ -No Was there de-escalation of care discussed even if they declined (Discuss DNR or withdrawal of care, Hospice)? DNR status @ -No What co-morbidities impacted this encounter? (DM, HTN, Smoking, COPD, CAD, Cancer, CVA, ARF, Chemo, Hep., AIDS, mental health diagnosis, sleep apnea, morbid obesity)? @ -None Was patient admitted / discharged? Hospital course, mention meds given and route, prescriptions, significant lab abnormalities, going to OR and other pertinent info. @ -Discharge 63-year-old female presenting to the ED with complaints of dental pain. On examination no stridor, no significant oropharyngeal swelling, tolerating secretions. Vital signs stable afebrile. At this time, patient states that she would just like to be sent home with pain medications and antibiotics. States that she has follow-up with her dentist tomorrow. Discharged home in stable condition. Discussed return precautions with patient who verbalized agreement. Provided starter packs for Augmentin and Tylenol 3. Prescribed Augmentin. Undiagnosed new problem with uncertain prognosis? @ -No Drug Therapy requiring intensive monitoring for toxicity (Heparin, Nitro, Insulin, Cardizem)? @ -No Were any procedures done? @ -No Diagnosis/symptom? @ -Dental pain Acute, or Chronic, or Acute on Chronic? @ -Acute Uncomplicated (without systemic symptoms) or Complicated (systemic symptoms)? @ -Uncomplicated Side effects of treatment? @ -No Exacerbation, Progression, or Severe Exacerbation? @ -No Poses a threat to life or bodily function? How? (Chest pain, [place], [place], pneumonia, PE, COPD, DKA, ARF, appy, cholecystitis, CVA, Diverticulitis, Homicidal, Suicidal, threat to staff... and all critical care pts) @ -No Disposition Clinical Impression: Pain, dental Disposition: HOME SELF-CARE Condition: Good Instructions (If sedation given, give patient instructions): Toothache (ED) Additional Instructions: Please return to the Emergency Department if symptoms worsen or any other concerns. Please follow-up with your dentist and your PCP. Prescriptions: Amoxic-Pot Clav 875-125Mg [Augmentin 875-125] 1 tab PO Q12HR 7 Days #14 tab Is patient prescribed a controlled substance at d/c from ED?: No Referrals: Sam Flores MD [Primary Care Provider] - 1-2 days Time of Disposition: 21:34
[2024-01-09] MEDS: AMOXIC-POT CLAV 875MG STARTER PACK 2 TAB BTL PO STA (21:43)
[2024-01-09] MEDS: IBUPROFEN 600 MG STARTER PACK 4 TAB BTL PO STA (21:43)
[2024-01-09 22:39] VITALS: BP 120/78; PULSE 63
== END 2024-01-09 21:56 | disposition home or self-care (01) ==
LOC: EC 19:59
DX: K08.89 Other specified disorders of teeth and supporting structures (principal); E66.01 Morbid (severe) obesity due to excess calories; Z88.5 Allergy status to narcotic agent; Z91.041 Radiographic dye allergy status; Z68.43 Body mass index [BMI] 50.0-59.9, adult; Z87.891 Personal history of nicotine dependence
CPT/HCPCS: 99282

== ENCOUNTER → 2024-11-23 | Outpatient (CLI) | payer MEDICARE ==
--- NOTE | 2024-11-23 14:08 | BD ---
EXAMINATION TYPE: Axial Bone Density DATE OF EXAM: 11/23/2024 CLINICAL HISTORY: 63 years old Female. ICD-10 CODE: N95.5 MENOPAUSAL AND PERIMENOPAUSAL DISORDER , A dditional History: Height: 289 Weight: 5 ft FRAX RISK QUESTIONS: Alcohol (3 or more units per day): no Family History (Parent hip fracture): yes Glucocorticoids (More than 3mos): no (Ex: prednisone, prednisolone, methylprednisolone, dexamethasone, and hydrocortisone). History of Fracture in Adulthood: yes Secondary Osteoporosis: 1. Type 1 Diabetes: type 2 2. Hyperthyroidism: no 3. Menopause before 45: no 4. Malnutrition: no 5. Chronic liver disease: no Rheumatoid Arthritis: no Current Tobacco Use: no RISK FACTORS HISTORY OF: Surgery to Spine/Hip(right/left)/Wrist (right/left): no MEDICATIONS: Thyroid Medications: none Osteoporosis Medications: none EXAM MEASUREMENTS: Bone mineral densitometry was performed using the [employer] System. Bone mineral density as measured about the Lumbar spine is: ----- L1-L4(G/cm2): 0.948 T Score Values are as follows: ----- L1: -1.4 ----- L2: -3.0 ----- L3: -2.9 ----- L4: -1.0 ----- L1-L4: -1.9 Z Score Values are as follows: ----- L1: -0.9 ----- L2: -2.5 ----- L3: -2.5 ----- L4: -0.6 ----- L1-L4: -1.5 Bone mineral density has: increased 3.4 % since study of: 2021 Bone mineral density about the R hip (g/cm2): 0.674 Bone mineral density about the L hip (g/cm2): 0.680 T Score values are as follows: -----R Neck: -2.6 -----L Neck: -2.6 -----R Total: -2.1 -----L Total: -2.0 Z Score values are as follows: -----R Neck: -1.9 -----L Neck: -1.8 -----R Total: -1.7 -----L Total: -1.6 Bone mineral density has: decreased -5.2 % since study of: 2021 FRAX%s: The graph provided illustrates a 17.5 % chance for a major osteoporotic fx and a 3.5 % chance for the hips probability for fx in 10 years time. IMPRESSION: Osteopenia (T Score between -2.5 and -1). There is slightly increased risk of fracture and the patient may be considered for treatment. Re-Screen 2-5 years. NOTE: T-SCORE=SD OF THE YOUNG ADULT MEAN. [facility], , 11/23/2024 2:05 PM
== END | disposition home or self-care (01) ==
LOC: RADBDWWP 12:55
PROVIDERS: ATTEND Family Medicine
DX: M85.89 Other specified disorders of bone density and structure, multiple sites (principal); N95.9 Unspecified menopausal and perimenopausal disorder
CPT/HCPCS: 77080

== ENCOUNTER 2024-12-12 14:48 | Emergency (ER) | payer MEDICARE ==
--- NOTE | 2024-12-12 15:27 | ED ---
General Adult HPI - General Chief complaint: Shortness of Breath Stated complaint: SOB Time Seen by Provider: 12/12/24 15:05 Source: patient, RN notes reviewed, old records reviewed Mode of arrival: ambulatory Limitations: no limitations - History of Present Illness Initial comments: 63-year-old female who presents to the emergency department the past medical history significant for asthma and COPD. Patient states since she has been getting more short of breath. Patient states today it seemed to be worsening she is coughing up some dark sputum. Patient denies any chest pain or palpitations. Patient denies any fever or chills. Patient denies any abdominal pain. Patient Nuys any nausea vomiting diarrhea. Patient denies any swelling o f the feet or edema patient denies calf tenderness - Related Data Home Medications Medication Instructions Recorded Confirmed Atorvastatin [Lipitor] 40 mg PO HS 05/07/14 12/24/20 Metoprolol Succinate [Toprol XL] 25 mg PO DAILY 05/07/14 12/24/20 Potassium Chloride [K-Tab ER] 10 meq PO BID 05/07/14 12/24/20 Isosorbide Mononitrate ER [Imdur] 30 mg PO DAILY 10/09/16 12/24/20 Omeprazole 40 mg PO DAILY 10/09/16 12/24/20 Furosemide [Lasix] 40 mg PO DAILY 05/17/17 12/24/20 Ipratropium-Albuterol Nebulize 3 ml INHALATION RT-QID 05/17/17 12/24/20 [Duoneb 0.5 mg-3 mg/3 ml Soln] Albuterol Sulfate [Ventolin HFA] 2 puff INHALATION RT-Q6H PRN 09/01/20 12/24/20 Cholecalciferol [Vitamin D3 (25 1,000 unit PO DAILY 09/01/20 12/24/20 Mcg = 1000 Iu)] metFORMIN HCL 500 mg PO DAILY 12/24/20 12/24/20 Previous Rx's Medication Instructions Recorded Budesonide-Formot 160-4.5 Mcg 2 puff INHALATION RT-BID #1 inh 09/03/20 [Symbicort 160-4.5 Mcg Inhaler] Amoxic-Pot Clav 875-125Mg 1 tab PO Q12HR 7 Days #14 tab 01/09/24 [Augmentin 875-125] Azithromycin [Zithromax Tri-Abner (3 500 mg PO DAILY 3 Days #3 tab 12/12/24 tabs)] predniSONE [Deltasone] 40 mg PO DAILY #8 tab 12/12/24 Allergies Allergy/AdvReac Type Severity Reaction Status Date / Time Iodinated Contrast Media Allergy Severe Anaphylaxis/Decreased Verified 12/12/24 15:02 [Iodinated Contrast Media - Blood Oral and] Pressure codeine Allergy Rash/Nausea Verified 12/12/24 15:02 & Vomiting Review of Systems ROS Statement: Those systems with pertinent positive or pertinent negative responses have been documented in the HPI. ROS Other: All systems not noted in ROS Statement are negative. Past Medical History Past Medical History: Asthma, Coronary Artery Disease (CAD), Chest Pain / An dima, COPD, Diabetes Mellitus, Hyperlipidemia, Hypertension, Myocardial Infarction (RI) Additional Past Medical History / Comment(s): bilateral cataracts, morbid obesity Last Myocardial Infarction Date:: 1997 History of Any Multi-Drug Resistant Organisms: None Reported Past Surgical History: Heart Catheterization, Orthopedic Surgery Additional Past Surgical History / Comment(s): B/L knee replacement, heart cath x5 Past Anesthesia/Blood Transfusion Reactions: No Reported Reaction Past Psychological History: No Psychological Hx Reported Smoking Status: Former smoker Past Alcohol Use History: Occasional Past Drug Use History: None Reported - Past Family History Father Family Medical History: Congestive Heart Failure (CHF), CVA/TIA, Hyperlipidemia, Hypertension Mother Additional Family Medical History / Comment(s): Epilepsy General Exam - General Exam Comments Initial Comments: GENERAL: Patient is well-developed and well-nourished. Patient is nontoxic and well- hydrated and is in mild distress. ENT: Neck is soft and supple. No significant lymphadenopathy is noted. Oropharynx is clear. Moist mucous membranes. Neck has full range of motion without eliciting any pain. EYES: The sclera were anicteric and conjunctiva were pink and moist. Extraocular movements were intact and pupils were equal round and reactive to light. Eyelids were unremarkable. PULMONARY: Unlabored respirations. Good breath sounds bilaterally. No audible rales rhonchi or wheezing was noted. CARDIOVASCULAR: There is a regular rate and rhythm without any murmurs gallops or rubs. ABDOMEN: Soft and nontender with normal bowel sounds. SKIN: Skin is clear with no lesions or rashes and otherwise unremarkable. NEUROLOGIC: Patient is alert and oriented x3. Cranial nerves II through XII are grossly intact. Motor and sensory are also intact. Normal speech, volume and content. Symmetrical smile. MUSCULOSKELETAL: Normal extremities with adequate strength and full range of motion. LYMPHATICS: No significant lymphadenopathy is noted PSYCHIATRIC: Normal psychiatric evaluation. Limitations: no limitations Course Vital Signs 12/12/24 12/12/24 12/12/24 15:00 15:40 15:48 Temperature 97.7 F Pulse Rate 67 82 88 Respiratory 22 Rate Blood Pressure 122/57 O2 Sat by Pulse 96 Oximetry Medical Decision Making - Medical Decision Making EKG is interpreted by myself EKG shows a sinus rhythm with an occasional PVC at 70 bpm SD interval 153 QRS is 100 QT interval is 384 QTc is 4 4 EKG shows some T wave inversions in V1 through V4 which is seen on old EKG. Was pt. sent in by a medical professional or institution (, PA, BUS INFO CONSULTANT, urgent care, hospital, or fpc...) When possible be specific @ -No Did you speak to anyone other than the patient for history (EMS, parent, family, police, friend...)? What history was obtained from this source @ -No Did you review nursing and triage notes (agree or disagree)? Why? @ -I reviewed and agree with nursing and triage notes Were old charts reviewed (outside hosp., previous admission, EMS record, old EKG, old radiological studies, urgent care reports/EKG's, fpc records)? Report findings @ -No old charts were reviewed Differential Diagnosis? @ -Differential Dyspnea: Coronary syndrome, arrhythmia, tamponade, asthma, COPD, pulmonary embolism, pneumonia, pneumothorax, pulmonary effusion, anaphylaxis, diabetic ketoacidosis, flailed chest, pulmonary contusion, diaphragmatic rupture, anemia, neuromuscular, this is not meant to be an all-inclusive list. EKG interpreted by me (3pts min.). @ -As above X-rays interpreted by me (1pt min.). @ -Chest x-ray shows no acute abnormality CT interpreted by me (1pt min.). @ -None done U/S interpreted by me (1pt. min.). @ -None done What testing was considered but not performed or refused? (CT, X-rays, U/S, labs)? Why? @ -None What meds were considered but not given or refused? Why? @ -None Did you discuss the management of the patient with other professionals (professionals i.e. DrAlia, PA, BUS INFO CONSULTANT, lab, RT, psych nurse, social worker masters, lighter captain, teacher, security vehicle patrol officer, window caser)? Give summary @ -No Was smoking cessation discussed for >3mins.? @ -No Was critical care preformed (if so, how long)? @ -No Were there social determinants of health that impacted care today? How? (Homelessness, low income, unemployed, alcoholism, drug addiction, transportation, low edu. Level, literacy, decrease access to med. care, senior living, rehab)? @ -No Was there de-escalation of care discussed even if they declined (Discuss DNR or withdrawal of care, Hospice)? DNR status @ -No What co-morbidities impacted this encounter? (DM, HTN, Smoking, COPD, CAD, Cancer, CVA, ARF, Chemo, Hep., AIDS, mental health diagnosis, sleep apnea, morbid obesity)? @ -None Was patient admitted / discharged? Hospital course, mention meds given and route, prescriptions, significant lab abnormalities, going to OR and other pertinent info. @ -Patient received a breathing treatment in the emergency department as well as steroids. She was feeling better. Patient also was coughing up some green sputum and it was diagnosed with tracheobronchitis this patient was given 2 g of Rocephin in the emergency department will be sent home with Zithromax Undiagnosed new problem with uncertain prognosis? @ -No Drug Therapy requiring intensive monitoring for toxicity (Heparin, Nitro, Insulin, Cardizem)? @ -No Were any procedures done? @ -No Diagnosis/symptom? @ -Tracheobronchitis Acute, or Chronic, or Acute on Chronic? @ -Acute Uncomplicated (without systemic symptoms) or Complicated (systemic symptoms)? @ -Complicated Side effects of treatment? @ -No Exacerbation, Progression, or Severe Exacerbation? @ -No Poses a threat to life or bodily function? How? (Chest pain, USA, RI, pneumonia, PE, COPD, DKA, ARF, appy, cholecystitis, CVA, Diverticulitis, Homicidal, Suicidal, threat to staff... and all critical care pts) @ -No - Lab Data Result diagrams: 12/12/24 15:58 12/12/24 15:58 Lab Results 0412/12/24 12/12/24 Range/Units 15:58 15:58 15:58 WBC 12.04 H (4.50-10.00) 10*3/uL RBC 4.67 (4.10-5.20) 10*6/uL Hgb 13.0 (12.0-15.0) g/dL Hct 41.2 (37.2-46.3) % MCV 88.2 (80.0-97.0) fL MCH 27.8 (27.0-32.0) pg MCHC 31.6 L (32.0-37.0) g/dL Plt Count 244 (140-440) 10*3/uL MPV 10.6 (9.5-12.2) fL Immature Gran % (Auto) 0.2 % Neutrophils % 74.4 % Lymphocytes % 13.9 % Monocytes % 8.7 % Eosinophils % 2.1 % Basophils % 0.7 % Immature Gran # 0.03 (0.00-0.04) 10*3/uL Neutrophils # 8.96 H (1.80-7.70) 10*3/uL Lymphocytes # 1.67 (0.90-5.00) 10*3/uL Monocytes # 1.05 H (0.20-1.00) 10*3/uL Eosinophils # 0.25 (0.04-0.35) 10*3/uL Basophils # 0.08 (0.00-0.10) 10*3/uL Sodium 137 (137-145) mmol/L Potassium 4.8 (3.5-5.1) mmol/L Chloride 102 (98-107) mmol/L Carbon Dioxide 27 (22-30) mmol/L Anion Gap 8 mmol/L BUN 22 H (7-17) mg/dL Creatinine 0.58 (0.52-1.04) mg/dL Est GFR (CKD-EPI)AfAm >90 (>60 ml/min/1.73 sqM) Est GFR (CKD-EPI)NonAf >90 (>60 ml/min/1.73 sqM) Glucose 103 H (74-99) mg/dL Plasma Lactic Acid Elvis 1.9 (0.7-2.0) mmol/L Calcium 9.3 (8.4-10.2) mg/dL Magnesium 1.7 (1.6-2.3) mg/dL Total Bilirubin 1.1 (0.2-1.3) mg/dL AST 31 (14-36) U/L ALT 18 (4-34) U/L Alkaline Phosphatase 125 (38-126) U/L Troponin I (0.000-0.034) ng/mL Total Protein 6.9 (6.3-8.2) g/dL Albumin 4.1 (3.5-5.0) g/dL 12/12/24 Range/Units 15:58 WBC (4.50-10.00) 10*3/uL RBC (4.10-5.20) 10*6/uL Hgb (12.0-15.0) g/dL Hct (37.2-46.3) % MCV (80.0-97.0) fL MCH (27.0-32.0) pg MCHC (32.0-37.0) g/dL Plt Count (140-440) 10*3/uL MPV (9.5-12.2) fL Immature Gran % (Auto) % Neutrophils % % Lymphocytes % % Monocytes % % Eosinophils % % Basophils % % Immature Gran # (0.00-0.04) 10*3/uL Neutrophils # (1.80-7.70) 10*3/uL Lymphocytes # (0.90-5.00) 10*3/uL Monocytes # (0.20-1.00) 10*3/uL Eosinophils # (0.04-0.35) 10*3/uL Basophils # (0.00-0.10) 10*3/uL Sodium (137-145) mmol/L Potassium (3.5-5.1) mmol/L Chloride (98-107) mmol/L Carbon Dioxide (22-30) mmol/L Anion Gap mmol/L BUN (7-17) mg/dL Creatinine (0.52-1.04) mg/dL Est GFR (CKD-EPI)AfAm (>60 ml/min/1.73 sqM) Est GFR (CKD-EPI)NonAf (>60 ml/min/1.73 sqM) Glucose (74-99) mg/dL Plasma Lactic Acid Elvis (0.7-2.0) mmol/L Calcium (8.4-10.2) mg/dL Magnesium (1.6-2.3) mg/dL Total Bilirubin (0.2-1.3) mg/dL AST (14-36) U/L ALT (4-34) U/L Alkaline Phosphatase (38-126) U/L Troponin I 0.015 (0.000-0.034) ng/mL Total Protein (6.3-8.2) g/dL Albumin (3.5-5.0) g/dL Disposition Clinical Impression: Tracheobronchitis Disposition: HOME SELF-CARE Instructions (If sedation given, give patient instructions): Chronic Diarrhea (ED) Prescriptions: predniSONE [Deltasone] 40 mg PO DAILY #8 tab Azithromycin [Zithromax Tri-Abner (3 tabs)] 500 mg PO DAILY 3 Days #3 tab Is patient prescribed a controlled substance at d/c from ED?: No Referrals: Sam Flores MD [Primary Care Provider] - 1-2 days Time of Disposition: 18:23
[2024-12-12] MEDS: IPRATROPIUM-ALBUTEROL 3 ML NEB INHALATION STA (15:39)
[2024-12-12] MEDS: methylPREDNISolone SOD SUCCI 125 MG/2 ML VIAL IV STA (16:07)
[2024-12-12 16:11] LABS: Basophils # (A) 0.08 10*3/uL (0.00-0.10); Basophils % (A) 0.7 %; Eosinophils # (A) 0.25 10*3/uL (0.04-0.35); Eosinophils % (A) 2.1 %; HCT 41.2 % (37.2-46.3); Lymphocytes # (A) 1.67 10*3/uL (0.90-5.00); Lymphocytes % (A) 13.9 %; MCH 27.8 pg (27.0-32.0); MCHC 31.6 g/dL (32.0-37.0); MCV 88.2 fL (80.0-97.0); Mean Platelet Volume 10.6 fL (9.5-12.2); Monocytes # (A) 1.05 10*3/uL (0.20-1.00); Monocytes % (A) 8.7 %; Neutrophils # (A) 8.96 10*3/uL (1.80-7.70); Neutrophils % (A) 74.4 %; Platelet Count 244 10*3/uL (140-440); RBC 4.67 10*6/uL (4.10-5.20); RDW 14.4 % (11.5-14.5); WBC 12.04 10*3/uL (4.50-10.00)
--- NOTE | 2024-12-12 16:19 | XR ---
EXAMINATION TYPE: XR chest 2V DATE OF EXAM: 12/12/2024 4:14 PM COMPARISON: Chest radiographs from 11/07/2020, CT chest 11/21/2020 TECHNIQUE: XR chest 2V Frontal and lateral views of the chest. CLINICAL INDICATION:Female, 63 years old with history of difficulty breathing; FINDINGS: Lungs/Pleura: There is flattening of the diaphragm with increased lucency of the lungs. No evidence o f pneumothorax, pleural effusion or focal consolidation. Chronic interstitial prominence. Pulmonary vascularity: Unremarkable. Heart/mediastinum: Cardiomediastinal silhouette is enlarged and stable. Musculoskeletal: Multiple level degenerative disc disease changes seen throughout the spine. IMPRESSION: 1. No acute cardiopulmonary disease process. 2. COPD changes. [facility], , 12/12/2024 4:17 PM
[2024-12-12 16:26] LABS: ALT 18 U/L (4-34); African American GFR (CKD) >90 (>60 ml/min/1.73 sqM); Albumin 4.1 g/dL (3.5-5.0); Anion Gap 8 mmol/L; Blood Urea Nitrogen 22 mg/dL (7-17); Calcium 9.3 mg/dL (8.4-10.2); Carbon Dioxide 27 mmol/L (22-30); Chloride 102 mmol/L (98-107); Glucose 103 mg/dL (74-99); Non-African American GFR(CKD) >90 (>60 ml/min/1.73 sqM); Sodium 137 mmol/L (137-145); Total Bilirubin 1.1 mg/dL (0.2-1.3); Total Protein 6.9 g/dL (6.3-8.2)
[2024-12-12 16:41] LABS: Potassium 4.8 mmol/L (3.5-5.1)
[2024-12-12 16:42] LABS: AST 31 U/L (14-36); Alkaline Phosphatase 125 U/L (38-126); Magnesium 1.7 mg/dL (1.6-2.3)
[2024-12-12] MEDS: DIPHENOX-ATROP STARTER PACK 8 TAB BTL PO STA (18:55)
[2024-12-12 19:00] VITALS: BP 110/61; PULSE 65; RESP 20; TEMP 98.5
[2024-12-12] MEDS: cefTRIAXone IN SWFI 1,000 MG/10 ML SYRINGE IVP STA ×2 (19:00→19:03)
== END 2024-12-12 19:26 | disposition home or self-care (01) ==
LOC: EC 14:48
DX: J40 Bronchitis, not specified as acute or chronic (principal); Z91.041 Radiographic dye allergy status; Z88.5 Allergy status to narcotic agent; Z87.891 Personal history of nicotine dependence
CPT/HCPCS: 99285; 96374; 96375; 36415; 94640; 93005; 80053; 83605; 83735; 84484; 85025; 71046; J0696; J2919